=== PATIENT | male | born 1990 | race Caucasian/White ===

== ENCOUNTER 2017-10-19 16:19 | Inpatient (IN) | payer MEDICAID, SELFPAY ==
[~2017-10-19] VITALS: Ht 182.9 cm; Wt 90.9 kg
[~2017-10-19 16:19] MED LIST: AMLO10TA PO; AMLO10TA2 PO; ASPI325T PO; BENA25CA2 PO; DEPA250T32 PO; FIORICET OR; FOLI1TAB4 PO; GEMF600T PO; IBUPOTC PO; KPHOS50TA PO; LEVO750T13 PO; MAGN1TAB25 PO; MAGN400T2 PO; METO1TAB32 PO; NICO14DI3 TD; NICO21DI5 TD; NO HOME MEDS; No Historical Meds; OMEP20CA3 PO; OXAZ15CA4 PO; PERC5TAB12 PO; PERC7.5T8 OR; PERCOCET PO; THIA100TA PO; THIA50CA PO; TYLE1TAB5 PO; VITA100T88 PO; [UNRECOGNIZED DRUG - REMARK]; serax PO
[2017-10-19 18:11] LABS: BASO % 0.2 % (0.0-1.0); EOS # 0.3 10^3/uL (0.0-0.50); EOS % 1.3 % (0.0-3.0); IMMATURE GRANULOCYTE % 0.4 % (0-0); LYMPH # 2.6 10^3/uL (1.5-6.5); LYMPH % 12.7 % (24.0-44.0); MEAN CORPUSCULAR HEMOGLOBIN 33.9 pg (27.0-33.0); MEAN CORPUSCULAR HGB CONC 34.3 g/dl (32.0-36.5); MEAN CORPUSCULAR VOLUME 98.9 fl (80.0-96.0); MONO # 1.1 10^3/uL (0.0-0.8); MONO % 5.4 % (0.0-5.0); NEUTROPHILS # 16.4 10^3/uL (1.8-7.7); PLATELET COUNT, AUTOMATED 259 10^3/uL (150-450); RED CELL DISTRIBUTION WIDTH 12.9 % (11.5-14.5); WHITE BLOOD COUNT 20.4 10^3/uL (4.0-10.0)
[2017-10-19] MEDS ORDERED: ONDANSETRON 4MG/2ML VIAL (J2405) IV ONE (18:30)
[2017-10-19] MEDS ORDERED: HYDROmorphone HCL 1 MG/ML SYRINGE (J1170) IV ONE ×3 (18:30→23:30)
[2017-10-19 18:36] LABS: ALBUMIN 4.5 GM/DL (3.2-5.2); ALBUMIN/GLOBULIN RATIO 1.22 (1.00-1.93); ALKALINE PHOSPHATASE 54 U/L (45-117); ALT/SGPT 34 U/L (12-78); ANION GAP 7 MEQ/L (8-16); AST/SGOT 17 U/L (7-37); BILIRUBIN,DIRECT < 0.1 MG/DL (0.0-0.2); BILIRUBIN,TOTAL 0.5 MG/DL (0.2-1.0); BLOOD UREA NITROGEN 14 MG/DL (7-18); CALCIUM LEVEL 9.8 MG/DL (8.5-10.1); CARBON DIOXIDE LEVEL 27 MEQ/L (21-32); CHLORIDE LEVEL 104 MEQ/L (98-107); CREATININE FOR GFR 0.89 MG/DL (0.70-1.30); GLOMERULAR FILTRATION RATE > 60.0 (>60); GLUCOSE, FASTING 149 MG/DL (70-105); POTASSIUM SERUM 3.5 MEQ/L (3.5-5.1); SODIUM LEVEL 138 MEQ/L (136-145); TOTAL PROTEIN 8.2 GM/DL (6.4-8.2)
[2017-10-19] MEDS ORDERED: ISOVUE-370 76% 100ML VIAL (Q9967) As Ordered ONE (18:42)
--- NOTE | 2017-10-19 18:58 | REP ---
Clinical: Chest pain . Comparison: 08/18/2015. Findings: The mediastinum and cardiac silhouette are stable and within normal limits for portable technique. The lung rainey are clear without acute consolidation, effusion, or pneumothorax. Skeletal structures are intact. Impression: No acute cardiopulmonary process appreciated. Signed by Andrez Galdamez MD 10/19/2017 06:50 P
--- NOTE | 2017-10-19 19:23 | REP ---
Clinical: Abdominal pain. Pancreatitis. Technique: Axial contrast enhanced images from the lung bases to the pubic symphysis using 100 ml Isovue 370 intravenous contrast material with coronal and sagittal re-formations. Comparison: 04/27/2016 Findings: Mild inflammatory stranding surrounds the pancreas without evidence for ischemia, necrosis, or drainable fluid collection/abscess/pseudocyst. The gallbladder is mildly dilated with without evidence for cholelithiasis or acute cholecystitis by CT evaluation. Liver, spleen, bilateral adrenal glands and kidneys are normal. The enteric system is without obstruction or acute inflammatory process. Normal terminal ileum and appendix are identified in the right lower quadrant. Pelvis demonstrates normal bladder and age appropriate prostate/seminal vesicles. No pelvic fluid or ascites. No retroperitoneal adenopathy. No free air. No obvious solitary mass lesion. Abdominal aorta and vasculature is normal. Musculoskeletal structures are intact without focal osseous abnormality. Impression: 1. Mild acute pancreatitis without evidence for pancreatic ischemia/necrosis and no evidence for drainable collection/abscess or pseudocyst. 2. The gallbladder is mildly distended but without CT evidence for acute cholecystitis or cholelithiasis. Signed by Andrez Galdamez MD 10/19/2017 07:15 P
--- NOTE | 2017-10-19 19:54 | ECGEPIP ---
Stationary ECG Study [facility] - ED Test Date: 2017-10-19 Pat Name: ALLEGRA WEST Department: Room: - Gender: M [employer] Supervisor: PETERSON : [id number] Requested By: Jose Mercado Order Number: [id number] Reading MD: Jose Mercado Measurements Intervals [place] Rate: 90 P: 41 [place]: 137 QRS: 30 QRSD: 88 T: 29 QT: 364 QTc: 447 Interpretive Statements SINUS RHYTHM CW 04/28/16 RATE INCREASED Electronically Signed On 10-19-2017 19:54:14 EST by Jose Mercado
[2017-10-19] MEDS ORDERED: NS 1,000 ML IV ONE (21:00)
[2017-10-19 21:16] LABS: MUCUS, URINE RFX SMALL (NEGATIVE); SPECIFIC GRAVITY UR AUTO RFX 1.048 (1.002-1.035); SQUAM EPITHELIAL CELL UR AURFX 0 /HPF (0-6)
[2017-10-19 23:12] LABS: AMYLASE 26 U/L (25-115)
[2017-10-19] MEDS ORDERED: KETOROLAC 30 MG/ML VIAL (J1885) IV ONE (23:30)
[2017-10-19] MEDS: NS 1,000 ML IV SCH (23:35)
[2017-10-19 23:42] LABS: TRIGLYCERIDES LEVEL 789 MG/DL (<150)
[2017-10-19] MEDS ORDERED: ALBUTEROL SULFATE 2.5 MG/0.5 ML INH NEB SOLN INH PRN (23:45)
[2017-10-19] MEDS ORDERED: HYDROmorphone HCL 1 MG/ML SYRINGE (J1170) IV PRN (23:45)
[2017-10-19] MEDS ORDERED: ONDANSETRON 4MG/2ML VIAL (J2405) IV PRN (23:45)
[2017-10-20 00:06] LABS: METHADONE URINE NEGATIVE (NEGATIVE)
[2017-10-20 00:30] VITALS: BP 137/100
--- NOTE | 2017-10-20 00:40 | REPUSA ---
Clinical history: Right upper quadrant pain. Findings: The pancreas is limited in visualization secondary to overlying bowel gas, but appears levon sly unremarkable. The liver demonstrates increased echotexture and echogenicity, with no mass lesions . The gallbladder is unremarkable. The common bile duct measures 6 mm and is within normal limits. Th ere is no ascites. The right kidney measures 10.7 cm in length and is unremarkable. Impression: Mild fatty infiltration of the liver.
[2017-10-20] MEDS: HYDROmorphone HCL 1 MG/ML SYRINGE (J1170) IV PRN ×7 (00:53→23:38)
[2017-10-20 06:00] VITALS: BP 131/85
[2017-10-20 06:31] LABS: BASO % 0.2 % (0.0-1.0); EOS # 0.2 10^3/uL (0.0-0.50); EOS % 1.7 % (0.0-3.0); IMMATURE GRANULOCYTE % 0.4 % (0-0); LYMPH # 3.2 10^3/uL (1.5-6.5); LYMPH % 22.7 % (24.0-44.0); MEAN CORPUSCULAR HEMOGLOBIN 33.7 pg (27.0-33.0); MEAN CORPUSCULAR HGB CONC 33.9 g/dl (32.0-36.5); MEAN CORPUSCULAR VOLUME 99.2 fl (80.0-96.0); MONO % 7.1 % (0.0-5.0); NEUTROPHILS # 9.7 10^3/uL (1.8-7.7); NEUTROPHILS % 67.9 % (36.0-66.0); PLATELET COUNT, AUTOMATED 198 10^3/uL (150-450); RED CELL DISTRIBUTION WIDTH 13.1 % (11.5-14.5); WHITE BLOOD COUNT 14.2 10^3/uL (4.0-10.0)
--- NOTE | 2017-10-20 06:49 | HPE ---
DATE OF ADMISSION: 10/19/2017 Mr. Toney is a patient of BRENDA Contreras. Chief complaint is abdominal pain. The following is a summary of his presentation. This is a 27-year-old who began having abdominal pain two nights ago after dinner. It impacted his sleep. It has been consistently getting worse since then. Focused in the left upper quadrant. It goes around to his back. He has had no bowel movement in 1-2 days. No urinary symptoms. The pain is described as sharp, constant. It feels as though pliers are grabbing him. With the use of Dilaudid, the pain moderates to 6, but otherwise is a 7-8. He took an aspirin at home with no effect. The pain is not positional. He has had one episode of vomiting yesterday. He has an ADVERSE DRUG REACTION TO MORPHINE. He is currently not taking any medications at home. Past medical history is notable for pancreatitis, gastroesophageal reflux disease (GERD). No previous surgical history. Socially, he is a previous drinker. He denies alcohol use recently. He does have history of illicit drug use. Family history is notable that both parents are healthy. Review of systems is notable for no headaches, no visual changes, no runny nose, no sore throat. No neck pain. No cough. No shortness of breath. No palpitations. No bowel movement in 2 days. No urinary symptoms. No focal weakness. Otherwise, unremarkable. On physical exam, temperature is 97, pulse 52, respiratory rate is 18, blood pressure 163/94, 99% on room air. He is awake, appropriately interactive, pleasantly conversant, but does appear uncomfortable. Head is normocephalic. Sinuses are nontender. Pupils equal, round and reactive, anicteric. Mucous membranes are moist. Neck is supple. Breathing is symmetrical, rested. I-to-E ratio is 1:3. There are scattered polyphonic wheezes. Abdomen is soft with hypoactive bowel sounds. Mild left upper quadrant tenderness without rebound or guarding. There is no lower extremity edema. His moving all four extremities. He is able to move around easily in bed. Sodium 138, potassium 3.5, BUN 14, creatinine 0.9, glucose 149, troponin negative, lipase 254. White cell count is 20.4, hemoglobin 14.8 and platelets of 259. Two blood cultures are pending. Urinalysis (UA) is notable for 2+ glucose, trace ketones. Chest x-ray shows no acute process. Abdominal and pelvic CT shows mild acute pancreatitis without evidence of pancreatic ischemia or necrosis. Mildly distended gallbladder. My assessment is as follows: This is a 27-year-old with acute abdominal pain, history of pancreatitis, which is most likely early pancreatitis. Plan will be as follows: 1. Gastrointestinal (GI). Patient will be nothing by mouth, placed on intravenous (IV) fluid, begin pain management and antiemetics as needed. Repeat labs in the morning. Followup his clinical course. His CT scan suggests pancreatitis but lipase is oddly not elevated. White cell count is elevated. There is no evidence of pyelonephritis or hydronephrosis. He does appear to have an ileus. I have expressed to the patient that I believe this may be early pancreatitis but we will need to monitor him clinically in the hospital to determine whether or not there is another diagnosis at play. 2. Patient has history of gastroesophageal reflux disease. 3. Patient has history of alcohol use, but denies alcohol use currently. Patient has previous evidence of hypertriglyceridemia, is not currently on medication for that. We will check his triglycerides again. 4. Deep venous thrombosis (DVT) prophylaxis will be ordered. 5. Patient did have some wheezes on exam. Nebulizers will be ordered as needed.
[2017-10-20 07:01] LABS: ALBUMIN 3.5 GM/DL (3.2-5.2); ALKALINE PHOSPHATASE 47 U/L (45-117); ALT/SGPT 23 U/L (12-78); ANION GAP 6 MEQ/L (8-16); AST/SGOT 13 U/L (7-37); BILIRUBIN,TOTAL 0.7 MG/DL (0.2-1.0); BLOOD UREA NITROGEN 12 MG/DL (7-18); CALCIUM LEVEL 10.4 MG/DL (8.5-10.1); CARBON DIOXIDE LEVEL 28 MEQ/L (21-32); CHLORIDE LEVEL 106 MEQ/L (98-107); CREATININE FOR GFR 0.75 MG/DL (0.70-1.30); GLOMERULAR FILTRATION RATE > 60.0 (>60); GLUCOSE, FASTING 98 MG/DL (70-105); MAGNESIUM LEVEL 1.9 MG/DL (1.8-2.4); SODIUM LEVEL 140 MEQ/L (136-145)
[2017-10-20] MEDS: NS 1,000 ML IV SCH ×4 (07:14→20:37)
[2017-10-20] MEDS: ENOXAPARIN 40 MG/0.4 ML SYRINGE (J1650) SC SCH (09:29)
--- NOTE | 2017-10-20 11:18 | IPNPDOC ---
Text Note Date of Service The patient was seen on 10/20/17. NOTE Subjective: Patient is a 27 year old male with a PMHx of Pancreatitis (suspected to be 2/2 EtOH) and GERD who presented to the ER with epigastric pain. In the ER patient received imaging that was consistent with pancreatitis and was admitted for acute pancreatitis. Patient was seen and examined at the bedside. Currently he notes that his abdominal pain has had some improvement. He denies any nausea or vomiting. He denies constipation or diarrhea. He notes that he doesn't feel that hungry at this time. Objective: Vitals (See below) General: Lying in bed, no acute distress, comfortable, AAOx3 HEENT: NC, AT CVS: RRR, +S1S2 Lungs: Fair air entry b/l, -w/r/r Abdomen: Soft, ND, Epigastric and LUQ tenderness Extremities: +- Edema, - Calf tenderness Assessment and plan: Abdominal pain - likely 2/2 acute pancreatitis - etiology unclear - Possibly risk factors include elevated triglyceride levels, alcohol use - however the patient denies recent alcohol use - Physical does reveal epigastric and LUQ tenderness - Lipase levels not elevated - US abdomen 10/19: gallbladder is unremarkable, CBD of 6 mm, no ascites, fatty liver noted - CT abdomen 10/19: mild acute pancreatitis without evidence for pancreatic ischemia/necrosis, collection/abscess or pseudocyst, GB is mildly distended, without CT evidence for acute cholecystitis / cholelithiasis - c/w aggressive IV fluid hydration; will increase rate of fluids to 250 - c/w NPO diet; if symptoms are resolving will consider advancing diet - c/w symptomatic control with Dilaudid and Zofran GERD - Will start Protonix IV DVT prophylaxis - c/w Lovenox VS,Fishbone, I+O VS, Fishbone, I+O Laboratory Tests 10/19/17 17:58 Red Blood Count 4.36, Mean Corpuscular Volume 98.9 H, Mean Corpuscular Hemoglobin 33.9 H, Mean Corpuscular Hemoglobin Concent 34.3, Red Cell Distribution Width 12.9, Neutrophils (%) (Auto) 80.0 H, Lymphocytes (%) (Auto) 12.7 L, Monocytes (%) (Auto) 5.4 H, Eosinophils (%) (Auto) 1.3, Basophils (%) ( Auto) 0.2, Neutrophils # (Auto) 16.4 H, Lymphocytes # (Auto) 2.6, Monocytes # ( Auto) 1.1 H, Eosinophils # (Auto) 0.3, Basophils # (Auto) 0.0 10/20/17 06:21 Red Blood Count 3.92 L, Mean Corpuscular Volume 99.2 H, Mean Corpuscular Hemoglobin 33.7 H, Mean Corpuscular Hemoglobin Concent 33.9, Red Cell Distribution Width 13.1, Neutrophils (%) (Auto) 67.9 H, Lymphocytes (%) (Auto) 22.7 L, Monocytes (%) (Auto) 7.1 H, Eosinophils (%) (Auto) 1.7, Basophils (%) ( Auto) 0.2, Neutrophils # (Auto) 9.7 H, Lymphocytes # (Auto) 3.2, Monocytes # ( Auto) 1.0 H, Eosinophils # (Auto) 0.2, Basophils # (Auto) 0.0, Calcium Level 10.4 H, Aspartate Amino Transf (AST/SGOT) 13, Alanine Aminotransferase (ALT/SGPT ) 23, Alkaline Phosphatase 47, Total Bilirubin 0.7, Total Protein 7.0, Albumin 3.5 # Vital Signs Date Time Temp Pulse Resp B/P (MAP) Pulse Ox O2 Delivery O2 Flow Rate FiO2 10/20/17 10:30 18 10/20/17 07:14 Room Air 10/20/17 06:00 98.2 70 131/85 (100) 95 I&O- Last 24 Hours up to 6 AM 10/20/17 06:00 Intake Total 1625 ml Output Total 200 ml Balance 1425 ml LORETTA MATOS MD Oct 20, 2017 11:18
[2017-10-20] MEDS: PANTOPRAZOLE 40MG INJ (PROTONIX) (C9113) IV SCH (12:53)
[2017-10-20] MEDS ORDERED: PERCOCET 5MG/325MG TAB PO PRN (15:45)
[2017-10-20] MEDS: PERCOCET 5MG/325MG TAB PO PRN ×2 (16:02→19:55)
[2017-10-20 22:00] VITALS: BP 145/90
[2017-10-21] MEDS: NS 1,000 ML IV SCH ×6 (01:17→22:47)
[2017-10-21] MEDS: PERCOCET 5MG/325MG TAB PO PRN ×3 (01:17→10:37)
[2017-10-21] MEDS: HYDROmorphone HCL 1 MG/ML SYRINGE (J1170) IV PRN ×3 (02:43→09:13)
[2017-10-21 06:00] VITALS: BP 136/85
[2017-10-21 07:08] LABS: BASO % 0.3 % (0.0-1.0); EOS # 0.1 10^3/uL (0.0-0.50); IMMATURE GRANULOCYTE % 0.4 % (0-0); LYMPH # 1.8 10^3/uL (1.5-6.5); LYMPH % 13.3 % (24.0-44.0); MEAN CORPUSCULAR HEMOGLOBIN 32.8 pg (27.0-33.0); MEAN CORPUSCULAR HGB CONC 33.3 g/dl (32.0-36.5); MEAN CORPUSCULAR VOLUME 98.4 fl (80.0-96.0); MONO # 0.9 10^3/uL (0.0-0.8); MONO % 6.3 % (0.0-5.0); NEUTROPHILS # 10.6 10^3/uL (1.8-7.7); NEUTROPHILS % 78.7 % (36.0-66.0); PLATELET COUNT, AUTOMATED 188 10^3/uL (150-450); RED CELL DISTRIBUTION WIDTH 12.6 % (11.5-14.5); WHITE BLOOD COUNT 13.4 10^3/uL (4.0-10.0)
[2017-10-21 07:31] LABS: ALBUMIN 3.3 GM/DL (3.2-5.2); ALBUMIN/GLOBULIN RATIO 0.94 (1.00-1.93); ALKALINE PHOSPHATASE 52 U/L (45-117); ALT/SGPT 19 U/L (12-78); ANION GAP 7 MEQ/L (8-16); AST/SGOT 11 U/L (7-37); BILIRUBIN,TOTAL 0.7 MG/DL (0.2-1.0); BLOOD UREA NITROGEN 7 MG/DL (7-18); CALCIUM LEVEL 8.3 MG/DL (8.5-10.1); CARBON DIOXIDE LEVEL 27 MEQ/L (21-32); CHLORIDE LEVEL 105 MEQ/L (98-107); CREATININE FOR GFR 0.76 MG/DL (0.70-1.30); GLOMERULAR FILTRATION RATE > 60.0 (>60); GLUCOSE, FASTING 99 MG/DL (70-105); MAGNESIUM LEVEL 1.6 MG/DL (1.8-2.4); POTASSIUM SERUM 3.7 MEQ/L (3.5-5.1); SODIUM LEVEL 139 MEQ/L (136-145); TOTAL PROTEIN 6.8 GM/DL (6.4-8.2)
[2017-10-21] MEDS ORDERED: MAG SULF 1GM/100ML (MAG RUN) 1 GM in APPROPRIATE DILUENT 1 EA IV ONE (08:30)
[2017-10-21] MEDS: ENOXAPARIN 40 MG/0.4 ML SYRINGE (J1650) SC SCH (09:13)
--- NOTE | 2017-10-21 10:54 | IPNPDOC ---
Date Seen The patient was seen on 10/21/17. Progress Note Patient is a 27 year old male with a PMHx of Pancreatitis (suspected to be 2/2 EtOH) and GERD who presented to the ER with epigastric pain. In the ER patient received imaging that was consistent with pancreatitis and was admitted for acute pancreatitis. Patient was seen and examined at the bedside. Patient states that he has had significant improvement in abdominal pain. He stated that he is willing to have his pain medication reduced. He denies any nausea or vomiting. He denies constipation or diarrhea. Objective: Vitals (See below) General: Lying in bed, no acute distress, comfortable, AAOx3 HEENT: NC, AT CVS: RRR, +S1S2 Lungs: Fair air entry b/l, -w/r/r Abdomen: Soft, ND, No tenderness to palpation, Bowel sound present Extremities: No Edema, - Calf tenderness Assessment and plan: Abdominal pain - likely 2/2 acute pancreatitis - etiology unclear - Possibly risk factors include elevated triglyceride levels, alcohol use - however the patient denies recent alcohol use - Lipase levels not elevated - US abdomen 10/19: gallbladder is unremarkable, CBD of 6 mm, no ascites, fatty liver noted - CT abdomen 10/19: mild acute pancreatitis without evidence for pancreatic ischemia/necrosis, collection/abscess or pseudocyst, GB is mildly distended, without CT evidence for acute cholecystitis / cholelithiasis - c/w aggressive IV fluid hydration; will increase rate of fluids to 250 - c/w symptomatic control with Dilaudid and Zofran -start on clear liquid diet. Will advance as tolerated - D/c IV pain medication HypoMagnessium - Replacement ordered GERD - Will start Protonix IV DVT prophylaxis - c/w Lovenox VS, I&O, 24H, Fishbone Vital Signs/I&O Vital Signs Date Time Temp Pulse Resp B/P (MAP) Pulse Ox O2 Delivery O2 Flow Rate FiO2 10/21/17 10:37 16 10/21/17 06:04 Room Air 10/21/17 06:00 97.9 87 136/85 (102) 99 I&O- Last 24 Hours up to 6 AM 10/21/17 06:00 Intake Total 2250 ml Output Total 1500 ml Balance 750 ml Laboratory Data 24H LABS Laboratory Tests 2 10/21/17 06:38: Immature Granulocyte % (Auto) 0.4H, White Blood Count 13.4H, Red Blood Count 3.75L, Hemoglobin 12.3L, Hematocrit 36.9L, Mean Corpuscular Volume 98.4H, Mean Corpuscular Hemoglobin 32.8, Mean Corpuscular Hemoglobin Concent 33.3, Red Cell Distribution Width 12.6, Platelet Count 188, Neutrophils (%) (Auto) 78.7H, Lymphocytes (%) (Auto) 13.3L, Monocytes (%) (Auto) 6.3H, Eosinophils (%) (Auto) 1.0, Basophils (%) (Auto) 0.3, Neutrophils # (Auto) 10.6H, Lymphocytes # (Auto) 1.8, Monocytes # (Auto) 0.9H, Eosinophils # (Auto) 0.1, Basophils # (Auto) 0.0, Immature Granulocyte # (Auto) 0.1H, Nucleated Red Blood Cells % (auto) 0.0, Anion Gap 7L, Glomerular Filtration Rate > 60.0, Blood Urea Nitrogen 7, Creatinine 0.76, Sodium Level 139, Potassium Level 3.7, Chloride Level 105, Carbon Dioxide Level 27, Calcium Level 8.3#L, Aspartate Amino Transf (AST/SGOT) 11, Alanine Aminotransferase (ALT/SGPT) 19, Alkaline Phosphatase 52, Total Bilirubin 0.7, Total Protein 6.8, Albumin 3.3, Magnesium Level 1.6L, Albumin/ Globulin Ratio 0.94L, Lipase 78 CBC/BMP Laboratory Tests 10/21/17 06:38 Red Blood Count 3.75 L, Mean Corpuscular Volume 98.4 H, Mean Corpuscular Hemoglobin 32.8, Mean Corpuscular Hemoglobin Concent 33.3, Red Cell Distribution Width 12.6, Neutrophils (%) (Auto) 78.7 H, Lymphocytes (%) (Auto) 13.3 L, Monocytes (%) (Auto) 6.3 H, Eosinophils (%) (Auto) 1.0, Basophils (%) ( Auto) 0.3, Neutrophils # (Auto) 10.6 H, Lymphocytes # (Auto) 1.8, Monocytes # ( Auto) 0.9 H, Eosinophils # (Auto) 0.1, Basophils # (Auto) 0.0, Calcium Level 8.3 #L, Aspartate Amino Transf (AST/SGOT) 11, Alanine Aminotransferase (ALT/SGPT ) 19, Alkaline Phosphatase 52, Total Bilirubin 0.7, Total Protein 6.8, Albumin 3.3 Microbiology Microbiology 10/19/17 Blood Culture - Preliminary, Resulted No growth after 24 hours . All specim... 10/19/17 Blood Culture - Preliminary, Resulted No growth after 24 hours . All specim... GME ATTESTATION GME ATTESTATION My faculty preceptor for this patient encounter was physically present during the encounter and was fully available. All aspects of the patient interview, examination, medical decision making process, and medical care plan development were reviewed and approved by the faculty preceptor. The faculty preceptor is aware and concurs with the plan as stated in the body of this note and will attest to such by his/her cosignature. GYPSY WALKER DO Oct 21, 2017 10:54
[2017-10-21] MEDS: PANTOPRAZOLE 40MG INJ (PROTONIX) (C9113) IV SCH (12:18)
[2017-10-21 14:00] VITALS: BP 154/84
[2017-10-21] MEDS ORDERED: PERCOCET 5MG/325MG TAB PO PRN (15:00)
[2017-10-21] MEDS ORDERED: ACETAMINOPHEN TAB 650MG DOSE (2X325MG) PO PRN (15:00)
[2017-10-21 22:00] VITALS: BP 157/91
[2017-10-22] MEDS: NS 1,000 ML IV SCH ×4 (00:01→12:34)
[2017-10-22 00:37] LABS: CHOLESTEROL LEVEL 171 MG/DL (<200); TRIGLYCERIDES LEVEL 360 MG/DL (<150)
[2017-10-22 06:00] VITALS: BP 128/74
[2017-10-22 07:01] LABS: BASO % 0.3 % (0.0-1.0); EOS # 0.2 10^3/uL (0.0-0.50); EOS % 2.2 % (0.0-3.0); IMMATURE GRANULOCYTE % 0.4 % (0-0); LYMPH # 1.8 10^3/uL (1.5-6.5); LYMPH % 19.2 % (24.0-44.0); MEAN CORPUSCULAR HEMOGLOBIN 33.5 pg (27.0-33.0); MEAN CORPUSCULAR HGB CONC 33.9 g/dl (32.0-36.5); MEAN CORPUSCULAR VOLUME 98.9 fl (80.0-96.0); MONO # 0.6 10^3/uL (0.0-0.8); MONO % 6.3 % (0.0-5.0); NEUTROPHILS # 6.8 10^3/uL (1.8-7.7); NEUTROPHILS % 71.6 % (36.0-66.0); PLATELET COUNT, AUTOMATED 195 10^3/uL (150-450); RED CELL DISTRIBUTION WIDTH 12.6 % (11.5-14.5); WHITE BLOOD COUNT 9.5 10^3/uL (4.0-10.0)
[2017-10-22 07:19] LABS: ALBUMIN 3.2 GM/DL (3.2-5.2); ALBUMIN/GLOBULIN RATIO 0.94 (1.00-1.93); ALKALINE PHOSPHATASE 79 U/L (45-117); ALT/SGPT 18 U/L (12-78); ANION GAP 5 MEQ/L (8-16); AST/SGOT 17 U/L (7-37); BILIRUBIN,TOTAL 0.3 MG/DL (0.2-1.0); BLOOD UREA NITROGEN 5 MG/DL (7-18); CALCIUM LEVEL 7.6 MG/DL (8.5-10.1); CARBON DIOXIDE LEVEL 26 MEQ/L (21-32); CHLORIDE LEVEL 110 MEQ/L (98-107); CREATININE FOR GFR 0.64 MG/DL (0.70-1.30); GLOMERULAR FILTRATION RATE > 60.0 (>60); GLUCOSE, FASTING 81 MG/DL (70-105); MAGNESIUM LEVEL 2.3 MG/DL (1.8-2.4); POTASSIUM SERUM 3.8 MEQ/L (3.5-5.1); SODIUM LEVEL 141 MEQ/L (136-145); TOTAL PROTEIN 6.6 GM/DL (6.4-8.2)
[2017-10-22] MEDS: ENOXAPARIN 40 MG/0.4 ML SYRINGE (J1650) SC SCH (09:11)
[2017-10-22] MEDS ORDERED: Acetaminophen Tab PO (10:46)
[2017-10-22] MEDS ORDERED: LOVA1CAP17 PO (11:11)
[2017-10-22] MEDS: PANTOPRAZOLE 40MG INJ (PROTONIX) (C9113) IV SCH (11:25)
--- NOTE | 2017-10-22 13:21 | DS.PDOC ---
Discharge Summary General Date of Admission Oct 19, 2017 at 23:35 Date of Discharge 10/22/17 Primary Care Physician: SANGEETHA MACIAS Attending Physician: JACLYN SIDHU MD Discharge Summary PROCEDURES PERFORMED DURING STAY: None ADMITTING/DISCHARGE DIAGNOSES: 1. Pancreatitis secondary to elevated triglycerides and alcohol abuse 2. alcohol abuse 3. opiate use: tested positive for opiates COMPLICATIONS/CHIEF COMPLAINT: Pancreatitis. HOSPITAL COURSE: London Toney presented to the ED on 10/19/17 c/o abdominal pain that started two nights prior. He said it was getting worse and described it as constant/sharp and located in his left upper quadrant with radiation to this back. He rated his pain as 7-8/10 with minimal improvement to 6/10 with dilaudid. His lipase levels were within normal limits but a CT of the abdomen and pelvis showed mild pancreatitis without evidence for pancreatic ischemia/ necrosis. There was no evidence for drainable collection/abscess/pseudocyst. CT also showed a mildly distended gallbladder without evidence for cholecystitis or cholelithiasis. His triglycerides were found to be high at 789 and WBC was 20.4. Hospitalist was called for admission. He was made NPO and started on IV fluids, antiemetics, and pain management. His symptoms resolved during his hospital course and on day of discharge he denied abdominal pain and he tolerated normal diet well. DISCHARGE MEDICATIONS: Please see below. ALLERGIES: Please see below. PHYSICAL EXAMINATION ON DISCHARGE: VITAL SIGNS: Please see below. GENERAL: cooperative, sitting upright in bed, in no apparent distress HEENT: NC/AT, mucous membranes moist CARDIOVASCULAR EXAMINATION: RRR, no murmurs rubs or gallops RESPIRATORY EXAMINATION: clear to auscultation ABDOMINAL EXAMINATION: nontender to palpation, nondistended, soft LABORATORY DATA: Please see below. PROGNOSIS: fair ACTIVITY: as tolerated DIET: as tolerated DISCHARGE PLAN: discharge to home DISPOSITION: stable DISCHARGE INSTRUCTIONS: 1. follow up with PCP in 1-2 weeks 2. avoid alcohol 3. avoid opiates 4. take omega-3 fatty acids as prescribed 5. return if pain worsens or symptoms do not resolve ITEMS TO FOLLOWUP ON ON OUTPATIENT: 1. elevated triglycerides. take omega-3 fatty acids as prescribed 2. drugs and alcohol counseling/cessation DISCHARGE CONDITION: Stable. TIME SPENT ON DISCHARGE: Greater than 30 minutes. Vital Signs/I&Os Vital Signs Date Time Temp Pulse Resp B/P (MAP) Pulse Ox O2 Delivery O2 Flow Rate FiO2 10/22/17 06:00 98.0 78 18 128/74 (92) 97 10/21/17 20:00 Room Air I&O- Last 24 Hours up to 6 AM 10/22/17 06:00 Intake Total 1440 ml Balance 1440 ml Laboratory Data Labs 24H Laboratory Tests 2 10/22/17 06:29: Immature Granulocyte % (Auto) 0.4H, White Blood Count 9.5, Red Blood Count 3.52L , Hemoglobin 11.8L, Hematocrit 34.8L, Mean Corpuscular Volume 98.9H, Mean Corpuscular Hemoglobin 33.5H, Mean Corpuscular Hemoglobin Concent 33.9, Red Cell Distribution Width 12.6, Platelet Count 195, Neutrophils (%) (Auto) 71.6H, Lymphocytes (%) (Auto) 19.2L, Monocytes (%) (Auto) 6.3H, Eosinophils (%) (Auto) 2.2, Basophils (%) (Auto) 0.3, Neutrophils # (Auto) 6.8, Lymphocytes # (Auto) 1.8, Monocytes # (Auto) 0.6, Eosinophils # (Auto) 0.2, Basophils # (Auto) 0.0, Immature Granulocyte # (Auto) 0.0, Nucleated Red Blood Cells % (auto) 0.0, Anion Gap 5L, Glomerular Filtration Rate > 60.0, Blood Urea Nitrogen 5L, Creatinine 0.64L, Sodium Level 141, Potassium Level 3.8, Chloride Level 110H, Carbon Dioxide Level 26, Calcium Level 7.6L, Aspartate Amino Transf (AST/SGOT) 17, Alanine Aminotransferase (ALT/SGPT) 18, Alkaline Phosphatase 79, Total Bilirubin 0.3#, Total Protein 6.6, Albumin 3.2, Magnesium Level 2.3, Albumin/ Globulin Ratio 0.94L, Lipase 58L CBC/BMP Laboratory Tests 10/22/17 06:29 Red Blood Count 3.52 L, Mean Corpuscular Volume 98.9 H, Mean Corpuscular Hemoglobin 33.5 H, Mean Corpuscular Hemoglobin Concent 33.9, Red Cell Distribution Width 12.6, Neutrophils (%) (Auto) 71.6 H, Lymphocytes (%) (Auto) 19.2 L, Monocytes (%) (Auto) 6.3 H, Eosinophils (%) (Auto) 2.2, Basophils (%) ( Auto) 0.3, Neutrophils # (Auto) 6.8, Lymphocytes # (Auto) 1.8, Monocytes # (Auto ) 0.6, Eosinophils # (Auto) 0.2, Basophils # (Auto) 0.0, Calcium Level 7.6 L, Aspartate Amino Transf (AST/SGOT) 17, Alanine Aminotransferase (ALT/SGPT) 18, Alkaline Phosphatase 79, Total Bilirubin 0.3 #, Total Protein 6.6, Albumin 3.2 Microbiology Microbiology 10/19/17 Blood Culture - Preliminary, Resulted No Growth after 48 hours. All Specime... 10/19/17 Blood Culture - Preliminary, Resulted No Growth after 48 hours. All Specime... Discharge Medications Scheduled [place] 3 Polyunsat Fatty Acids (Lovaza 1 gm) 1 Cap Cap, 1 CAP PO DAILY Scheduled PRN [Acetaminophen Tab] 325 MG/TAB TAB, 650 MG PO Q6HP PRN for PAIN / FEVER Allergies Coded Allergies: Morphine (Verified Adverse Reaction, Mild, MUSCLES TENSE UP, 08/15/15) TOLERATED PREVIOUS DOSES AND 2 DOSES IN THE ER TODAY 08/15/15 GME ATTESTATION GME ATTESTATION My faculty preceptor for this patient encounter was physically present during the encounter and was fully available. All aspects of the patient interview, examination, medical decision making process, and medical care plan development were reviewed and approved by the faculty preceptor. The faculty preceptor is aware and concurs with the plan as stated in the body of this note and will attest to such by his/her cosignature. GYPSY WALKER DO Oct 22, 2017 10:13
[2017-10-22] MEDS ORDERED: ATOR1TAB21 PO (15:35)
[2017-10-22] MEDS ORDERED: OMEG100011 PO (15:35)
== END 2017-10-22 14:45 | disposition home or self-care (01) | DRG 282 ==
LOC: M ED 16:19 → M ED INP 23:35 → M MS5PR 10-20 00:29
PROVIDERS: ADMIT Internal Medicine; ATTEND Internal Medicine
DX: K85.20 Alcohol induced acute pancreatitis without necrosis or infection (principal); F10.10 Alcohol abuse, uncomplicated; F11.90 Opioid use, unspecified, uncomplicated; Z88.5 Allergy status to narcotic agent; K21.9 Gastro-esophageal reflux disease without esophagitis

== ENCOUNTER 2017-11-06 18:07 | Inpatient (IN) | payer SELFPAY ==
[2017-11-06] MEDS: NS 1,000 ML IV (20:30)
[2017-11-06] MEDS: ONDANSETRON 4MG/2ML VIAL (J2405) IV (20:30)
[2017-11-06] MEDS: HYDROmorphone HCL 1 MG/ML SYRINGE (J1170) IV (20:31)
[2017-11-06 20:36] LABS: BASO # 0.1 10^3/uL (0.0-0.2); BASO % 0.4 % (0.0-1.0); EOS # 0.3 10^3/uL (0.0-0.50); EOS % 1.7 % (0.0-3.0); HEMATOCRIT 48.1 % (42.0-52.0); HEMOGLOBIN 16.1 g/dl (14.0-18.0); IMMATURE GRANULOCYTE # 0.1 10^3/uL (0-0); IMMATURE GRANULOCYTE % 0.3 % (0-0); LYMPH % 18.3 % (24.0-44.0); MEAN CORPUSCULAR HEMOGLOBIN 32.7 pg (27.0-33.0); MEAN CORPUSCULAR HGB CONC 33.5 g/dl (32.0-36.5); MEAN CORPUSCULAR VOLUME 97.8 fl (80.0-96.0); MONO # 1.1 10^3/uL (0.0-0.8); MONO % 6.7 % (0.0-5.0); NEUTROPHILS # 11.9 10^3/uL (1.8-7.7); NEUTROPHILS % 72.6 % (36.0-66.0); PLATELET COUNT, AUTOMATED 301 10^3/uL (150-450); RED BLOOD COUNT 4.92 10^6/uL (4.30-6.10); RED CELL DISTRIBUTION WIDTH 12.6 % (11.5-14.5); WHITE BLOOD COUNT 16.3 10^3/uL (4.0-10.0)
[2017-11-06 20:50] LABS: INR 0.94; PROTHROMBIN TIME 12.6 SECONDS (12.4-14.5)
[2017-11-06 20:56] LABS: APPEARANCE, URINE CLEAR (CLEAR); BACTERIA, URINE AUTO NEGATIVE (NEGATIVE); BILIRUBIN, URINE AUTO NEGATIVE (NEGATIVE); BLOOD, URINE BLOOD NEGATIVE (NEGATIVE); COLOR, URINE AMBER (YELLOW); GLUCOSE, URINE (UA) AUTO 1+ mg/dL (NEGATIVE); KETONE, URINE AUTO TRACE mg/dL (NEGATIVE); LEUKOCYTE ESTERASE, URINE AUTO NEGATIVE (NEGATIVE); MUCUS, URINE SMALL (NEGATIVE); NITRITE, URINE AUTO NEGATIVE (NEGATIVE); PROTEIN, URINE AUTO 1+ mg/dL (NEGATIVE); RBC, URINE AUTO 3 /HPF (0-3); SPECIFIC GRAVITY URINE AUTO 1.051 (1.002-1.035); SQUAMOUS EPITHELIAL CELL UR AU 0 /HPF (0-6); UROBILINOGEN, URINE AUTO 0.2 mg/dL (0.0-2.0); WBC, URINE AUTO 1 /HPF (0-3)
[2017-11-06 21:12] LABS: ALBUMIN 5.1 GM/DL (3.2-5.2); ALBUMIN/GLOBULIN RATIO 1.38 (1.00-1.93); ALKALINE PHOSPHATASE 95 U/L (45-117); ALT/SGPT 41 U/L (12-78); AMYLASE 23 U/L (25-115); ANION GAP 9 MEQ/L (8-16); AST/SGOT 23 U/L (7-37); BILIRUBIN,DIRECT 0.2 MG/DL (0.0-0.2); BILIRUBIN,TOTAL 0.8 MG/DL (0.2-1.0); BLOOD UREA NITROGEN 15 MG/DL (7-18); CALCIUM LEVEL 10.9 MG/DL (8.5-10.1); CARBON DIOXIDE LEVEL 28 MEQ/L (21-32); CHLORIDE LEVEL 103 MEQ/L (98-107); CPK CREATINE PHOSPHOKINASE 45 U/L (39-308); CREATININE FOR GFR 0.96 MG/DL (0.70-1.30); GLOMERULAR FILTRATION RATE > 60.0 (>60); GLUCOSE, FASTING 127 MG/DL (70-105); LIPASE 226 U/L (73-393); MB/CK RELATIVE INDEX 2.22 (< OR =4); POTASSIUM SERUM 4.1 MEQ/L (3.5-5.1); SODIUM LEVEL 140 MEQ/L (136-145); TOTAL PROTEIN 8.8 GM/DL (6.4-8.2); TROPONIN I < 0.02 NG/ML (< 0.10)
[2017-11-06] MEDS ORDERED: ISOVUE-370 76% 100ML VIAL (Q9967) As Ordered (21:54)
[2017-11-06] MEDS ORDERED: MORPHINE 2 MG/ML 1ML SYRINGE IV (22:45)
[2017-11-06] MEDS ORDERED: ONDANSETRON 4MG/2ML VIAL (J2405) IV (22:45)
[2017-11-06 23:03] LABS: C REACTIVE PROTEIN QUANTITATIV 1.41 MG/DL (0.00-0.30)
[2017-11-06 23:13] LABS: ETHYL ALCOHOL (ETHANOL) < 0.003 % (0.000-0.010)
[2017-11-06] MEDS: MULTIVITAMIN -ADULT INJECTION 10 ML, THIAMINE INJection 100 MG, FOLIC ACID 1 MG in NS 1... IV (23:35)
[2017-11-06] MEDS: MORPHINE 2 MG/ML 1ML SYRINGE IV (23:36)
[2017-11-06 23:50] LABS: ERYTHROCYTE SEDIMENTATION RATE 3 mm/hr (0-15)
[2017-11-07] MEDS: NS 1,000 ML IV ×4 (01:15→18:21)
[2017-11-07] MEDS: MORPHINE 2 MG/ML 1ML SYRINGE IV ×5 (03:27→21:40)
[2017-11-07 05:37] LABS: BASO % 0.2 % (0.0-1.0); EOS # 0.3 10^3/uL (0.0-0.50); EOS % 2.2 % (0.0-3.0); HEMATOCRIT 39.6 % (42.0-52.0); IMMATURE GRANULOCYTE % 0.2 % (0-0); LYMPH # 2.7 10^3/uL (1.5-6.5); LYMPH % 22.1 % (24.0-44.0); MEAN CORPUSCULAR HEMOGLOBIN 32.8 pg (27.0-33.0); MEAN CORPUSCULAR HGB CONC 33.6 g/dl (32.0-36.5); MEAN CORPUSCULAR VOLUME 97.8 fl (80.0-96.0); MONO # 0.9 10^3/uL (0.0-0.8); MONO % 7.5 % (0.0-5.0); NEUTROPHILS # 8.3 10^3/uL (1.8-7.7); NEUTROPHILS % 67.8 % (36.0-66.0); RED BLOOD COUNT 4.05 10^6/uL (4.30-6.10); RED CELL DISTRIBUTION WIDTH 12.4 % (11.5-14.5); WHITE BLOOD COUNT 12.2 10^3/uL (4.0-10.0)
[2017-11-07 05:48] LABS: HEMOGLOBIN 13.3 g/dl (14.0-18.0); PLATELET COUNT, AUTOMATED 199 10^3/uL (150-450)
[2017-11-07 06:01] LABS: ANION GAP 6 MEQ/L (8-16); BLOOD UREA NITROGEN 12 MG/DL (7-18); C REACTIVE PROTEIN QUANTITATIV 2.19 MG/DL (0.00-0.30); CALCIUM LEVEL 9.6 MG/DL (8.5-10.1); CARBON DIOXIDE LEVEL 28 MEQ/L (21-32); CHLORIDE LEVEL 105 MEQ/L (98-107); CREATININE FOR GFR 0.73 MG/DL (0.70-1.30); GAMMA GLUTAMYLTRANSPEPTIDASE 298 U/L (15-85); GLOMERULAR FILTRATION RATE > 60.0 (>60); GLUCOSE, FASTING 108 MG/DL (70-105); LIPASE 168 U/L (73-393); POTASSIUM SERUM 3.6 MEQ/L (3.5-5.1); SODIUM LEVEL 139 MEQ/L (136-145)
[2017-11-07] MEDS: PANTOPRAZOLE 40MG INJ (PROTONIX) (C9113) IV (08:25)
[2017-11-07] MEDS: ENOXAPARIN 40 MG/0.4 ML SYRINGE (J1650) SC (08:25)
[2017-11-07] MEDS: ACETAMINOPHEN TAB 650MG DOSE (2X325MG) PO ×2 (15:40→21:39)
[2017-11-07 16:46] LABS: VITAMIN B12 LEVEL 628 PG/ML (247-911)
[2017-11-07 16:47] LABS: FOLATE > 24.0 NG/ML (>5.4)
[2017-11-08] MEDS: NS 1,000 ML IV ×5 (00:08→21:27)
[2017-11-08] MEDS: MORPHINE 2 MG/ML 1ML SYRINGE IV ×5 (02:40→21:28)
[2017-11-08 06:27] LABS: BASO % 0.4 % (0.0-1.0); EOS # 0.3 10^3/uL (0.0-0.50); EOS % 3.2 % (0.0-3.0); HEMOGLOBIN 12.2 g/dl (14.0-18.0); IMMATURE GRANULOCYTE % 0.1 % (0-0); LYMPH % 35.3 % (24.0-44.0); MEAN CORPUSCULAR HEMOGLOBIN 33.2 pg (27.0-33.0); MEAN CORPUSCULAR HGB CONC 33.9 g/dl (32.0-36.5); MEAN CORPUSCULAR VOLUME 98.1 fl (80.0-96.0); MONO # 0.6 10^3/uL (0.0-0.8); MONO % 7.4 % (0.0-5.0); NEUTROPHILS # 4.6 10^3/uL (1.8-7.7); NEUTROPHILS % 53.6 % (36.0-66.0); PLATELET COUNT, AUTOMATED 192 10^3/uL (150-450); RED BLOOD COUNT 3.67 10^6/uL (4.30-6.10); WHITE BLOOD COUNT 8.5 10^3/uL (4.0-10.0)
[2017-11-08 06:52] LABS: C REACTIVE PROTEIN QUANTITATIV 2.27 MG/DL (0.00-0.30)
[2017-11-08 06:52] LABS: LIPASE 147 U/L (73-393)
[2017-11-08] MEDS: PANTOPRAZOLE 40MG INJ (PROTONIX) (C9113) IV (08:16)
[2017-11-08] MEDS: ENOXAPARIN 40 MG/0.4 ML SYRINGE (J1650) SC (08:17)
[2017-11-08] MEDS: LORazepam 1 MG TAB PO (14:22)
[2017-11-09] MEDS: NS 1,000 ML IV ×2 (01:20→04:13)
[2017-11-09] MEDS: LORazepam 1 MG TAB PO (01:21)
[2017-11-09] MEDS: MORPHINE 2 MG/ML 1ML SYRINGE IV ×2 (01:21→04:13)
[2017-11-09 07:40] LABS: BASO % 0.3 % (0.0-1.0); EOS # 0.3 10^3/uL (0.0-0.50); EOS % 3.1 % (0.0-3.0); HEMATOCRIT 38.3 % (42.0-52.0); IMMATURE GRANULOCYTE % 0.3 % (0-0); LYMPH # 2.5 10^3/uL (1.5-6.5); LYMPH % 25.9 % (24.0-44.0); MEAN CORPUSCULAR HEMOGLOBIN 32.7 pg (27.0-33.0); MEAN CORPUSCULAR HGB CONC 33.9 g/dl (32.0-36.5); MEAN CORPUSCULAR VOLUME 96.2 fl (80.0-96.0); MONO # 0.6 10^3/uL (0.0-0.8); MONO % 6.4 % (0.0-5.0); NEUTROPHILS # 6.3 10^3/uL (1.8-7.7); PLATELET COUNT, AUTOMATED 230 10^3/uL (150-450); RED BLOOD COUNT 3.98 10^6/uL (4.30-6.10); RED CELL DISTRIBUTION WIDTH 12.1 % (11.5-14.5); WHITE BLOOD COUNT 9.8 10^3/uL (4.0-10.0)
[2017-11-09 08:04] LABS: ANION GAP 10 MEQ/L (8-16); BLOOD UREA NITROGEN 6 MG/DL (7-18); CALCIUM LEVEL 8.6 MG/DL (8.5-10.1); CARBON DIOXIDE LEVEL 24 MEQ/L (21-32); CHLORIDE LEVEL 105 MEQ/L (98-107); GLOMERULAR FILTRATION RATE > 60.0 (>60); GLUCOSE, FASTING 59 MG/DL (70-105); LIPASE 130 U/L (73-393); POTASSIUM SERUM 3.6 MEQ/L (3.5-5.1); SODIUM LEVEL 139 MEQ/L (136-145)
[2017-11-09] MEDS: ENOXAPARIN 40 MG/0.4 ML SYRINGE (J1650) SC (09:00)
[2017-11-09] MEDS: PANTOPRAZOLE 40MG INJ (PROTONIX) (C9113) IV (09:18)
[2017-11-09] MEDS: ACETAMINOPHEN TAB 650MG DOSE (2X325MG) PO (09:32)
== END 2017-11-09 11:25 | disposition home or self-care (01) | DRG 282 ==
LOC: M MS4PR 11-07 10:30 → M MS5PR 11-07 17:13 → M ED 18:07 → M ED INP 22:34
DX: K85.20 Alcohol induced acute pancreatitis without necrosis or infection (principal); I10 Essential (primary) hypertension; K21.9 Gastro-esophageal reflux disease without esophagitis; F17.210 Nicotine dependence, cigarettes, uncomplicated; F10.20 Alcohol dependence, uncomplicated; Z88.5 Allergy status to narcotic agent; I16.0 Hypertensive urgency

== ENCOUNTER 2017-11-10 21:21 | Emergency (ER) | payer MEDICAID, SELFPAY ==
[2017-11-10] MEDS: FLUORESCEIN OPHTH 1 MG STRIP OD (23:30)
[2017-11-10] MEDS: TETRACAINE 0.5% OPHTH SOLN 4ML OD (23:30)
[2017-11-11] MEDS: diphenhydrAMINE INJ 50MG/ML VIAL (J1200) IV (00:06)
[2017-11-11] MEDS: KETOROLAC 30 MG/ML VIAL (J1885) IV (00:15)
[2017-11-11] MEDS: METOCLOPRAMIDE INJ 10MG/2ML VIAL (J2765) IV (00:15)
== END 2017-11-11 01:14 | disposition home or self-care (01) ==
LOC: M ED 21:21
DX: G43.809 Other migraine, not intractable, without status migrainosus (principal); F41.9 Anxiety disorder, unspecified; F33.9 Major depressive disorder, recurrent, unspecified; Z87.19 Personal history of other diseases of the digestive system
CPT/HCPCS: J1200

== ENCOUNTER 2017-11-24 17:25 | Inpatient (IN) | payer MEDICAID ==
[2017-11-24 19:34] LABS: BASO # 0.1 10^3/uL (0.0-0.2); BASO % 0.4 % (0.0-1.0); EOS # 0.6 10^3/uL (0.0-0.50); EOS % 3.4 % (0.0-3.0); HEMATOCRIT 43.4 % (42.0-52.0); HEMOGLOBIN 14.6 g/dl (14.0-18.0); IMMATURE GRANULOCYTE # 0.1 10^3/uL (0-0); IMMATURE GRANULOCYTE % 0.3 % (0-0); LYMPH % 18.2 % (24.0-44.0); MEAN CORPUSCULAR HEMOGLOBIN 32.3 pg (27.0-33.0); MEAN CORPUSCULAR HGB CONC 33.6 g/dl (32.0-36.5); MONO # 1.1 10^3/uL (0.0-0.8); MONO % 6.5 % (0.0-5.0); NEUTROPHILS # 11.6 10^3/uL (1.8-7.7); NEUTROPHILS % 71.2 % (36.0-66.0); PLATELET COUNT, AUTOMATED 266 10^3/uL (150-450); RED BLOOD COUNT 4.52 10^6/uL (4.30-6.10); RED CELL DISTRIBUTION WIDTH 12.5 % (11.5-14.5); WHITE BLOOD COUNT 16.3 10^3/uL (4.0-10.0)
[2017-11-24] MEDS: NS 1,000 ML IV ×3 (19:43→21:30)
[2017-11-24] MEDS: HYDROmorphone HCL 1 MG/ML SYRINGE (J1170) IV ×3 (19:44→22:35)
[2017-11-24 20:15] LABS: ALBUMIN 4.3 GM/DL (3.2-5.2); ALBUMIN/GLOBULIN RATIO 1.43 (1.00-1.93); ALKALINE PHOSPHATASE 62 U/L (45-117); ALT/SGPT 44 U/L (12-78); AMYLASE 21 U/L (25-115); ANION GAP 9 MEQ/L (8-16); AST/SGOT 31 U/L (7-37); BILIRUBIN,DIRECT < 0.1 MG/DL (0.0-0.2); BILIRUBIN,TOTAL 0.3 MG/DL (0.2-1.0); BLOOD UREA NITROGEN 14 MG/DL (7-18); CALCIUM LEVEL 10.4 MG/DL (8.5-10.1); CARBON DIOXIDE LEVEL 25 MEQ/L (21-32); CHLORIDE LEVEL 105 MEQ/L (98-107); CREATININE FOR GFR 0.67 MG/DL (0.70-1.30); GLOMERULAR FILTRATION RATE > 60.0 (>60); GLUCOSE, FASTING 154 MG/DL (70-100); LIPASE 218 U/L (73-393); SODIUM LEVEL 139 MEQ/L (136-145); TOTAL PROTEIN 7.3 GM/DL (6.4-8.2)
[2017-11-24 20:17] LABS: LACTIC ACID SEPSIS PROTOCOL 0.8 MMOL/L (0.4-2.0)
[2017-11-24] MEDS ORDERED: ISOVUE-370 76% 100ML VIAL (Q9967) As Ordered (20:21)
[2017-11-24] MEDS ORDERED: MORPHINE 2 MG/ML 1ML SYRINGE IV (21:30)
[2017-11-24] MEDS ORDERED: HYDROmorphone HCL 1 MG/ML SYRINGE (J1170) IV (22:00)
[2017-11-24] MEDS: ENOXAPARIN 40 MG/0.4 ML SYRINGE (J1650) SC (22:36)
[2017-11-24] MEDS: IMIPENEM/CILASTATIN 500 MG in D5W MINI-BAG PLUS 100 ML IV (22:43)
[2017-11-25] MEDS: HYDROmorphone HCL 2 MG/ML 1ML VIAL (J1170) IV ×8 (01:03→23:31)
[2017-11-25] MEDS: ONDANSETRON 4MG/2ML VIAL (J2405) IV ×3 (03:56→17:28)
[2017-11-25] MEDS: IMIPENEM/CILASTATIN 500 MG in D5W MINI-BAG PLUS 100 ML IV ×4 (04:32→22:00)
[2017-11-25] MEDS: NS 1,000 ML IV ×2 (04:32→08:20)
[2017-11-25 05:02] LABS: BASO % 0.3 % (0.0-1.0); EOS # 0.5 10^3/uL (0.0-0.50); EOS % 3.8 % (0.0-3.0); HEMATOCRIT 40.6 % (42.0-52.0); HEMOGLOBIN 13.3 g/dl (14.0-18.0); IMMATURE GRANULOCYTE % 0.2 % (0-0); LYMPH # 2.9 10^3/uL (1.5-6.5); LYMPH % 22.4 % (24.0-44.0); MEAN CORPUSCULAR HEMOGLOBIN 32.2 pg (27.0-33.0); MEAN CORPUSCULAR HGB CONC 32.8 g/dl (32.0-36.5); MEAN CORPUSCULAR VOLUME 98.3 fl (80.0-96.0); MONO % 7.5 % (0.0-5.0); NEUTROPHILS # 8.6 10^3/uL (1.8-7.7); NEUTROPHILS % 65.8 % (36.0-66.0); PLATELET COUNT, AUTOMATED 217 10^3/uL (150-450); RED BLOOD COUNT 4.13 10^6/uL (4.30-6.10); RED CELL DISTRIBUTION WIDTH 12.6 % (11.5-14.5); WHITE BLOOD COUNT 13.1 10^3/uL (4.0-10.0)
[2017-11-25 05:44] LABS: ALBUMIN 3.5 GM/DL (3.2-5.2); ALBUMIN/GLOBULIN RATIO 1.06 (1.00-1.93); ALKALINE PHOSPHATASE 62 U/L (45-117); ALT/SGPT 35 U/L (12-78); ANION GAP 5 MEQ/L (8-16); AST/SGOT 17 U/L (7-37); BILIRUBIN,TOTAL 0.4 MG/DL (0.2-1.0); BLOOD UREA NITROGEN 8 MG/DL (7-18); CARBON DIOXIDE LEVEL 29 MEQ/L (21-32); CHLORIDE LEVEL 106 MEQ/L (98-107); CREATININE FOR GFR 0.62 MG/DL (0.70-1.30); GLOMERULAR FILTRATION RATE > 60.0 (>60); GLUCOSE, FASTING 131 MG/DL (70-100); POTASSIUM SERUM 3.8 MEQ/L (3.5-5.1); SODIUM LEVEL 140 MEQ/L (136-145); TOTAL PROTEIN 6.8 GM/DL (6.4-8.2)
[2017-11-25] MEDS: PANTOPRAZOLE 40MG INJ (PROTONIX) (C9113) IV ×2 (08:20→20:31)
[2017-11-25] MEDS: LR 1,000 ML IV ×4 (08:54→23:30)
[2017-11-25 14:27] LABS: AMYLASE 18 U/L (25-115)
[2017-11-25 14:27] LABS: LIPASE 118 U/L (73-393)
[2017-11-25] MEDS: ACETAMINOPHEN TAB 650MG DOSE (2X325MG) PO ×2 (16:12→16:42)
[2017-11-25] MEDS: ENOXAPARIN 40 MG/0.4 ML SYRINGE (J1650) SC (22:01)
[2017-11-26] MEDS: HYDROmorphone HCL 2 MG/ML 1ML VIAL (J1170) IV ×2 (02:32→05:26)
[2017-11-26] MEDS: LR 1,000 ML IV (02:50)
[2017-11-26 05:21] LABS: BASO % 0.3 % (0.0-1.0); EOS # 0.4 10^3/uL (0.0-0.50); HEMATOCRIT 37.4 % (42.0-52.0); HEMOGLOBIN 12.2 g/dl (14.0-18.0); IMMATURE GRANULOCYTE % 0.2 % (0-0); LYMPH # 2.7 10^3/uL (1.5-6.5); LYMPH % 29.6 % (24.0-44.0); MEAN CORPUSCULAR HGB CONC 32.6 g/dl (32.0-36.5); MEAN CORPUSCULAR VOLUME 98.2 fl (80.0-96.0); MONO # 0.7 10^3/uL (0.0-0.8); NEUTROPHILS # 5.3 10^3/uL (1.8-7.7); NEUTROPHILS % 57.9 % (36.0-66.0); PLATELET COUNT, AUTOMATED 190 10^3/uL (150-450); RED BLOOD COUNT 3.81 10^6/uL (4.30-6.10); RED CELL DISTRIBUTION WIDTH 12.3 % (11.5-14.5); WHITE BLOOD COUNT 9.1 10^3/uL (4.0-10.0)
[2017-11-26] MEDS: IMIPENEM/CILASTATIN 500 MG in D5W MINI-BAG PLUS 100 ML IV ×4 (05:27→22:26)
[2017-11-26 05:42] LABS: ALBUMIN 3.4 GM/DL (3.2-5.2); ALBUMIN/GLOBULIN RATIO 1.17 (1.00-1.93); ALKALINE PHOSPHATASE 52 U/L (45-117); ALT/SGPT 26 U/L (12-78); ANION GAP 4 MEQ/L (8-16); AST/SGOT 12 U/L (7-37); BILIRUBIN,TOTAL 0.3 MG/DL (0.2-1.0); BLOOD UREA NITROGEN 5 MG/DL (7-18); CALCIUM LEVEL 9.6 MG/DL (8.5-10.1); CARBON DIOXIDE LEVEL 33 MEQ/L (21-32); CHLORIDE LEVEL 104 MEQ/L (98-107); CREATININE FOR GFR 0.61 MG/DL (0.70-1.30); GLOMERULAR FILTRATION RATE > 60.0 (>60); GLUCOSE, FASTING 100 MG/DL (70-100); POTASSIUM SERUM 3.6 MEQ/L (3.5-5.1); SODIUM LEVEL 141 MEQ/L (136-145); TOTAL PROTEIN 6.3 GM/DL (6.4-8.2)
[2017-11-26] MEDS ORDERED: OXAZEPAM 10 MG CAP PO (08:00)
[2017-11-26] MEDS: PANTOPRAZOLE 40MG INJ (PROTONIX) (C9113) IV ×2 (08:27→20:55)
[2017-11-26] MEDS: MULTIVITAMINS/MINERALS THERAP 1 TAB PO (08:27)
[2017-11-26] MEDS: OXAZEPAM 10 MG CAP PO ×4 (08:28→23:34)
[2017-11-26] MEDS: THIAMINE 100 MG TAB PO (08:28)
[2017-11-26] MEDS: FOLIC ACID 1 MG TAB PO (08:28)
[2017-11-26] MEDS: SENOKOT S TAB PO ×2 (08:34→20:47)
[2017-11-26] MEDS: KCL 20MEQ IN 0.45NS 1000ML 1,000 ML IV ×3 (08:57→20:55)
[2017-11-26] MEDS: MORPHINE 4 MG/ML 1ML SYRINGE IV ×4 (09:02→20:56)
[2017-11-26] MEDS: ENOXAPARIN 40 MG/0.4 ML SYRINGE (J1650) SC (22:25)
[2017-11-27] MEDS: MORPHINE 4 MG/ML 1ML SYRINGE IV ×6 (00:25→18:08)
[2017-11-27] MEDS: KCL 20MEQ IN 0.45NS 1000ML 1,000 ML IV ×3 (01:58→23:42)
[2017-11-27] MEDS: IMIPENEM/CILASTATIN 500 MG in D5W MINI-BAG PLUS 100 ML IV ×4 (05:24→23:41)
[2017-11-27] MEDS: OXAZEPAM 10 MG CAP PO ×4 (05:24→23:42)
[2017-11-27 05:59] LABS: BASO # 0.1 10^3/uL (0.0-0.2); BASO % 0.6 % (0.0-1.0); EOS # 0.5 10^3/uL (0.0-0.50); EOS % 6.1 % (0.0-3.0); HEMATOCRIT 36.1 % (42.0-52.0); HEMOGLOBIN 12.1 g/dl (14.0-18.0); IMMATURE GRANULOCYTE % 0.1 % (0-0); LYMPH # 3.7 10^3/uL (1.5-6.5); LYMPH % 46.4 % (24.0-44.0); MEAN CORPUSCULAR HEMOGLOBIN 32.6 pg (27.0-33.0); MEAN CORPUSCULAR HGB CONC 33.5 g/dl (32.0-36.5); MEAN CORPUSCULAR VOLUME 97.3 fl (80.0-96.0); MONO # 0.6 10^3/uL (0.0-0.8); NEUTROPHILS # 3.2 10^3/uL (1.8-7.7); NEUTROPHILS % 39.8 % (36.0-66.0); PLATELET COUNT, AUTOMATED 186 10^3/uL (150-450); RED BLOOD COUNT 3.71 10^6/uL (4.30-6.10); RED CELL DISTRIBUTION WIDTH 12.2 % (11.5-14.5); WHITE BLOOD COUNT 7.9 10^3/uL (4.0-10.0)
[2017-11-27 06:21] LABS: ALBUMIN 3.4 GM/DL (3.2-5.2); ALBUMIN/GLOBULIN RATIO 1.26 (1.00-1.93); ALKALINE PHOSPHATASE 54 U/L (45-117); ALT/SGPT 22 U/L (12-78); ANION GAP 5 MEQ/L (8-16); AST/SGOT 15 U/L (7-37); BILIRUBIN,TOTAL 0.4 MG/DL (0.2-1.0); BLOOD UREA NITROGEN 5 MG/DL (7-18); CALCIUM LEVEL 8.6 MG/DL (8.5-10.1); CARBON DIOXIDE LEVEL 30 MEQ/L (21-32); CHLORIDE LEVEL 104 MEQ/L (98-107); CREATININE FOR GFR 0.65 MG/DL (0.70-1.30); GLOMERULAR FILTRATION RATE > 60.0 (>60); GLUCOSE, FASTING 77 MG/DL (70-100); POTASSIUM SERUM 3.8 MEQ/L (3.5-5.1); SODIUM LEVEL 139 MEQ/L (136-145); TOTAL PROTEIN 6.1 GM/DL (6.4-8.2)
[2017-11-27] MEDS: PANTOPRAZOLE 40MG INJ (PROTONIX) (C9113) IV ×2 (08:17→21:14)
[2017-11-27] MEDS: SENOKOT S TAB PO ×2 (08:18→21:14)
[2017-11-27] MEDS: FOLIC ACID 1 MG TAB PO (08:18)
[2017-11-27] MEDS: THIAMINE 100 MG TAB PO (08:18)
[2017-11-27] MEDS: MULTIVITAMINS/MINERALS THERAP 1 TAB PO (08:18)
[2017-11-27] MEDS: PERCOCET 5MG/325MG TAB PO (21:13)
[2017-11-27] MEDS: ENOXAPARIN 40 MG/0.4 ML SYRINGE (J1650) SC (21:14)
[2017-11-28] MEDS: PERCOCET 5MG/325MG TAB PO ×2 (03:27→11:03)
[2017-11-28] MEDS: IMIPENEM/CILASTATIN 500 MG in D5W MINI-BAG PLUS 100 ML IV (05:29)
[2017-11-28] MEDS: OXAZEPAM 10 MG CAP PO (05:29)
[2017-11-28 06:19] LABS: BASO # 0.1 10^3/uL (0.0-0.2); BASO % 0.8 % (0.0-1.0); EOS # 0.6 10^3/uL (0.0-0.50); EOS % 7.1 % (0.0-3.0); HEMATOCRIT 38.5 % (42.0-52.0); IMMATURE GRANULOCYTE % 0.3 % (0-0); LYMPH # 3.3 10^3/uL (1.5-6.5); LYMPH % 42.2 % (24.0-44.0); MEAN CORPUSCULAR HEMOGLOBIN 32.1 pg (27.0-33.0); MEAN CORPUSCULAR HGB CONC 33.8 g/dl (32.0-36.5); MEAN CORPUSCULAR VOLUME 95.1 fl (80.0-96.0); MONO # 0.6 10^3/uL (0.0-0.8); NEUTROPHILS # 3.4 10^3/uL (1.8-7.7); NEUTROPHILS % 42.6 % (36.0-66.0); PLATELET COUNT, AUTOMATED 221 10^3/uL (150-450); RED BLOOD COUNT 4.05 10^6/uL (4.30-6.10); RED CELL DISTRIBUTION WIDTH 12.1 % (11.5-14.5); WHITE BLOOD COUNT 7.9 10^3/uL (4.0-10.0)
[2017-11-28 06:39] LABS: ALBUMIN 3.5 GM/DL (3.2-5.2); ALBUMIN/GLOBULIN RATIO 1.03 (1.00-1.93); ALKALINE PHOSPHATASE 55 U/L (45-117); ALT/SGPT 20 U/L (12-78); ANION GAP 7 MEQ/L (8-16); AST/SGOT 12 U/L (7-37); BILIRUBIN,TOTAL 0.3 MG/DL (0.2-1.0); BLOOD UREA NITROGEN 6 MG/DL (7-18); CALCIUM LEVEL 8.8 MG/DL (8.5-10.1); CARBON DIOXIDE LEVEL 26 MEQ/L (21-32); CHLORIDE LEVEL 106 MEQ/L (98-107); CREATININE FOR GFR 0.77 MG/DL (0.70-1.30); GLOMERULAR FILTRATION RATE > 60.0 (>60); GLUCOSE, FASTING 102 MG/DL (70-100); POTASSIUM SERUM 3.7 MEQ/L (3.5-5.1); SODIUM LEVEL 139 MEQ/L (136-145); TOTAL PROTEIN 6.9 GM/DL (6.4-8.2)
[2017-11-28] MEDS ORDERED: oxyCODONE 5MG TAB PO (07:45)
[2017-11-28] MEDS: THIAMINE 100 MG TAB PO (08:04)
[2017-11-28] MEDS: SENOKOT S TAB PO (08:04)
[2017-11-28] MEDS: MULTIVITAMINS/MINERALS THERAP 1 TAB PO (08:04)
[2017-11-28] MEDS: FOLIC ACID 1 MG TAB PO (08:05)
[2017-11-28] MEDS: PANTOPRAZOLE 40MG INJ (PROTONIX) (C9113) IV (08:05)
== END 2017-11-28 13:00 | disposition home or self-care (01) | DRG 282 ==
LOC: M MSPAV 11-26 14:55 → M ED 17:25 → M ED INP 21:22 → M ICU 23:13
DX: K85.21 Alcohol induced acute pancreatitis with uninfected necrosis (principal); I10 Essential (primary) hypertension; K21.9 Gastro-esophageal reflux disease without esophagitis; F17.210 Nicotine dependence, cigarettes, uncomplicated; F10.10 Alcohol abuse, uncomplicated; Z88.5 Allergy status to narcotic agent; K86.1 Other chronic pancreatitis

== ENCOUNTER 2017-12-18 21:03 | Observation (INO) | payer OTHER, MEDICAID ==
[2017-12-18] MEDS: NS 1,000 ML IV (21:54)
[2017-12-18] MEDS: ONDANSETRON 4MG/2ML VIAL (J2405) IV (21:54)
[2017-12-18] MEDS: MORPHINE 4 MG/ML 1ML VIAL (J2270) IV (21:54)
[2017-12-18 22:09] LABS: BASO # 0.1 10^3/uL (0.0-0.2); BASO % 0.4 % (0.0-1.0); EOS # 0.6 10^3/uL (0.0-0.50); EOS % 4.2 % (0.0-3.0); HEMATOCRIT 40.2 % (42.0-52.0); HEMOGLOBIN 13.5 g/dl (14.0-18.0); IMMATURE GRANULOCYTE % 0.4 % (0-3.0); LYMPH # 2.1 10^3/uL (1.5-6.5); LYMPH % 14.4 % (24.0-44.0); MEAN CORPUSCULAR HEMOGLOBIN 31.9 pg (27.0-33.0); MEAN CORPUSCULAR HGB CONC 33.6 g/dl (32.0-36.5); MONO # 1.1 10^3/uL (0.0-0.8); MONO % 7.5 % (0.0-5.0); NEUTROPHILS # 10.6 10^3/uL (1.8-7.7); NEUTROPHILS % 73.1 % (36.0-66.0); PLATELET COUNT, AUTOMATED 258 10^3/uL (150-450); RED BLOOD COUNT 4.23 10^6/uL (4.30-6.10); WHITE BLOOD COUNT 14.5 10^3/uL (4.0-10.0)
[2017-12-18 22:31] LABS: ALBUMIN 3.9 GM/DL (3.2-5.2); ALBUMIN/GLOBULIN RATIO 0.91 (1.00-1.93); ALKALINE PHOSPHATASE 136 U/L (45-117); ALT/SGPT 55 U/L (12-78); ANION GAP 6 MEQ/L (8-16); AST/SGOT 21 U/L (7-37); BILIRUBIN,DIRECT < 0.1 MG/DL (0.0-0.2); BILIRUBIN,TOTAL 0.3 MG/DL (0.2-1.0); BLOOD UREA NITROGEN 15 MG/DL (7-18); CALCIUM LEVEL 9.3 MG/DL (8.5-10.1); CARBON DIOXIDE LEVEL 27 MEQ/L (21-32); CHLORIDE LEVEL 104 MEQ/L (98-107); CREATININE FOR GFR 0.75 MG/DL (0.70-1.30); GLOMERULAR FILTRATION RATE > 60.0 (>60); GLUCOSE, FASTING 267 MG/DL (70-100); LIPASE 220 U/L (73-393); POTASSIUM SERUM 3.6 MEQ/L (3.5-5.1); SODIUM LEVEL 137 MEQ/L (136-145); TOTAL PROTEIN 8.2 GM/DL (6.4-8.2)
[2017-12-18] MEDS ORDERED: ISOVUE-370 76% 100ML VIAL (Q9967) As Ordered (22:39)
[2017-12-19] MEDS: MORPHINE 4 MG/ML 1ML VIAL (J2270) IV ×3 (00:14→08:05)
[2017-12-19] MEDS ORDERED: ONDANSETRON 4MG/2ML VIAL (J2405) IV (01:15)
[2017-12-19] MEDS: NS 1,000 ML IV ×2 (02:12→06:16)
[2017-12-19] MEDS: PERCOCET 5MG/325MG TAB PO ×3 (05:04→20:34)
[2017-12-19 06:30] LABS: HEMATOCRIT 37.7 % (42.0-52.0); HEMOGLOBIN 12.4 g/dl (14.0-18.0); MEAN CORPUSCULAR HEMOGLOBIN 31.2 pg (27.0-33.0); MEAN CORPUSCULAR HGB CONC 32.9 g/dl (32.0-36.5); MEAN CORPUSCULAR VOLUME 94.7 fl (80.0-96.0); PLATELET COUNT, AUTOMATED 231 10^3/uL (150-450); RED BLOOD COUNT 3.98 10^6/uL (4.30-6.10); WHITE BLOOD COUNT 12.4 10^3/uL (4.0-10.0)
[2017-12-19 06:42] LABS: ALBUMIN 3.6 GM/DL (3.2-5.2); ALBUMIN/GLOBULIN RATIO 1.24 (1.00-1.93); ALKALINE PHOSPHATASE 110 U/L (45-117); ALT/SGPT 42 U/L (12-78); ANION GAP 7 MEQ/L (8-16); AST/SGOT 11 U/L (7-37); BILIRUBIN,TOTAL 0.3 MG/DL (0.2-1.0); BLOOD UREA NITROGEN 11 MG/DL (7-18); CALCIUM LEVEL 8.4 MG/DL (8.5-10.1); CARBON DIOXIDE LEVEL 27 MEQ/L (21-32); CHLORIDE LEVEL 108 MEQ/L (98-107); CHOLESTEROL LEVEL 188 MG/DL (<200); CHOLESTEROL RISK RATIO 6.714 (<5); CREATININE FOR GFR 0.55 MG/DL (0.70-1.30); GLOMERULAR FILTRATION RATE > 60.0 (>60); GLUCOSE, FASTING 84 MG/DL (70-100); HDL CHOLESTEROL 28 MG/DL (>40); LDL CHOLESTEROL 81.8 MG/DL (<100); NON-HDL-C 160 MG/DL; POTASSIUM SERUM 3.5 MEQ/L (3.5-5.1); SODIUM LEVEL 142 MEQ/L (136-145); TOTAL PROTEIN 6.5 GM/DL (6.4-8.2); TRIGLYCERIDES LEVEL 391 MG/DL (<150)
[2017-12-19 06:43] LABS: ETHYL ALCOHOL (ETHANOL) < 0.003 % (0.000-0.010)
[2017-12-20] MEDS: PERCOCET 5MG/325MG TAB PO ×3 (02:14→13:54)
[2017-12-20 06:28] LABS: HEMATOCRIT 37.3 % (42.0-52.0); HEMOGLOBIN 12.5 g/dl (14.0-18.0); MEAN CORPUSCULAR HEMOGLOBIN 31.3 pg (27.0-33.0); MEAN CORPUSCULAR HGB CONC 33.5 g/dl (32.0-36.5); MEAN CORPUSCULAR VOLUME 93.5 fl (80.0-96.0); PLATELET COUNT, AUTOMATED 221 10^3/uL (150-450); RED BLOOD COUNT 3.99 10^6/uL (4.30-6.10); RED CELL DISTRIBUTION WIDTH 11.6 % (11.5-14.5); WHITE BLOOD COUNT 8.8 10^3/uL (4.0-10.0)
[2017-12-20 06:34] LABS: ANION GAP 7 MEQ/L (8-16); BLOOD UREA NITROGEN 6 MG/DL (7-18); CALCIUM LEVEL 9.5 MG/DL (8.5-10.1); CARBON DIOXIDE LEVEL 28 MEQ/L (21-32); CHLORIDE LEVEL 105 MEQ/L (98-107); CREATININE FOR GFR 0.56 MG/DL (0.70-1.30); GLOMERULAR FILTRATION RATE > 60.0 (>60); GLUCOSE, FASTING 109 MG/DL (70-100); MAGNESIUM LEVEL 2.2 MG/DL (1.8-2.4); POTASSIUM SERUM 3.2 MEQ/L (3.5-5.1); SODIUM LEVEL 140 MEQ/L (136-145)
[2017-12-20] MEDS: POTASSIUM CHLORIDE 10 MEQ SR TABLET PO (08:15)
[2017-12-20 11:29] LABS: ESTIMATED AVERAGE GLUCOSE 140 MG/DL (60-110); HEMOGLOBIN A1c 6.5 %
[2017-12-23 00:06] LABS: ANTINUCLEAR ANTIBODIES DIRECT Negative (Negative); IgG SUBCLASS 4(ONLY) 36 mg/dL (2-96)
== END 2017-12-20 14:35 | disposition home or self-care (01) ==
LOC: M ED 23:54 → M ED INP 21:04 → M ED 23:54 → M MSPAV 12-19 02:04
DX: K85.90 Acute pancreatitis without necrosis or infection, unspecified (principal); K86.1 Other chronic pancreatitis; E78.1 Pure hyperglyceridemia; F17.210 Nicotine dependence, cigarettes, uncomplicated; E11.9 Type 2 diabetes mellitus without complications; K21.9 Gastro-esophageal reflux disease without esophagitis; Z86.59 Personal history of other mental and behavioral disorders; I10 Essential (primary) hypertension; Z80.0 Family history of malignant neoplasm of digestive organs; Z79.899 Other long term (current) drug therapy
CPT/HCPCS: J2270

== ENCOUNTER 2018-01-04 19:21 | Inpatient (IN) | payer OTHER, MEDICAID ==
[2018-01-04] MEDS: NS 1,000 ML IV ×2 (20:00→20:37)
[2018-01-04] MEDS: MORPHINE 2 MG/ML 1ML SYRINGE (J2270) IV ×4 (20:40→22:57)
[2018-01-04 20:41] LABS: BASO # 0.1 10^3/uL (0.0-0.2); BASO % 0.3 % (0.0-1.0); EOS # 0.3 10^3/uL (0.0-0.50); EOS % 1.6 % (0.0-3.0); HEMATOCRIT 44.4 % (42.0-52.0); HEMOGLOBIN 14.8 g/dl (14.0-18.0); IMMATURE GRANULOCYTE % 0.4 % (0-3.0); LYMPH # 1.9 10^3/uL (1.5-6.5); LYMPH % 11.1 % (24.0-44.0); MEAN CORPUSCULAR HEMOGLOBIN 31.4 pg (27.0-33.0); MEAN CORPUSCULAR HGB CONC 33.3 g/dl (32.0-36.5); MEAN CORPUSCULAR VOLUME 94.3 fl (80.0-96.0); MONO # 0.7 10^3/uL (0.0-0.8); MONO % 4.3 % (0.0-5.0); NEUTROPHILS # 13.9 10^3/uL (1.8-7.7); NEUTROPHILS % 82.3 % (36.0-66.0); PLATELET COUNT, AUTOMATED 256 10^3/uL (150-450); RED BLOOD COUNT 4.71 10^6/uL (4.30-6.10); RED CELL DISTRIBUTION WIDTH 12.2 % (11.5-14.5); WHITE BLOOD COUNT 16.8 10^3/uL (4.0-10.0)
[2018-01-04] MEDS: PANTOPRAZOLE 40MG INJ (PROTONIX) (C9113) IV (20:41)
[2018-01-04 21:00] LABS: LACTIC ACID SEPSIS PROTOCOL 1.2 MMOL/L (0.4-2.0)
[2018-01-04 21:02] LABS: ALBUMIN 4.6 GM/DL (3.2-5.2); ALBUMIN/GLOBULIN RATIO 1.44 (1.00-1.93); ALKALINE PHOSPHATASE 89 U/L (45-117); ALT/SGPT 42 U/L (12-78); AMYLASE 27 U/L (25-115); ANION GAP 7 MEQ/L (8-16); AST/SGOT 22 U/L (7-37); BILIRUBIN,DIRECT < 0.1 MG/DL (0.0-0.2); BILIRUBIN,TOTAL 0.4 MG/DL (0.2-1.0); BLOOD UREA NITROGEN 11 MG/DL (7-18); CALCIUM LEVEL 9.9 MG/DL (8.5-10.1); CARBON DIOXIDE LEVEL 28 MEQ/L (21-32); CHLORIDE LEVEL 105 MEQ/L (98-107); CPK CREATINE PHOSPHOKINASE 44 U/L (39-308); CREATININE FOR GFR 0.78 MG/DL (0.70-1.30); GLOMERULAR FILTRATION RATE > 60.0 (>60); GLUCOSE, FASTING 193 MG/DL (70-100); LIPASE 152 U/L (73-393); POTASSIUM SERUM 4.2 MEQ/L (3.5-5.1); SODIUM LEVEL 140 MEQ/L (136-145); TOTAL PROTEIN 7.8 GM/DL (6.4-8.2); TROPONIN I < 0.02 NG/ML (< 0.10)
[2018-01-04 21:03] LABS: MB/CK RELATIVE INDEX 2.27 (< OR =4)
[2018-01-04] MEDS ORDERED: ISOVUE-370 76% 100ML VIAL (Q9967) As Ordered (21:04)
[2018-01-04] MEDS: MEROPENEM INJ 1 GM in APPROPRIATE DILUENT 1 EA IV ×2 (23:01→23:45)
[2018-01-04] MEDS ORDERED: ONDANSETRON 4MG/2ML VIAL (J2405) IV (23:45)
[2018-01-04] MEDS: KCL 20MEQ IN 0.45NS 1000ML 1,000 ML IV (23:45)
[2018-01-05 00:17] LABS: ETHYL ALCOHOL (ETHANOL) < 0.003 % (0.000-0.010)
[2018-01-05] MEDS: KCL 20MEQ IN 0.45NS 1000ML 1,000 ML IV (00:30)
[2018-01-05] MEDS: MORPHINE 4 MG/ML 1ML VIAL (J2270) IV ×8 (01:49→21:43)
[2018-01-05] MEDS: NS 1,000 ML IV ×4 (02:03→22:16)
[2018-01-05] MEDS: MEROPENEM INJ 1 GM in APPROPRIATE DILUENT 1 EA IV ×3 (06:09→22:16)
[2018-01-05 06:16] LABS: HEMATOCRIT 41.4 % (42.0-52.0); HEMOGLOBIN 13.6 g/dl (14.0-18.0); MEAN CORPUSCULAR HEMOGLOBIN 30.9 pg (27.0-33.0); MEAN CORPUSCULAR HGB CONC 32.9 g/dl (32.0-36.5); MEAN CORPUSCULAR VOLUME 94.1 fl (80.0-96.0); PLATELET COUNT, AUTOMATED 233 10^3/uL (150-450); RED CELL DISTRIBUTION WIDTH 12.5 % (11.5-14.5); WHITE BLOOD COUNT 10.5 10^3/uL (4.0-10.0)
[2018-01-05 06:37] LABS: ALBUMIN/GLOBULIN RATIO 1.43 (1.00-1.93); ALKALINE PHOSPHATASE 76 U/L (45-117); ALT/SGPT 34 U/L (12-78); ANION GAP 6 MEQ/L (8-16); AST/SGOT 17 U/L (7-37); BILIRUBIN,TOTAL 0.3 MG/DL (0.2-1.0); BLOOD UREA NITROGEN 7 MG/DL (7-18); C REACTIVE PROTEIN QUANTITATIV < 0.30 MG/DL (0.00-0.30); CALCIUM LEVEL 9.7 MG/DL (8.5-10.1); CARBON DIOXIDE LEVEL 28 MEQ/L (21-32); CHLORIDE LEVEL 104 MEQ/L (98-107); CREATININE FOR GFR 0.62 MG/DL (0.70-1.30); GLOMERULAR FILTRATION RATE > 60.0 (>60); GLUCOSE, FASTING 121 MG/DL (70-100); MAGNESIUM LEVEL 1.8 MG/DL (1.8-2.4); POTASSIUM SERUM 3.6 MEQ/L (3.5-5.1); SODIUM LEVEL 138 MEQ/L (136-145); TOTAL PROTEIN 6.8 GM/DL (6.4-8.2)
[2018-01-05] MEDS: SENOKOT S TAB PO ×2 (08:30→21:44)
[2018-01-05] MEDS: HEPARIN SOD (PORCINE) 5000 UNITS/ML VIAL SC ×2 (08:30→21:43)
[2018-01-05] MEDS: PANTOPRAZOLE 40MG TAB (PROTONIX) PO (08:30)
[2018-01-05] MEDS: INFLUENZA QUADRIVALENT PF VACCINE 0.5ML SYRINGE (90686) IM (08:43)
[2018-01-06] MEDS: MORPHINE 4 MG/ML 1ML VIAL (J2270) IV ×10 (00:15→23:24)
[2018-01-06] MEDS: ACETAMINOPHEN TAB 650MG DOSE (2X325MG) PO (00:15)
[2018-01-06] MEDS: NS 1,000 ML IV ×4 (05:44→22:20)
[2018-01-06 05:56] LABS: HEMATOCRIT 40.1 % (42.0-52.0); HEMOGLOBIN 13.2 g/dl (14.0-18.0); MEAN CORPUSCULAR HEMOGLOBIN 30.8 pg (27.0-33.0); MEAN CORPUSCULAR HGB CONC 32.9 g/dl (32.0-36.5); MEAN CORPUSCULAR VOLUME 93.7 fl (80.0-96.0); PLATELET COUNT, AUTOMATED 191 10^3/uL (150-450); RED BLOOD COUNT 4.28 10^6/uL (4.30-6.10); RED CELL DISTRIBUTION WIDTH 12.1 % (11.5-14.5)
[2018-01-06] MEDS: MEROPENEM INJ 1 GM in APPROPRIATE DILUENT 1 EA IV ×3 (06:12→22:18)
[2018-01-06 06:26] LABS: ALBUMIN 3.7 GM/DL (3.2-5.2); ALBUMIN/GLOBULIN RATIO 1.37 (1.00-1.93); ALKALINE PHOSPHATASE 73 U/L (45-117); ALT/SGPT 29 U/L (12-78); ANION GAP 9 MEQ/L (8-16); AST/SGOT 17 U/L (7-37); BILIRUBIN,TOTAL 0.3 MG/DL (0.2-1.0); BLOOD UREA NITROGEN 5 MG/DL (7-18); C REACTIVE PROTEIN QUANTITATIV 0.71 MG/DL (0.00-0.30); CALCIUM LEVEL 8.9 MG/DL (8.5-10.1); CARBON DIOXIDE LEVEL 26 MEQ/L (21-32); CHLORIDE LEVEL 107 MEQ/L (98-107); CREATININE FOR GFR 0.55 MG/DL (0.70-1.30); GLOMERULAR FILTRATION RATE > 60.0 (>60); GLUCOSE, FASTING 93 MG/DL (70-100); MAGNESIUM LEVEL 1.8 MG/DL (1.8-2.4); POTASSIUM SERUM 3.5 MEQ/L (3.5-5.1); SODIUM LEVEL 142 MEQ/L (136-145); TOTAL PROTEIN 6.4 GM/DL (6.4-8.2)
[2018-01-06] MEDS: SENOKOT S TAB PO ×2 (08:22→21:02)
[2018-01-06] MEDS: PANTOPRAZOLE 40MG TAB (PROTONIX) PO (08:22)
[2018-01-06] MEDS: HEPARIN SOD (PORCINE) 5000 UNITS/ML VIAL SC ×2 (08:22→21:01)
[2018-01-07] MEDS: MORPHINE 4 MG/ML 1ML VIAL (J2270) IV ×4 (01:28→08:57)
[2018-01-07 06:39] LABS: HEMOGLOBIN 12.9 g/dl (14.0-18.0); MEAN CORPUSCULAR HEMOGLOBIN 30.7 pg (27.0-33.0); MEAN CORPUSCULAR HGB CONC 33.1 g/dl (32.0-36.5); MEAN CORPUSCULAR VOLUME 92.9 fl (80.0-96.0); PLATELET COUNT, AUTOMATED 203 10^3/uL (150-450); WHITE BLOOD COUNT 7.2 10^3/uL (4.0-10.0)
[2018-01-07] MEDS: MEROPENEM INJ 1 GM in APPROPRIATE DILUENT 1 EA IV ×3 (06:54→22:20)
[2018-01-07 07:04] LABS: ALBUMIN 3.6 GM/DL (3.2-5.2); ALBUMIN/GLOBULIN RATIO 1.16 (1.00-1.93); ALKALINE PHOSPHATASE 73 U/L (45-117); ALT/SGPT 27 U/L (12-78); ANION GAP 6 MEQ/L (8-16); AST/SGOT 19 U/L (7-37); BILIRUBIN,TOTAL 0.3 MG/DL (0.2-1.0); BLOOD UREA NITROGEN 4 MG/DL (7-18); C REACTIVE PROTEIN QUANTITATIV 1.03 MG/DL (0.00-0.30); CALCIUM LEVEL 9.2 MG/DL (8.5-10.1); CARBON DIOXIDE LEVEL 28 MEQ/L (21-32); CHLORIDE LEVEL 106 MEQ/L (98-107); CREATININE FOR GFR 0.59 MG/DL (0.70-1.30); GLOMERULAR FILTRATION RATE > 60.0 (>60); GLUCOSE, FASTING 80 MG/DL (70-100); MAGNESIUM LEVEL 1.9 MG/DL (1.8-2.4); POTASSIUM SERUM 3.4 MEQ/L (3.5-5.1); SODIUM LEVEL 140 MEQ/L (136-145); TOTAL PROTEIN 6.7 GM/DL (6.4-8.2)
[2018-01-07] MEDS: SENOKOT S TAB PO ×2 (08:56→21:00)
[2018-01-07] MEDS: HEPARIN SOD (PORCINE) 5000 UNITS/ML VIAL SC ×2 (08:57→21:00)
[2018-01-07] MEDS: PANTOPRAZOLE 40MG TAB (PROTONIX) PO (08:57)
[2018-01-07] MEDS: NS 1,000 ML IV ×3 (11:27→20:40)
[2018-01-07] MEDS: PERCOCET 5MG/325MG TAB PO ×3 (11:27→22:22)
[2018-01-07] MEDS: POTASSIUM CHLORIDE 10 MEQ SR TABLET PO (17:29)
[2018-01-08] MEDS: NS 1,000 ML IV (02:53)
[2018-01-08] MEDS: PERCOCET 5MG/325MG TAB PO ×4 (02:54→20:44)
[2018-01-08] MEDS: MEROPENEM INJ 1 GM in APPROPRIATE DILUENT 1 EA IV ×3 (06:01→22:48)
[2018-01-08 06:11] LABS: HEMATOCRIT 37.7 % (42.0-52.0); HEMOGLOBIN 12.8 g/dl (14.0-18.0); MEAN CORPUSCULAR VOLUME 91.3 fl (80.0-96.0); PLATELET COUNT, AUTOMATED 195 10^3/uL (150-450); RED BLOOD COUNT 4.13 10^6/uL (4.30-6.10); RED CELL DISTRIBUTION WIDTH 12.2 % (11.5-14.5); WHITE BLOOD COUNT 7.7 10^3/uL (4.0-10.0)
[2018-01-08 06:40] LABS: ALBUMIN 3.5 GM/DL (3.2-5.2); ALBUMIN/GLOBULIN RATIO 1.09 (1.00-1.93); ALKALINE PHOSPHATASE 74 U/L (45-117); ALT/SGPT 27 U/L (12-78); ANION GAP 8 MEQ/L (8-16); AST/SGOT 22 U/L (7-37); BILIRUBIN,TOTAL 0.2 MG/DL (0.2-1.0); BLOOD UREA NITROGEN 4 MG/DL (7-18); C REACTIVE PROTEIN QUANTITATIV 0.64 MG/DL (0.00-0.30); CARBON DIOXIDE LEVEL 25 MEQ/L (21-32); CHLORIDE LEVEL 108 MEQ/L (98-107); CREATININE FOR GFR 0.63 MG/DL (0.70-1.30); GLOMERULAR FILTRATION RATE > 60.0 (>60); GLUCOSE, FASTING 96 MG/DL (70-100); MAGNESIUM LEVEL 1.9 MG/DL (1.8-2.4); POTASSIUM SERUM 3.4 MEQ/L (3.5-5.1); SODIUM LEVEL 141 MEQ/L (136-145); TOTAL PROTEIN 6.7 GM/DL (6.4-8.2)
[2018-01-08] MEDS: HEPARIN SOD (PORCINE) 5000 UNITS/ML VIAL SC ×2 (08:57→20:44)
[2018-01-08] MEDS: PANTOPRAZOLE 40MG TAB (PROTONIX) PO (08:57)
[2018-01-08] MEDS: SENOKOT S TAB PO ×2 (08:58→20:44)
[2018-01-08] MEDS: POTASSIUM CHLORIDE 10 MEQ SR TABLET PO (14:44)
[2018-01-08] MEDS: LISINOPRIL 10 MG TAB PO (14:45)
[2018-01-09] MEDS: PERCOCET 5MG/325MG TAB PO ×2 (02:05→08:13)
[2018-01-09] MEDS: MEROPENEM INJ 1 GM in APPROPRIATE DILUENT 1 EA IV (06:00)
[2018-01-09 06:01] LABS: HEMATOCRIT 40.7 % (42.0-52.0); HEMOGLOBIN 13.7 g/dl (14.0-18.0); MEAN CORPUSCULAR HEMOGLOBIN 30.9 pg (27.0-33.0); MEAN CORPUSCULAR HGB CONC 33.7 g/dl (32.0-36.5); MEAN CORPUSCULAR VOLUME 91.9 fl (80.0-96.0); PLATELET COUNT, AUTOMATED 211 10^3/uL (150-450); RED BLOOD COUNT 4.43 10^6/uL (4.30-6.10); RED CELL DISTRIBUTION WIDTH 12.3 % (11.5-14.5); WHITE BLOOD COUNT 10.8 10^3/uL (4.0-10.0)
[2018-01-09 06:27] LABS: ALBUMIN 3.8 GM/DL (3.2-5.2); ALBUMIN/GLOBULIN RATIO 1.09 (1.00-1.93); ALKALINE PHOSPHATASE 81 U/L (45-117); ALT/SGPT 32 U/L (12-78); ANION GAP 7 MEQ/L (8-16); AST/SGOT 22 U/L (7-37); BILIRUBIN,TOTAL 0.2 MG/DL (0.2-1.0); BLOOD UREA NITROGEN 7 MG/DL (7-18); CALCIUM LEVEL 9.3 MG/DL (8.5-10.1); CARBON DIOXIDE LEVEL 28 MEQ/L (21-32); CHLORIDE LEVEL 105 MEQ/L (98-107); CREATININE FOR GFR 0.75 MG/DL (0.70-1.30); GLOMERULAR FILTRATION RATE > 60.0 (>60); GLUCOSE, FASTING 117 MG/DL (70-100); MAGNESIUM LEVEL 2.1 MG/DL (1.8-2.4); SODIUM LEVEL 140 MEQ/L (136-145); TOTAL PROTEIN 7.3 GM/DL (6.4-8.2)
[2018-01-09] MEDS: PANTOPRAZOLE 40MG TAB (PROTONIX) PO (08:05)
[2018-01-09] MEDS: SENOKOT S TAB PO (08:05)
[2018-01-09] MEDS: HEPARIN SOD (PORCINE) 5000 UNITS/ML VIAL SC (08:06)
[2018-01-09] MEDS: LISINOPRIL 10 MG TAB PO (08:06)
== END 2018-01-09 12:59 | disposition home or self-care (01) | DRG 282 ==
LOC: M MSPAV 01-05 00:44 → M ED 19:21 → M ED INP 23:34
DX: K85.20 Alcohol induced acute pancreatitis without necrosis or infection (principal); I10 Essential (primary) hypertension; K21.9 Gastro-esophageal reflux disease without esophagitis; F17.210 Nicotine dependence, cigarettes, uncomplicated

== ENCOUNTER 2018-06-26 10:05 | Day surgery (SDC) | payer OTHER ==
[2018-06-26] MEDS ORDERED: NS 1,000 ML IV (10:15)
[2018-06-26] MEDS ORDERED: LIDOCAINE 2% INJ 100 MG/5 ML SDV (FOR ANES.) As Ordered (10:44)
[2018-06-26] MEDS ORDERED: PROPOFOL 200 MG/20 ML VIAL As Ordered ×2 (10:44)
[2018-06-26] MEDS ORDERED: fentaNYL 100 MCG/2 ML INJECTION (J3010) As Ordered (10:47)
== END 2018-06-26 11:46 | disposition home or self-care (01) ==
LOC: M OPP 10:05
DX: R10.13 Epigastric pain (principal); R12 Heartburn; K21.0 Gastro-esophageal reflux disease with esophagitis; K29.70 Gastritis, unspecified, without bleeding; I10 Essential (primary) hypertension; E78.5 Hyperlipidemia, unspecified; K85.90 Acute pancreatitis without necrosis or infection, unspecified; Z87.828 Personal history of other (healed) physical injury and trauma; G43.909 Migraine, unspecified, not intractable, without status migrainosus; R06.83 Snoring; F17.210 Nicotine dependence, cigarettes, uncomplicated; Z79.899 Other long term (current) drug therapy; Z80.8 Family history of malignant neoplasm of other organs or systems; Z80.1 Family history of malignant neoplasm of trachea, bronchus and lung; Z80.0 Family history of malignant neoplasm of digestive organs; Z80.49 Family history of malignant neoplasm of other genital organs
CPT/HCPCS: 43239

== ENCOUNTER 2018-11-22 18:36 | Emergency (ER) | payer OTHER, SELFPAY ==
[~2018-11-22] VITALS: Ht 182.9 cm; Wt 90.9 kg
[2018-11-22 18:36] VITALS: BP 140/82
[~2018-11-22 18:36] MED LIST changes: +ACET-683 PO; -AMLO10TA2 PO; +AMLO10TA5 PO; +ATOR1TAB21 PO; +Acetaminophen Tab PO; +CLEO300C2 PO; +FOLI1TAB11 PO; -FOLI1TAB4 PO; -GEMF600T PO; +GEMF600T5 PO; +HYDR-3713 PO; +KETO10TAB PO; +LISI10TA4 PO; +LOVA1CAP17 PO; -NICO21DI5 TD; +NICO21DI6 TD; +OMEG100011 PO; +OXYCO5TA PO; +PANT20TA2 PO; +PANT40TA3 PO; +PRAV10TA4 PO; +TYLE500T78 PO; +VITMTA PO; +ZOFR4TAB16 PO
[2018-11-22] MEDS ORDERED: KETO10TAB PO (19:25)
[2018-11-22] MEDS ORDERED: CLEO300C2 PO (19:25)
[2018-11-22] MEDS ORDERED: CLINDAMYCIN 150 MG CAP PO ONE (19:30)
[2018-11-22] MEDS ORDERED: LIDOCAINE VISCOUS 2% SOLN 15ML UDC MT ONE (19:30)
[2018-11-22] MEDS ORDERED: KETOROLAC TROMETHAMINE 10 MG TAB PO ONE (19:30)
== END 2018-11-22 19:37 | disposition home or self-care (01) ==
LOC: M ED 18:36
DX: K04.7 Periapical abscess without sinus (principal); L03.211 Cellulitis of face; F17.200 Nicotine dependence, unspecified, uncomplicated

== ENCOUNTER 2019-02-23 21:36 | Inpatient (IN) | payer MEDICAID, OTHER, SELFPAY ==
[~2019-02-23] VITALS: Ht 182.9 cm; Wt 70.8 kg
[~2019-02-23 21:36] MED LIST changes: +ASPI-1 PO; -ASPI325T PO; -MAGN1TAB25 PO; +MAGN1TAB26 PO
[2019-02-24] MEDS ORDERED: KETOROLAC 30 MG/ML VIAL (J1885) IV ONE
[2019-02-24] MEDS ORDERED: ONDANSETRON 4MG/2ML VIAL (J2405) IV ONE
[2019-02-24] MEDS ORDERED: ISOVUE-370 76% 100ML VIAL (Q9967) As Ordered ONE (00:10)
[2019-02-24 00:18] LABS: HEMATOCRIT 47.3 % (42.0-52.0); HEMOGLOBIN 16.2 g/dl (13.5-17.5); MEAN CORPUSCULAR HEMOGLOBIN 31.4 pg (27.0-33.0); MEAN CORPUSCULAR HGB CONC 34.2 g/dl (32.0-36.5); MEAN CORPUSCULAR VOLUME 91.7 fl (80.0-96.0); PLATELET COUNT, AUTOMATED 340 10^3/uL (150-450); RED BLOOD COUNT 5.16 10^6/uL (4.30-6.10); WHITE BLOOD COUNT 18.8 10^3/uL (4.0-10.0)
[2019-02-24 00:42] LABS: ATYPICAL LYMPH 3 % (0-5); LYMPHOCYTES 33 % (16-52); MONOCYTES 7 % (0-8); NEUTROPHILS 57 % (35-75); PLATELET ESTIMATE NORMAL (NORMAL)
[2019-02-24 00:43] LABS: SMUDGE CELLS 1+
--- NOTE | 2019-02-24 01:20 | REP ---
Clinical: Lower chest and abdominal pain . Comparison: 11/06/2017 . Technique: PA and lateral. Findings: The mediastinum and cardiac silhouette are normal. The lung rainey are clear and without acute consolidation, effusion, or pneumothorax. The skeletal structures are intact and normal. Impression: 1. No acute cardiopulmonary process. Electronically Signed by Andrez Galdamez MD 02/24/2019 01:12 A
[2019-02-24 01:22] LABS: ALBUMIN 4.2 GM/DL (3.2-5.2); ALT/SGPT 19 U/L (12-78); BILIRUBIN,DIRECT < 0.1 MG/DL (0.0-0.2); BILIRUBIN,TOTAL 0.5 MG/DL (0.2-1.0); BLOOD UREA NITROGEN 17 MG/DL (7-18); CALCIUM LEVEL 14.1 MG/DL (8.5-10.1); CARBON DIOXIDE LEVEL 21 MEQ/L (21-32); CHLORIDE LEVEL 87 MEQ/L (98-107); CK-MB VALUE MASS < 1.0 NG/ML (<3.6); CPK CREATINE PHOSPHOKINASE 36 U/L (39-308); CREATININE FOR GFR 0.89 MG/DL (0.70-1.30); GLOMERULAR FILTRATION RATE > 60.0 (>60); GLUCOSE, FASTING 427 MG/DL (70-100); LIPASE 87 U/L (73-393); MB/CK RELATIVE INDEX 2.78 (< OR =4); POTASSIUM SERUM 4.7 MEQ/L (3.5-5.1); SODIUM LEVEL 126 MEQ/L (136-145); TROPONIN I < 0.02 NG/ML (< 0.10)
[2019-02-24] MEDS ORDERED: MORPHINE 4 MG/ML 1ML VIAL/SYRINGE (J2270) IV ONE ×3 (01:45→06:30)
[2019-02-24 02:02] LABS: HEMOGLOBIN A1c 14.5 %
--- NOTE | 2019-02-24 02:27 | REPVR ---
EXAM: CT Abdomen and Pelvis With Contrast EXAM DATE/TIME: 02/23/2019 11:46 PM CLINICAL HISTORY: 28 years old, male; Abdominal pain; Localized; Upper; Additional info: Upper abd pain TECHNIQUE: Imaging protocol: Axial computed tomography images of the abdomen and pelvis with intravenous contrast. Coronal and sagittal reformatted images were created and reviewed. Radiation optimization: All CT scans at this facility use at least one of these dose optimization techniques: automated exposure control; mA and/or kV adjustment per patient size (includes targeted exams where dose is matched to clinical indication); or iterative reconstruction. Contrast material: ISO; Contrast volume: 100 ml; Contrast route: AC; COMPARISON: CT ABD/PEL W/IV CONTRAST ONLY 01/04/2018 9:10 PM FINDINGS: Lungs: Mild dependent atelectasis at the right base. ABDOMEN: Liver: Hepatomegaly and steatosis. Gallbladder and bile ducts: Normal. No calcified stones. No ductal dilation. Pancreas: Previously seen acute pancreatitis with pancreatic necrosis appears to have resolved although minimal stranding of the peripancreatic fat is noted. This may represent residual changes or possibly acute pancreatitis recurrence. Correlate with lipase levels. Spleen: Normal. No splenomegaly. Adrenals: Normal. No mass. Kidneys and ureters: Normal. No hydronephrosis. Stomach and bowel: Normal. No obstruction. No mucosal thickening. Appendix: No evidence of appendicitis. PELVIS: Bladder: Distended urinary bladder. Reproductive: Unremarkable as visualized. ABDOMEN and PELVIS: Intraperitoneal space: Normal. No free air. No significant fluid collection. Bones/joints: No acute fracture. No dislocation. Soft tissues: Unremarkable. 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 Lymph nodes: Multiple subcentimeter nonspecific lymph nodes along the celiac axis and martine hepatis. Mild nonspecific retroperitoneal adenopathy. IMPRESSION: Previously seen acute pancreatitis with pancreatic necrosis appears to have resolved although minimal stranding of the peripancreatic fat is noted. This may represent residual changes or possibly acute pancreatitis recurrence. Correlate with lipase levels. Electronically signed by: Jorge Oh On 02/24/2019 02:26:26 AM
[2019-02-24] MEDS ORDERED: NS 1,000 ML IV ONE ×4 (02:30→04:00)
[2019-02-24] MEDS ORDERED: FAMO20TA4 PO (02:55)
[2019-02-24] MEDS ORDERED: EXCETAB33 PO (02:55)
[2019-02-24 03:22] LABS: OSMOLALITY SERUM 310 MOSM/KG (275-295)
[2019-02-24] MEDS ORDERED: ONDANSETRON 4MG/2ML VIAL (J2405) IV PRN (03:30)
[2019-02-24] MEDS ORDERED: PANTOPRAZOLE 40MG INJ (PROTONIX) (C9113) IV ONE (03:30)
[2019-02-24 03:35] LABS: ACETONE/KETONE > 46.00 MG/DL (<2.81); AMYLASE 14 U/L (25-115); BLOOD UREA NITROGEN 16 MG/DL (7-18); CALCIUM LEVEL 13.3 MG/DL (8.5-10.1); CARBON DIOXIDE LEVEL 23 MEQ/L (21-32); CHLORIDE LEVEL 91 MEQ/L (98-107); CREATININE FOR GFR 0.91 MG/DL (0.70-1.30); GLOMERULAR FILTRATION RATE > 60.0 (>60); GLUCOSE, FASTING 315 MG/DL (70-100); MAGNESIUM LEVEL 1.8 MG/DL (1.8-2.4); PHOSPHORUS LEVEL 3.2 MG/DL (2.5-4.9); POTASSIUM SERUM 4.4 MEQ/L (3.5-5.1); SODIUM LEVEL 131 MEQ/L (136-145)
[2019-02-24 03:35] LABS: VENOUS BASE EXCESS -2.5 (-2.0-2.0); VENOUS HCO3 23.2 MEQ/L (23.0-27.0); VENOUS O2 SATURATION 83.1 % (60.0-80.0); VENOUS PARTIAL PRESSURE CO2 43.2 mmHg (38.0-50.0); VENOUS PARTIAL PRESSURE O2 48.7 mmHg (30.0-50.0); VENOUS PH 7.347 UNITS (7.330-7.430); VENOUS STANDARD HCO3 22.1 MEQ/L; VENOUS TOTAL CO2 24.5 MEQ/L (24.0-28.0)
[2019-02-24] MEDS ORDERED: LEVEMIR (INSULIN DETEMIR) 1 UNITS/0.01ML SC ONE (03:45)
[2019-02-24] MEDS ORDERED: HumuLIN R (REGULAR) INSULIN (NovoLIN R) **100U/ML** PER UNIT IV SCH (04:00)
[2019-02-24] MEDS ORDERED: NS 1,000 ML IV SCH (04:00)
[2019-02-24] MEDS: INSULIN HUMAN REGULAR 100 UNITS in NS 99 ML IV SCH ×2 (04:15→04:50)
--- NOTE | 2019-02-24 05:06 | HPEPDOC ---
General Date of Admission February 24, 2019 at 03:46 Chief Complaint The patient is a 28-year-old male admitted with a reason for visit of Abdominal Pain. Source: Patient History of Present Illness 28 y/o M with h/o recurrent pancreatitis came to ER for c/o worsening epigastric area abdominal pain, radiating to back, nausea, vomiting, decreased appetite, weakness, light headedness, 60 pound weight loss over the course of 1 month, no specific aggravating or relieving factor. In ER pt was found with vials of BP 129/80, HR 94, RR 18, TEmp 96.9, RR 18, SpO2-100% on RA; CT abdomen did not show any acute pathology, pt was given iv morphine 4 mg, iv toradol, zofran, NS bolus 3 liters in ER; pt was found with high blood glucose with anion gap. Hospitalist service was consulted to admit the pt for further management. Pt was seen and examined at bedside in ER. Pt c/o epigastric area abdominal pain and nausea. Home Medications Scheduled Famotidine (Famotidine) 20 Mg Tablet, 20 MG PO BID, (Reported) Scheduled PRN Aspirin/Acetaminophen/Caffeine (Excedrin Migraine Caplet) 1 Each Tablet, 2 TAB PO BID PRN for MIGRAINE, (Reported) Allergies Coded Allergies: No Known Allergies (Unverified , 11/07/17) Past Medical History Medical History GERD, h/o migraine recurrent pancreatitis related to alcohol abuse, more than 10 episodes, pt stated that he did not take alcohol in last 6 months Nicotine dependence Surgical History EGD Family History reviewed, non contributory Mother colon cancer Social History * Smoker: current smoker Alcohol: Denies h/o cocaine snorting, h/o marijuana smoking, lives with parents A-FIB/CHADSVASC A-FIB History Current/History of A-Fib/PAF?: No Current Oral Anticoagulant The: No Review of Systems Other systems 10 points review of system was performed and it was negative except as per HPI Physical Examination General Exam: Positive: Alert, Cooperative, No Acute Distress Eye Exam: Positive: PERRLA, Conjunctiva & lids normal ENT Exam: Positive: Atraumatic, Mucous membr. moist/pink Neck Exam: Positive: Supple Chest Exam: Positive: Clear to auscultation, Normal air movement Heart Exam: Positive: Rate Normal, Normal S1, Normal S2 Abdomen Exam: Positive: Normal bowel sounds, Soft Extremity Exam: Positive: Normal pulses Skin Exam: Positive: Nl turgor and temperature Neuro Exam: Positive: Normal Speech, Strength at 5/5 X4 ext, Cranial Nerves 3- 12 NL Psych Exam: Positive: Mental status NL, Mood NL, Oriented x 3 Vital Signs Vital Signs Date Time Temp Pulse Resp B/P (MAP) Pulse Ox O2 Delivery O2 Flow Rate FiO2 02/24/19 04:36 134/79 (97) 02/24/19 04:15 84 18 100 Room Air 02/23/19 21:37 96.9 Laboratory Data Labs 24H Laboratory Tests 2 02/24/19 00:08: Nucleated Red Blood Cells % (auto) 0.0, Neutrophils 57, Lymphocytes (Manual) 33, Monocytes (Manual) 7, Atypical Lymphocytes 3, Smudge Cells 1+, Platelet Estimate NORMAL, Red Blood Cell Morphology NORMAL, Urine Color STRAW, Urine Appearance CLEAR, Urine pH 5.0, Urine Specific [place] 1.029, Urine Protein NEGATIVE, Urine Glucose (UA) 3+H, Urine Ketones 2+H, Urine Blood NEGATIVE, Urine Nitrite NEGATIVE, Urine Bilirubin NEGATIVE, Urine Urobilinogen 0.2, Urine Leukocyte Esterase NEGATIVE, Urine WBC (Auto) 1, Urine RBC (Auto) 2, Urine Hyaline Casts (Auto) 0, Urine Bacteria (Auto) NEGATIVE, Urine Squamous Epithelial Cells 0, Urine Mucus (Auto) SMALL, Urine Sperm (Auto) , Anion Gap 18H, Glomerular Filtration Rate > 60.0, Estimated Mean Plasma Glucose 369H, Hemoglobin A1c 14.5, Calcium Level 14.1*H, Aspartate Amino Transf (AST/SGOT) 11, Alanine Aminotransferase (ALT/SGPT) 19, Alkaline Phosphatase 114, Total Bilirubin 0.5, Direct Bilirubin < 0.1, Total Creatine Kinase 36L, Creatine Kinase MB < 1.0, Creatine Kinase MB Relative Index 2.78, Troponin I < 0.02, Total Protein 8.0, Albumin 4.2, Albumin/Globulin Ratio 1.11, Lipase 87 02/24/19 01:47: Lactic Acid Level < 0.4L 02/24/19 02:45: Anion Gap 17H, Glomerular Filtration Rate > 60.0, Calcium Level 13.3H, Osmolality 310H, Blood Urea Nitrogen 16, Creatinine 0.91, Sodium Level 131L, Potassium Level 4.4, Chloride Level 91L, Carbon Dioxide Level 23, Phosphorus Level 3.2, Magnesium Level 1.8, Amylase Level 14L, B-Hydroxybutyrate > 46.00H 02/24/19 03:21: Blood Gas Bicarbonate Standard 22.1, Venous Blood pH 7.347, Venous Blood Partial Pressure CO2 43.2, Venous Blood Partial Pressure O2 48.7, Venous Blood Total Carbon Dioxide 24.5, Venous Blood HCO3 23.2, Venous Blood Oxygen Saturation 83.1H, Venous Blood Base Excess -2.5L 02/24/19 04:38: Bedside Glucose (Misc Panel) 241H CBC/BMP Laboratory Tests 02/24/19 00:08 Red Blood Count 5.16, Mean Corpuscular Volume 91.7, Mean Corpuscular Hemoglobin 31.4, Mean Corpuscular Hemoglobin Concent 34.2, Red Cell Distribution Width 12.3 02/24/19 02:45 Calcium Level 13.3 H Assessment/Plan 28 y/o M with h/o recurrent pancreatitis related to alcohol abuse c/o abdominal pain, generalized weakness, nausea, vomiting, decreased appetite, weight loss, found to have elevated HbA1c, high blood glucose, anion gap. Labs and imaging studies reviewed. HbA1c- 14.5 Impression- suspected DKA There is no elevation of lipase CT abdomen reviewed. Problems (1) DKA (diabetic ketoacidoses) Status: Acute Problem Text: will start patient on insulin gtt, NS 250 ml/hr will f/u repeat BMP, NPO will switch to sc insulin when anion gap closes. will consider endocrinology consult (2) Uncontrolled diabetes mellitus Status: Acute Problem Text: newly diagnosed DM will start pt on insulin will consider endocrinology consult (3) Weight loss Status: Acute Problem Text: might be related to newly diagnosed DM on CBC - smudge cell seen will consider hematology referral (4) Hypercalcemia Status: Acute Problem Text: unclear etiology will continue ivf will f/u repeat labs Plan / VTE VTE Prophylaxis Ordered?: Yes CLEM WALLACE MD February 24, 2019 05:06
[2019-02-24] MEDS: INSULIN IV RATE CHANGE DOCUMENTATION ML/HR XX SCH ×2 (05:10→06:08)
[2019-02-24 05:17] VITALS: BP 133/75
[2019-02-24] MEDS: HEPARIN SOD (PORCINE) 5000 UNITS/ML VIAL SC SCH ×3 (05:41→22:09)
[2019-02-24 05:45] LABS: HEMATOCRIT 40.5 % (42.0-52.0); MEAN CORPUSCULAR HEMOGLOBIN 30.9 pg (27.0-33.0); MEAN CORPUSCULAR HGB CONC 32.8 g/dl (32.0-36.5); MEAN CORPUSCULAR VOLUME 94.2 fl (80.0-96.0); WHITE BLOOD COUNT 15.8 10^3/uL (4.0-10.0)
[2019-02-24 05:47] LABS: HEMOGLOBIN 13.3 g/dl (13.5-17.5)
[2019-02-24 05:48] LABS: PLATELET COUNT, AUTOMATED 197 10^3/uL (150-450)
[2019-02-24] MEDS ORDERED: HumaLOG INSULIN (NovoLOG) PER UNIT SC SCH ×3 (06:00→21:00)
[2019-02-24 06:01] LABS: BLOOD UREA NITROGEN 15 MG/DL (7-18); CALCIUM LEVEL 10.8 MG/DL (8.5-10.1); CARBON DIOXIDE LEVEL 23 MEQ/L (21-32); CHLORIDE LEVEL 101 MEQ/L (98-107); CREATININE FOR GFR 0.77 MG/DL (0.70-1.30); GLOMERULAR FILTRATION RATE > 60.0 (>60); GLUCOSE, FASTING 219 MG/DL (70-100); MAGNESIUM LEVEL 1.6 MG/DL (1.8-2.4); SODIUM LEVEL 137 MEQ/L (136-145)
[2019-02-24] MEDS ORDERED: LEVEMIR (INSULIN DETEMIR) 1 UNITS/0.01ML SC STA (06:20)
[2019-02-24] MEDS ORDERED: MAG SULF 1GM/100ML (MAG RUN) 1 GM in APPROPRIATE DILUENT 1 EA IV ONE ×2 (06:30→09:00)
[2019-02-24] MEDS ORDERED: GLUCOSE 4 GM CHEW TABLET PO PRN (06:30)
[2019-02-24] MEDS ORDERED: GLUCAGON FOR INJ 1 MG VIAL (J1610) SC PRN (06:30)
[2019-02-24] MEDS ORDERED: GI COCKTAIL 50ML BTL(HYOSCYAMINE/MAALOX/LIDOCAINE VISCOUS)(1:3:1) PO PRN (06:30)
[2019-02-24] MEDS ORDERED: DEXTROSE 50% 50 ML SYRINGE IV PRN (06:30)
[2019-02-24] MEDS: NS 1,000 ML IV SCH ×2 (06:37→18:11)
[2019-02-24 08:00] VITALS: BP 120/63
[2019-02-24] MEDS: PANTOPRAZOLE 40MG INJ (PROTONIX) (C9113) IV SCH (08:56)
--- NOTE | 2019-02-24 09:35 | REP ---
CT Head without contrast HISTORY: Possible malignancy COMPARISON: None There is no intraparenchymal hemorrhage, acute infarct, mass or midline shift. The ventricular system is normal in appearance. There is no extra cerebral collection. There is no fracture. The visualized sinuses are clear. IMPRESSION: There is no intracranial lesion. Electronically Signed by Beto Perrin MD 02/24/2019 09:26 A
[2019-02-24 10:08] LABS: LIPASE 71 U/L (73-393)
[2019-02-24] MEDS: MORPHINE 4 MG/ML 1ML VIAL/SYRINGE (J2270) IV PRN ×3 (10:10→22:07)
[2019-02-24 11:59] VITALS: BP 104/59
[2019-02-24] MEDS: EXCEDRIN MIGRAINE TABLET PO PRN (12:56)
[2019-02-24] MEDS: HumaLOG INSULIN (NovoLOG) PER UNIT SC SCH ×3 (12:57→22:09)
--- NOTE | 2019-02-24 13:51 | IPNPDOC ---
Text Note Date of Service The patient was seen on 02/24/19. NOTE Subjective: Patient is a 28-year-old male with a PMHx of Pancreatitis (~ 1 year ago 2/2 EtOH), Migraines presented to the emergency room with complaints of worsening abdominal pain. Patient also had very nonspecific symptoms including lightheadedness, some shortness of breath, left flank pain. Upon arrival to emergency room, patient was found to have an elevated glucose and suspected to have DKA. Patient has also received imaging in the emergency room which revealed mild peripancreatic fat stranding. Hospitalist service was called and patient was admitted to the ICU where he received insulin drip. Patient has been transitioned to subcutaneous insulin. Patient was seen and examined at the bedside. Patient reports that he is not expressing any epigastric pain, but he does report left flank pain. He denies a difficulty breathing. Denies chest pain, shortness breath or palpitations. Denies nausea, vomiting. Denies any discomfort with urination and reports a normal bowel movements. Of significance, patient has reported a 60 pound weight loss own approximately 2 months. Objective: Vitals (See below) General: Lying in bed, no acute distress, comfortable, AAOx3 HEENT: NC, AT CVS: RRR, +S1S2 Lungs: Fair air entry b/l, -w/r/r Abdomen: Soft, ND, NT Back: Patient does have tenderness on palpation of paraspinal muscle groups Extremities: - Edema, - Calf tenderness Assessment and plan: Elevated glucose - likely 2/2 DKA / New onset DM2 - Patient presented to the emergency room with complaint of abdominal pain - Emergency room, patient was found to have an elevated glucose and an elevated anion gap with metabolic acidosis - A1c noted to be 14.5 - s/p insulin drip; has been transitioned to subcutaneous insulin with Levemir 5 BID - We will continue to follow patient's glucose levels will likely require up titration of Levemir dosing - Patient's diet has been restarted; consistent carbohydrate Significant weight loss / Findings of Smudge cells - possibly 2/2 malignancy - Patient has reported weight loss, approximately 60 pounds in 2 months - CBC had revealed smudge cells, 1+ - Peripheral smear 02/24: Mild normocytic anemia. Mild leukocytosis; no abnormal immature leukocytes identified. Essentially normal platelet morphology. - CT head 02/24: There is no intracranial lesion. - CT chest 02/24: Official report pending - CT abdomen / pelvis (noted below) L flank pain - possibly 2/2 musculoskeletal etiology - Physical does reveal paraspinal muscle groups tenderness - Urinalysis appears clean - Lipase levels within normal limits - CT abdomen / pelvis 02/24: Previously seen acute pancreatitis with pancreatic necrosis appears to have resolved although minimal stranding of the peripancreatic fat is noted. This may represent residual changes or possibly acute pancreatitis recurrence. Correlate with lipase levels. - Will continue with pain control Hypercalcemia - Will check Vitamin D, PTH, PTH-rP - c/w IV fluid hydration s/p Pseudohyponatremia GI prophylaxis - c/w Protonix DVT prophylaxis - c/w Heparin VS,Fishbone, I+O VS, Fishbone, I+O Laboratory Tests 02/24/19 00:08 Red Blood Count 5.16, Mean Corpuscular Volume 91.7, Mean Corpuscular Hemoglobin 31.4, Mean Corpuscular Hemoglobin Concent 34.2, Red Cell Distribution Width 12.3 02/24/19 02:45 Calcium Level 13.3 H 02/24/19 05:33 Red Blood Count 4.30, Mean Corpuscular Volume 94.2, Mean Corpuscular Hemoglobin 30.9, Mean Corpuscular Hemoglobin Concent 32.8, Red Cell Distribution Width 12.4, Calcium Level 10.8 #H Vital Signs Date Time Temp Pulse Resp B/P (MAP) Pulse Ox O2 Delivery O2 Flow Rate FiO2 02/24/19 10:20 18 02/24/19 08:00 97.6 81 120/63 (82) 100 02/24/19 04:15 Room Air I&O- Last 24 Hours up to 6 AM 02/24/19 06:00 Intake Total 7000 ml Output Total 0 ml Balance 7000 ml LORETTA MATOS MD February 24, 2019 13:51
--- NOTE | 2019-02-24 14:55 | ECGEPIP ---
Stationary ECG Study [facility] - ED Test Date: 2019-02-24 Pat Name: ALLEGRA WEST Department: Room: [place] [address] Gender: M Senior Clinical Data Coordinator: OSORIO : 1990 Requested By: JESSIE HOLM PA-C Order Number: [id number] Reading MD: Trell De La Paz Measurements Intervals [place] Rate: 98 P: 33 WA: 130 QRS: 56 QRSD: 87 T: 35 QT: 343 QTc: 439 Interpretive Statements SINUS RHYTHM Nonspecific ST-T wave abnormalities Electronically Signed On 02-24-2019 14:54:44 EDT by Trell De La Paz
--- NOTE | 2019-02-24 15:24 | REP ---
CT CHEST WITHOUT IV CONTRAST: CT chest performed without IV contrast. Sagittal and coronal reconstruction images are performed. No infiltrate or suspicious nodular opacity is seen in either lung. There is mild discoid atelectasis in the left lung base. I do not see evidence of mediastinal or axillary adenopathy. There is no evidence of aneurysm of the thoracic aorta. The heart is normal in size. There is no pleural or pericardial effusion. The visualized upper abdominal structures appear grossly unremarkable. IMPRESSION: Mild discoid atelectasis left lung base. No other significant finding. Electronically Signed by Tim Marlow MD 02/26/2019 11:57 A
[2019-02-24 15:30] LABS: TOTAL PROTEIN 5.9 GM/DL (6.4-8.2)
[2019-02-24] MEDS: AMPICILLIN SOD/SULBACTAM SOD 3 GM in D5W MINI-BAG PLUS 100 ML IV SCH ×2 (15:30→22:08)
[2019-02-24 15:33] VITALS: BP 119/64
[2019-02-24 15:37] LABS: PTH INTACT 11.7 PG/ML (18.5-88.0); TOTAL 25(OH) VITAMIN D 10.5 NG/ML (30.0-100.0)
[2019-02-24 20:10] VITALS: BP 107/66
[2019-02-24] MEDS ORDERED: LEVEMIR (INSULIN DETEMIR) 1 UNITS/0.01ML SC SCH (21:00)
[2019-02-24] MEDS: CHLORHEXIDINE GLUCONATE 0.12 % 15ML UDC (PERIDEX ORAL RINSE) SSP SCH (22:08)
[2019-02-24] MEDS: LEVEMIR (INSULIN DETEMIR) 1 UNITS/0.01ML SC SCH (22:09)
[2019-02-25] MEDS: AMPICILLIN SOD/SULBACTAM SOD 3 GM in D5W MINI-BAG PLUS 100 ML IV SCH ×4 (02:22→20:59)
[2019-02-25] MEDS: NS 1,000 ML IV SCH ×3 (02:22→20:59)
[2019-02-25] MEDS: MORPHINE 4 MG/ML 1ML VIAL/SYRINGE (J2270) IV PRN ×3 (02:31→12:07)
[2019-02-25 04:00] VITALS: BP 95/55
[2019-02-25] MEDS: HEPARIN SOD (PORCINE) 5000 UNITS/ML VIAL SC SCH ×3 (05:20→20:58)
[2019-02-25 06:44] LABS: BASO % 0.2 % (0.0-1.0); EOS # 0.4 10^3/uL (0.0-0.50); EOS % 3.3 % (0.0-3.0); HEMATOCRIT 36.3 % (42.0-52.0); HEMOGLOBIN 12.1 g/dl (13.5-17.5); LYMPH # 4.4 10^3/uL (1.5-4.5); LYMPH % 39.4 % (24.0-44.0); MEAN CORPUSCULAR HEMOGLOBIN 31.1 pg (27.0-33.0); MEAN CORPUSCULAR HGB CONC 33.3 g/dl (32.0-36.5); MEAN CORPUSCULAR VOLUME 93.3 fl (80.0-96.0); MONO # 0.7 10^3/uL (0.0-0.8); NEUTROPHILS # 5.7 10^3/uL (1.8-7.7); NEUTROPHILS % 50.7 % (36.0-66.0); PLATELET COUNT, AUTOMATED 196 10^3/uL (150-450); RED BLOOD COUNT 3.89 10^6/uL (4.30-6.10); WHITE BLOOD COUNT 11.2 10^3/uL (4.0-10.0)
[2019-02-25 07:09] LABS: ALBUMIN 2.6 GM/DL (3.2-5.2); ALT/SGPT 16 U/L (12-78); BILIRUBIN,TOTAL 0.2 MG/DL (0.2-1.0); BLOOD UREA NITROGEN 8 MG/DL (7-18); CALCIUM LEVEL 6.9 MG/DL (8.5-10.1); CARBON DIOXIDE LEVEL 25 MEQ/L (21-32); CHLORIDE LEVEL 104 MEQ/L (98-107); CREATININE FOR GFR 0.45 MG/DL (0.70-1.30); GLOMERULAR FILTRATION RATE > 60.0 (>60); GLUCOSE, FASTING 139 MG/DL (70-100); MAGNESIUM LEVEL 1.6 MG/DL (1.8-2.4); POTASSIUM SERUM 3.3 MEQ/L (3.5-5.1); SODIUM LEVEL 136 MEQ/L (136-145); TOTAL PROTEIN 5.1 GM/DL (6.4-8.2)
[2019-02-25] MEDS ORDERED: MAG SULF 1GM/100ML (MAG RUN) 1 GM in APPROPRIATE DILUENT 1 EA IV ONE (08:00)
[2019-02-25 08:10] LABS: FREE T4 0.78 NG/DL (0.76-1.46)
[2019-02-25] MEDS: CHLORHEXIDINE GLUCONATE 0.12 % 15ML UDC (PERIDEX ORAL RINSE) SSP SCH ×4 (08:41→20:57)
[2019-02-25] MEDS: PANTOPRAZOLE 40MG INJ (PROTONIX) (C9113) IV SCH (08:41)
[2019-02-25] MEDS: EXCEDRIN MIGRAINE TABLET PO PRN (08:41)
[2019-02-25] MEDS: LEVEMIR (INSULIN DETEMIR) 1 UNITS/0.01ML SC SCH ×2 (08:42→20:57)
[2019-02-25] MEDS: HumaLOG INSULIN (NovoLOG) PER UNIT SC SCH ×4 (08:42→20:37)
[2019-02-25] MEDS ORDERED: POTASSIUM CHLORIDE 10 MEQ SR TABLET PO ONE (09:00)
--- NOTE | 2019-02-25 12:15 | IPNPDOC ---
Text Note Date of Service The patient was seen on 02/25/19. NOTE Subjective: Patient is a 28-year-old male with a PMHx of Pancreatitis (~ 1 year ago 2/2 EtOH), Migraines presented to the emergency room with complaints of worsening abdominal pain. Patient also had very nonspecific symptoms including lightheadedness, some shortness of breath, left flank pain. Upon arrival to emergency room, patient was found to have an elevated glucose and suspected to have DKA. Patient has also received imaging in the emergency room which revealed mild peripancreatic fat stranding. Hospitalist service was called and patient was admitted to the ICU where he received insulin drip. Patient has been transitioned to subcutaneous insulin. Patient was seen and examined at the bedside. Patient reports that his back pain is doing better, still requiring pain medications. Has not expense any nausea, vomiting, abdominal pain, constipation, diarrhea, or urinary discomfort. Patient denies chest pain, shortness of breath, palpations. Reports that his mouth still continues to have some drainage. Objective: Vitals (See below) General: Lying in bed, no acute distress, comfortable, AAOx3 HEENT: NC, AT CVS: RRR, +S1S2 Lungs: Fair air entry b/l, no auscultated wheezing, rhonchi or rales Abdomen: Soft without distention or tenderness Extremities: No appreciable LE edema, - Calf tenderness Assessment and plan: Elevated glucose - likely 2/2 DKA / New onset DM2 - Patient presented to the emergency room with complaint of abdominal pain - Emergency room, patient was found to have an elevated glucose and an elevated anion gap with metabolic acidosis - A1c noted to be 14.5 - s/p insulin drip - Patient's diet has been restarted; consistent carbohydrate - c/w Levemir 10 BID and ISS Leukocytosis - possibly 2/2 reactive etiology, possibly 2/2 oral infection - Patient has very poor dentition and several teeth are in different stages of decay - Hemodynamically stable and afebrile - Improving leukocytosis; No lactic acidosis - c/w Unasyn (Day #2) - Discussed with oral surgeon; will likely have outpatient follow up Significant weight loss / Findings of Smudge cells - possibly 2/2 malignancy - Patient has reported weight loss, approximately 60 pounds in 2 months - CBC had revealed smudge cells, 1+ - Peripheral smear 02/24: Mild normocytic anemia. Mild leukocytosis; no abnormal immature leukocytes identified. Essentially normal platelet morphology. - CT head 02/24: There is no intracranial lesion. - CT chest 02/24: Official report pending - CT abdomen / pelvis (noted below) L flank pain - possibly 2/2 musculoskeletal etiology - Physical does reveal paraspinal muscle groups tenderness - Urinalysis appears clean - Lipase levels within normal limits - CT abdomen / pelvis 02/24: Previously seen acute pancreatitis with pancreatic necrosis appears to have resolved although minimal stranding of the peripancreatic fat is noted. This may represent residual changes or possibly acute pancreatitis recurrence. Correlate with lipase levels. - Will continue with pain control Hypercalcemia - Vitamin D / PTH level suppressed - TSH noted - Will check Vitamin D (1,25-OH), PTHrP pending, SPEP/UPEP/Light chains pending - c/w IV fluid hydration s/p Pseudohyponatremia GI prophylaxis - c/w Protonix DVT prophylaxis - c/w Heparin Disposition: - Will try and taper down pain medications - Awaiting lab work to result Latonya MALONE, I+O VSLatonya I+O Laboratory Tests 02/25/19 06:20 Red Blood Count 3.89 L, Mean Corpuscular Volume 93.3, Mean Corpuscular Hemoglobin 31.1, Mean Corpuscular Hemoglobin Concent 33.3, Red Cell Distribution Width 12.3, Neutrophils (%) (Auto) 50.7, Lymphocytes (%) (Auto) 39.4, Monocytes (%) (Auto) 6.0 H, Eosinophils (%) (Auto) 3.3 H, Basophils (%) (Auto) 0.2, Neutrophils # (Auto) 5.7, Lymphocytes # (Auto) 4.4, Monocytes # (Auto) 0.7, Eosinophils # (Auto) 0.4, Basophils # (Auto) 0.0, Calcium Level 6.9 #L, Aspartate Amino Transf (AST/SGOT) 18, Alanine Aminotransferase (ALT/SGPT) 16, Alkaline Phosphatase 60, Total Bilirubin 0.2 #, Total Protein 5.1 #L, Albumin 2.6 #L Vital Signs Date Time Temp Pulse Resp B/P (MAP) Pulse Ox O2 Delivery O2 Flow Rate FiO2 02/25/19 12:07 16 02/25/19 04:00 98.0 72 95/55 (68 97 02/24/19 04:15 Room Air I&O- Last 24 Hours up to 6 AM 02/25/19 06:00 Intake Total 3270 ml Output Total 1700 ml Balance 1570 ml LORETTA MATOS MD February 25, 2019 12:15
[2019-02-25] MEDS ORDERED: MORPHINE 4 MG/ML 1ML VIAL/SYRINGE (J2270) IV PRN (12:30)
[2019-02-25 13:44] LABS: ALBUMIN 3.85 GM/DL (3.29-5.55); ALBUMIN % 65.2 % (55.8-66.1); ALPHA-1-GLOBULIN % 3.6 % (2.9-4.9); ALPHA-1-GLOBULINS 0.21 GM/DL (0.17-0.41); ALPHA-2-GLOBULINS 0.82 GM/DL (0.42-0.99); ALPHA-2-GLOBULINS % 13.9 % (7.1-11.8); BETA-1-GLOBULINS 0.29 GM/DL (0.28-0.60); BETA-1-GLOBULINS % 4.9 % (4.7-7.2); BETA-2-GLOBULINS 0.28 GM/DL (0.19-0.55); BETA-2-GLOBULINS % 4.8 % (3.2-6.5); GAMMA GLOBULIN % 7.6 % (11.1-18.8); GAMMA GLOBULINS 0.45 GM/DL (0.65-1.58)
[2019-02-25 14:00] VITALS: BP 127/72
[2019-02-25 22:00] VITALS: BP 113/68
[2019-02-26] MEDS: AMPICILLIN SOD/SULBACTAM SOD 3 GM in D5W MINI-BAG PLUS 100 ML IV SCH ×4 (03:42→21:32)
[2019-02-26 06:00] VITALS: BP 112/72
[2019-02-26] MEDS: HEPARIN SOD (PORCINE) 5000 UNITS/ML VIAL SC SCH ×3 (06:05→21:31)
[2019-02-26 07:07] LABS: BASO % 0.3 % (0.0-1.0); EOS # 0.3 10^3/uL (0.0-0.50); EOS % 3.5 % (0.0-3.0); HEMATOCRIT 33.1 % (42.0-52.0); HEMOGLOBIN 11.4 g/dl (13.5-17.5); LYMPH # 3.3 10^3/uL (1.5-4.5); LYMPH % 41.8 % (24.0-44.0); MEAN CORPUSCULAR HEMOGLOBIN 32.7 pg (27.0-33.0); MEAN CORPUSCULAR HGB CONC 34.4 g/dl (32.0-36.5); MEAN CORPUSCULAR VOLUME 94.8 fl (80.0-96.0); MONO # 0.5 10^3/uL (0.0-0.8); MONO % 5.8 % (0.0-5.0); NEUTROPHILS # 3.8 10^3/uL (1.8-7.7); NEUTROPHILS % 48.3 % (36.0-66.0); PLATELET COUNT, AUTOMATED 164 10^3/uL (150-450); RED BLOOD COUNT 3.49 10^6/uL (4.30-6.10); WHITE BLOOD COUNT 7.9 10^3/uL (4.0-10.0)
[2019-02-26 07:25] LABS: BLOOD UREA NITROGEN 8 MG/DL (7-18); CARBON DIOXIDE LEVEL 22 MEQ/L (21-32); CHLORIDE LEVEL 107 MEQ/L (98-107); CREATININE FOR GFR 0.42 MG/DL (0.70-1.30); GLOMERULAR FILTRATION RATE > 60.0 (>60); GLUCOSE, FASTING 185 MG/DL (70-100); MAGNESIUM LEVEL 2.1 MG/DL (1.8-2.4); POTASSIUM SERUM 3.5 MEQ/L (3.5-5.1); SODIUM LEVEL 136 MEQ/L (136-145)
[2019-02-26] MEDS ORDERED: PERCOCET 5MG/325MG TAB PO PRN (08:45)
[2019-02-26] MEDS: CHLORHEXIDINE GLUCONATE 0.12 % 15ML UDC (PERIDEX ORAL RINSE) SSP SCH ×4 (08:47→21:31)
[2019-02-26] MEDS: LEVEMIR (INSULIN DETEMIR) 1 UNITS/0.01ML SC SCH ×3 (08:47→22:53)
[2019-02-26] MEDS: HumaLOG INSULIN (NovoLOG) PER UNIT SC SCH ×4 (08:47→20:06)
[2019-02-26] MEDS: PANTOPRAZOLE 40MG TAB (PROTONIX) PO SCH (08:47)
[2019-02-26] MEDS: PERCOCET 5MG/325MG TAB PO PRN ×3 (08:53→22:43)
[2019-02-26] MEDS ORDERED: LEVE1INJ5 SC (13:01)
[2019-02-26] MEDS ORDERED: PEN1MIS22 SC (13:03)
[2019-02-26] MEDS ORDERED: GLUC1TES2 XX (13:03)
[2019-02-26] MEDS ORDERED: BLOOKIT21 XX (13:03)
[2019-02-26] MEDS ORDERED: ALCOPAD25 TOP (13:03)
--- NOTE | 2019-02-26 13:05 | IPNPDOC ---
Text Note Date of Service The patient was seen on 02/26/19. NOTE Subjective: Patient was seen and examined at the bedside. Patient reports that his back pain is doing better, still requiring pain medications. Has not expense any nausea, vomiting, abdominal pain, constipation, diarrhea, or urinary discomfort. Patient denies chest pain, shortness of breath, palpations. Reports that his mouth still continues to have some drainage. Taking regular diet. Objective: Vitals (See below) General: Lying in bed, no acute distress, comfortable, AAOx3 HEENT: NC, AT CVS: RRR, +S1S2, no rub , murmur or gallop. Lungs: Fair air entry b/l, no auscultated wheezing, rhonchi or rales Abdomen: Soft without distention or tenderness Extremities: No appreciable LE edema, - Calf tenderness Assessment and plan: Patient is a 28-year-old male with a PMHx of Pancreatitis (~ 1 year ago 2/2 EtOH), Migraines presented to the emergency room with complaints of worsening abdominal pain. Patient also had very nonspecific symptoms including lightheadedness, some shortness of breath, left flank pain. Upon arrival to emergency room, patient was found to have an elevated glucose and suspected to have DKA. Patient has also received imaging in the emergency room which revealed mild peripancreatic fat stranding. Hospitalist service was called and patient was admitted to the ICU where he received insulin drip. Patient has been transitioned to subcutaneous insulin. DKA / New onset DM2 Patient presented to the emergency room with complaint of abdominal pain Emergency room, patient was found to have an elevated glucose and an elevated anion gap with metabolic acidosis A1c noted to be 14.5 s/p insulin drip Patient's diet has been restarted; consistent carbohydrate c/w Levemir 10 BID and ISS Leukocytosis - possibly 2/2 reactive etiology, possibly 2/2 oral infection resolved Patient has very poor dentition and several teeth are in different stages of decay c/w Unasyn Discussed with oral surgeon; will likely have outpatient follow up Significant weight loss / Findings of Smudge cells being evaluated for malignancy. Negative till now. Patient has reported weight loss, approximately 60 pounds in 2 months, this could be due to Diabetes. CBC had revealed smudge cells, 1+ Peripheral smear 02/24: Mild normocytic anemia. Mild leukocytosis; no abnormal immature leukocytes identified. Essentially normal platelet morphology. CT head 02/24: There is no intracranial lesion. CT chest 02/24: Official report pending CT abdomen / pelvis 02/24: Previously seen acute pancreatitis with pancreatic necrosis appears to have resolved although minimal stranding of the peripancreatic fat is noted. This may represent residual changes or possibly acute pancreatitis recurrence. L flank pain - possibly 2/2 musculoskeletal etiology Will continue with pain control Hypercalcemia Resolved with IVF , now hypocalcemia probably elevated due to dehydration from the osmotic diuresis due to DKA will give calcium gloconate and start calcitriol and vit D Vitamin D / PTH level suppressed TSH noted Vitamin D (1,25-OH), PTHrP pending, SPEP/UPEP/Light chains pending s/p Pseudohyponatremia GI prophylaxis - c/w Protonix DVT prophylaxis - c/w Heparin Disposition: - Will try and taper down pain medications - Awaiting lab work to result A-FIB/CHADSVASC A-FIB History Current/History of A-Fib/PAF?: No VS,Fishbone, I+O VS, Fishbone, I+O Laboratory Tests 02/26/19 06:45 Red Blood Count 3.49 L, Mean Corpuscular Volume 94.8, Mean Corpuscular Hemoglobin 32.7, Mean Corpuscular Hemoglobin Concent 34.4, Red Cell Distribution Width 12.3, Neutrophils (%) (Auto) 48.3, Lymphocytes (%) (Auto) 41.8, Monocytes (%) (Auto) 5.8 H, Eosinophils (%) (Auto) 3.5 H, Basophils (%) (Auto) 0.3, Neutrophils # (Auto) 3.8, Lymphocytes # (Auto) 3.3, Monocytes # (Auto) 0.5, Eosinophils # (Auto) 0.3, Basophils # (Auto) 0.0, Calcium Level 6.0 L Vital Signs Date Time Temp Pulse Resp B/P (MAP) Pulse Ox O2 Delivery O2 Flow Rate FiO2 02/26/19 09:23 18 02/26/19 06:00 97.6 72 112/72 (85) 98 02/24/19 04:15 Room Air I&O- Last 24 Hours up to 6 AM 02/26/19 06:00 Intake Total 4390 ml Output Total 2950 ml Balance 1440 ml LEROY CHAN MD February 26, 2019 13:05
[2019-02-26] MEDS: VITAMIN D 1,000 INTERNATIONAL UNITS TABLET PO SCH (13:08)
[2019-02-26] MEDS: CALCITRIOL 0.25 MCG CAP (S0169) PO SCH (13:08)
[2019-02-26 14:00] VITALS: BP 122/77
[2019-02-26] MEDS ORDERED: CALCIUM GLUCONATE 1,000 MG in D5W MINI-BAG PLUS 100 ML IV ONE (14:00)
[2019-02-26 22:00] VITALS: BP 122/58
[2019-02-27] MEDS: AMPICILLIN SOD/SULBACTAM SOD 3 GM in D5W MINI-BAG PLUS 100 ML IV SCH ×2 (02:40→08:29)
[2019-02-27] MEDS: HEPARIN SOD (PORCINE) 5000 UNITS/ML VIAL SC SCH ×2 (05:21→12:17)
[2019-02-27] MEDS: PERCOCET 5MG/325MG TAB PO PRN (05:21)
[2019-02-27 05:37] VITALS: BP 109/70
[2019-02-27 07:14] LABS: BASO % 0.4 % (0.0-1.0); EOS # 0.3 10^3/uL (0.0-0.50); EOS % 3.1 % (0.0-3.0); HEMOGLOBIN 12.2 g/dl (13.5-17.5); LYMPH # 3.7 10^3/uL (1.5-4.5); LYMPH % 45.6 % (24.0-44.0); MEAN CORPUSCULAR HEMOGLOBIN 32.6 pg (27.0-33.0); MEAN CORPUSCULAR HGB CONC 34.9 g/dl (32.0-36.5); MEAN CORPUSCULAR VOLUME 93.6 fl (80.0-96.0); MONO # 0.5 10^3/uL (0.0-0.8); MONO % 5.6 % (0.0-5.0); NEUTROPHILS # 3.6 10^3/uL (1.8-7.7); NEUTROPHILS % 45.2 % (36.0-66.0); PLATELET COUNT, AUTOMATED 181 10^3/uL (150-450); RED BLOOD COUNT 3.74 10^6/uL (4.30-6.10); WHITE BLOOD COUNT 8.1 10^3/uL (4.0-10.0)
[2019-02-27] MEDS ORDERED: PERCOCET 5MG/325MG TAB PO PRN ×2 (07:15)
[2019-02-27 07:42] LABS: BLOOD UREA NITROGEN 7 MG/DL (7-18); CALCIUM LEVEL 6.7 MG/DL (8.5-10.1); CARBON DIOXIDE LEVEL 22 MEQ/L (21-32); CHLORIDE LEVEL 106 MEQ/L (98-107); CREATININE FOR GFR 0.42 MG/DL (0.70-1.30); GLOMERULAR FILTRATION RATE > 60.0 (>60); GLUCOSE, FASTING 221 MG/DL (70-100); MAGNESIUM LEVEL 2.1 MG/DL (1.8-2.4); POTASSIUM SERUM 3.9 MEQ/L (3.5-5.1); SODIUM LEVEL 135 MEQ/L (136-145)
[2019-02-27] MEDS: LEVEMIR (INSULIN DETEMIR) 1 UNITS/0.01ML SC SCH (08:29)
[2019-02-27] MEDS: HumaLOG INSULIN (NovoLOG) PER UNIT SC SCH ×2 (08:29→12:18)
[2019-02-27] MEDS: VITAMIN D 1,000 INTERNATIONAL UNITS TABLET PO SCH (08:29)
[2019-02-27] MEDS: CHLORHEXIDINE GLUCONATE 0.12 % 15ML UDC (PERIDEX ORAL RINSE) SSP SCH ×2 (08:29→12:17)
[2019-02-27] MEDS: PANTOPRAZOLE 40MG TAB (PROTONIX) PO SCH (08:30)
[2019-02-27] MEDS: CALCITRIOL 0.25 MCG CAP (S0169) PO SCH (08:30)
[2019-02-27] MEDS: SUCRALFATE 1 GM TAB PO SCH ×2 (08:30→12:18)
[2019-02-27] MEDS ORDERED: SUCR1TA PO (09:24)
[2019-02-27] MEDS ORDERED: CALC1TAB42 PO (09:24)
[2019-02-27] MEDS ORDERED: PANT40TA3 PO (09:24)
[2019-02-27] MEDS ORDERED: GLIM2TAB PO (09:24)
[2019-02-27] MEDS ORDERED: PERCOCET PO (09:24)
[2019-02-27] MEDS ORDERED: AUGM875T28 PO (09:24)
[2019-02-27] MEDS ORDERED: CALCIUM GLUCONATE 1,000 MG in D5W MINI-BAG PLUS 100 ML IV ONE (11:00)
[2019-02-27] MEDS ORDERED: LANC30MI XX (12:00)
--- NOTE | 2019-02-27 12:15 | DS.PDOC ---
Discharge Summary General Date of Admission February 24, 2019 at 03:46 Date of Discharge 02/27/19 Discharge Summary PROCEDURES PERFORMED DURING STAY: [None]. DISCHARGE DIAGNOSES: New onset Diabetes with DKA. Hypercalcemia Hypocalcemia Dehydration COMPLICATIONS/CHIEF COMPLAINT: Abdominal Pain. HISTORY OF PRESENT ILLNESS: See History and physical HOSPITAL COURSE: Patient is a 28-year-old male with a PMHx of Pancreatitis (~ 1 year ago 2/2 EtOH), Migraines presented to the emergency room with complaints of worsening abdominal pain. Patient also had very nonspecific symptoms including lightheadedness, some shortness of breath, left flank pain. Upon arrival to emergency room, patient was found to have an elevated glucose and suspected to have DKA. Patient has also received imaging in the emergency room which revealed mild peripancreatic fat stranding. Hospitalist service was called and patient was admitted to the ICU where he received insulin drip. Patient was admitted for new onset diabetes with DKA and Hypercalcemia. DKA / New onset Diabetes. Patient presented to the emergency room with complaint of abdominal pain Emergency room, patient was found to have an elevated glucose and an elevated anion gap with metabolic acidosis A1c noted to be 14.5 s/p insulin drip Patient's diet has been restarted; consistent carbohydrate c/w Levemir 10 BID and ISS, will also add glimepiride Leukocytosis -2/2 reactive etiology, possibly 2/2 oral infection resolved Patient has very poor dentition and several teeth are in different stages of decay treated with Unasyn in hospital will discharge with Augmentin. Discussed with oral surgeon; will likely have outpatient follow up Significant weight loss / Findings of Smudge cells being evaluated for malignancy. Negative till now. Patient has reported weight loss, approximately 60 pounds in 2 months, this could be due to Diabetes. CBC had revealed smudge cells, 1+ Peripheral smear 02/24: Mild normocytic anemia. Mild leukocytosis; no abnormal immature leukocytes identified. Essentially normal platelet morphology. CT head 02/24: There is no intracranial lesion. CT chest 02/24: Official report pending CT abdomen / pelvis 02/24: Previously seen acute pancreatitis with pancreatic necrosis appears to have resolved although minimal stranding of the peripancreatic fat is noted. This may represent residual changes or possibly acute pancreatitis recurrence. L flank pain - possibly 2/2 musculoskeletal etiology Will continue with pain control Hypercalcemia Resolved with IVF , now hypocalcemia probably elevated due to dehydration from the osmotic diuresis due to DKA start calcium and vit D Vitamin D / PTH level suppressed TSH noted Vitamin D (1,25-OH), PTHrP pending, SPEP negative. serum immunotyping and light chains in progress. s/p Pseudohyponatremia GI prophylaxis c/w Protonix and sucralfate. DISCHARGE MEDICATIONS: Please see below. ALLERGIES: Please see below. PHYSICAL EXAMINATION ON DISCHARGE: VITAL SIGNS: Please see below. General: Lying in bed, no acute distress, comfortable, AAOx3 HEENT: NC, AT, moist mucous membranes, periodontitis. CVS: RRR, +S1S2, no rub , murmur or gallop. Lungs: Fair air entry b/l, no auscultated wheezing, rhonchi or rales Abdomen: Soft without distention or tenderness Extremities: No appreciable LE edema, - Calf tenderness LABORATORY DATA: Please see below. ACTIVITY: [As tolerated]. DIET: Carb consistent, low fat DISCHARGE PLAN: Home DISPOSITION: Home DISCHARGE INSTRUCTIONS: Follow up PMD in 1 week Follow up work up for hypercalcemia. ITEMS TO FOLLOWUP ON ON OUTPATIENT: Follow up Basic metabolic panel and ionized calcium levels DISCHARGE CONDITION: [Stable]. TIME SPENT ON DISCHARGE: Greater than 30 minutes. Vital Signs/I&Os Vital Signs Date Time Temp Pulse Resp B/P (MAP) Pulse Ox O2 Delivery O2 Flow Rate FiO2 02/27/19 05:51 18 02/27/19 05:37 99.3 64 109/70 (83) 100 02/24/19 04:15 Room Air I&O- Last 24 Hours up to 6 AM 02/27/19 06:00 Intake Total 2670 ml Output Total 1700 ml Balance 970 ml Laboratory Data Labs 24H Laboratory Tests 2 02/26/19 16:55: Bedside Glucose (Misc Panel) 261H 02/26/19 19:44: Bedside Glucose (Misc Panel) 112H 02/26/19 22:47: Bedside Glucose (Misc Panel) 297H 02/27/19 06:48: Immature Granulocyte % (Auto) 0.1, White Blood Count 8.1, Red Blood Count 3.74L, Hemoglobin 12.2L, Hematocrit 35.0L, Mean Corpuscular Volume 93.6, Mean Corpuscular Hemoglobin 32.6, Mean Corpuscular Hemoglobin Concent 34.9, Red Cell Distribution Width 12.2, Platelet Count 181, Neutrophils (%) (Auto) 45.2, Lymphocytes (%) (Auto) 45.6H, Monocytes (%) (Auto) 5.6H, Eosinophils (%) (Auto) 3.1H, Basophils (%) (Auto) 0.4, Neutrophils # (Auto) 3.6, Lymphocytes # (Auto) 3.7, Monocytes # (Auto) 0.5, Eosinophils # (Auto) 0.3, Basophils # (Auto) 0.0, Nucleated Red Blood Cells % (auto) 0.0, Anion Gap 7L, Glomerular Filtration Rate > 60.0, Blood Urea Nitrogen 7, Creatinine 0.42L, Sodium Level 135L, Potassium Level 3.9, Chloride Level 106, Carbon Dioxide Level 22, Calcium Level 6.7L, Whole Blood Ionized Calcium 4.4L, Magnesium Level 2.1 02/27/19 11:44: Bedside Glucose (Misc Panel) 242H CBC/BMP Laboratory Tests 02/27/19 06:48 Red Blood Count 3.74 L, Mean Corpuscular Volume 93.6, Mean Corpuscular Hemo globin 32.6, Mean Corpuscular Hemoglobin Concent 34.9, Red Cell Distribution Width 12.2, Neutrophils (%) (Auto) 45.2, Lymphocytes (%) (Auto) 45.6 H, Monocytes (%) (Auto) 5.6 H, Eosinophils (%) (Auto) 3.1 H, Basophils (%) (Auto) 0.4, Neutrophils # (Auto) 3.6, Lymphocytes # (Auto) 3.7, Monocytes # (Auto) 0.5, Eosinophils # (Auto) 0.3, Basophils # (Auto) 0.0, Calcium Level 6.7 L FSBS Laboratory Tests Test 02/26/19 16:55 02/26/19 19:44 02/26/19 22:47 02/27/19 11:44 Range/Units Bedside Glucose (Misc Panel) 261 112 297 242 70-105 MG/DL Discharge Medications Scheduled Amoxicillin/Potassium Clav (Augmentin 875-125 Tablet) 1 Each Tablet, 875 MG PO BID Blood Sugar Diagnostic (Advanced Glucose Test Strips) 1 Each Strip, 1 STRIP XX ASDIRECTED Calcium Carbonate/Vitamin D3 (Calcium 500-Vit D3 600 Tablet) 1 Each Tablet, 1 TAB PO BID Glimepiride (Glimepiride) 2 Mg Tablet, 2 MG PO DAILY Insulin Detemir (Levemir Flextouch) 100 Unit/1 Ml Insuln.pen, 10 UNIT SC BID Pantoprazole Sodium (Pantoprazole Sodium) 40 Mg Tablet.dr, 40 MG PO DAILY Sucralfate (Sucralfate) 1 Gm Tablet, 1 GM PO AC Scheduled PRN Aspirin/Acetaminophen/Caffeine (Excedrin Migraine Caplet) 1 Each Tablet, 2 TAB PO BID PRN for MIGRAINE, (Reported) Oxycodone/Acetaminophen (Oxycodone-Acetaminophen 5-325) 1 Each Tablet, 1-2 TAB PO Q12HP PRN for SEVERE PAIN (PS 8-10) Allergies Coded Allergies: No Known Allergies (Unverified , 11/07/17) LEROY CHAN MD February 27, 2019 12:15
[2019-03-02 00:06] LABS: FREE KAPPA LIGHT CHAINS SERUM 11.1 mg/L (3.3-19.4); FREE LAMBDA LIGHT CHAINS SERUM 8.6 mg/L (5.7-26.3); KAPPA/LAMBDA RATIO SERUM 1.29 (0.26-1.65); VITAMIN D 1,25 DIHYDROXY 5.6 pg/mL (19.9-79.3)
== END 2019-02-27 14:47 | disposition home or self-care (01) | DRG 420 ==
LOC: M ED 21:36 → M ED INP 02-24 03:46 → M ICU 02-24 05:03 → M MS4PR 02-24 20:16
PROVIDERS: ADMIT Internal Medicine; ATTEND Internal Medicine Nephrology
DX: E11.10 Type 2 diabetes mellitus with ketoacidosis without coma (principal); E83.52 Hypercalcemia; E11.65 Type 2 diabetes mellitus with hyperglycemia; E87.1 Hypo-osmolality and hyponatremia; E83.51 Hypocalcemia; G43.709 Chronic migraine without aura, not intractable, without status migrainosus; E86.0 Dehydration; K21.9 Gastro-esophageal reflux disease without esophagitis; R63.4 Abnormal weight loss; Z79.899 Other long term (current) drug therapy

== ENCOUNTER → 2019-03-24 | Outpatient (REF) | payer MEDICAID ==
[~2019-03-24] MED LIST changes: +ALCOPAD25 TOP; +AUGM875T28 PO; +BLOOKIT21 XX; +CALC1TAB42 PO; +EXCETAB33 PO; +FAMO20TA4 PO; +GLIM2TAB PO; +GLUC1TES2 XX; +LANC30MI XX; +LEVE1INJ5 SC; +PEN1MIS22 SC; +SUCR1TA PO
[2019-03-24 16:07] LABS: BASO # 0.1 10^3/uL (0.0-0.2); BASO % 0.8 % (0.0-1.0); EOS # 0.5 10^3/uL (0.0-0.50); EOS % 5.8 % (0.0-3.0); HEMATOCRIT 44.2 % (42.0-52.0); HEMOGLOBIN 14.1 g/dl (13.5-17.5); LYMPH # 2.7 10^3/uL (1.5-4.5); MEAN CORPUSCULAR HGB CONC 31.9 g/dl (32.0-36.5); MEAN CORPUSCULAR VOLUME 97.1 fl (80.0-96.0); MONO # 0.5 10^3/uL (0.0-0.8); MONO % 5.9 % (0.0-5.0); NEUTROPHILS # 5.3 10^3/uL (1.8-7.7); PLATELET COUNT, AUTOMATED 272 10^3/uL (150-450); RED BLOOD COUNT 4.55 10^6/uL (4.30-6.10); WHITE BLOOD COUNT 9.2 10^3/uL (4.0-10.0)
[2019-03-24 16:21] LABS: ALBUMIN 3.4 GM/DL (3.2-5.2); ALT/SGPT 19 U/L (12-78); BILIRUBIN,TOTAL 0.3 MG/DL (0.2-1.0); BLOOD UREA NITROGEN 11 MG/DL (7-18); CALCIUM LEVEL 8.8 MG/DL (8.5-10.1); CARBON DIOXIDE LEVEL 28 MEQ/L (21-32); CHLORIDE LEVEL 108 MEQ/L (98-107); CHOLESTEROL LEVEL 244 MG/DL (<200); CHOLESTEROL RISK RATIO 7.393 (<5); CREATININE FOR GFR 0.74 MG/DL (0.70-1.30); GLOMERULAR FILTRATION RATE > 60.0 (>60); GLUCOSE, FASTING 131 MG/DL (70-100); HDL CHOLESTEROL 33 MG/DL (>40); LDL CHOLESTEROL 134 MG/DL (<100); NON-HDL-C 211 MG/DL; POTASSIUM SERUM 4.5 MEQ/L (3.5-5.1); SODIUM LEVEL 143 MEQ/L (136-145); TOTAL PROTEIN 6.4 GM/DL (6.4-8.2); TRIGLYCERIDES LEVEL 385 MG/DL (<150)
[2019-04-01 08:56] LABS: D001-IgE D pteronyssinus <0.10 kU/L (Class 0); E001-IgE Cat Epith/Dander < 0.10 kU/L (Class 0); E005-IgE Dog Dander < 0.10 kU/L (Class 0); G002-IgE Bermuda Grass < 0.10 kU/L (Class 0); G008-IgE Kentucky Bluegrass < 0.10 kU/L (Class 0); M001-IgE Penicillium chrysogen < 0.10 kU/L (Class 0); M002 IgE Cladosporium herbaru < 0.10 kU/L (Class 0); M003 IgE Aspergillus fumigatu < 0.10 kU/L (Class 0); M006-IgE Alternaria alternata < 0.10 kU/L (Class 0); T001-IgE Maple/Box Elder < 0.10 kU/L (Class 0); T003-IgE Common Silver Birch < 0.10 kU/L (Class 0); T006-IgE Cedar, Mountain < 0.10 kU/L (Class 0); T007-IgE Oak, White < 0.10 kU/L (Class 0); T008-IgE Elm, American < 0.10 kU/L (Class 0); T015-IgE Ash, White < 0.10 kU/L (Class 0); T041-IgE Hickory, White < 0.10 kU/L (Class 0); T070-IgE White Mulberry < 0.10 kU/L (Class 0); W001-IgE Ragweed, Short < 0.10 kU/L (Class 0); W009-IgE Plantain, English < 0.10 kU/L (Class 0); W014-IgE Pigweed, Rough < 0.10 kU/L (Class 0); W018-IgE Sheep Sorrel < 0.10 kU/L (Class 0)
== END ==
LOC: M SFHCPLAZ 14:02
PROVIDERS: ATTEND Physician Assistant Medical
DX: E11.65 Type 2 diabetes mellitus with hyperglycemia (principal); Z13.220 Encounter for screening for lipoid disorders; L02.91 Cutaneous abscess, unspecified; R51 Headache

== ENCOUNTER → 2019-04-14 | Outpatient (REF) | payer OTHER | LOC: M SFHCPLAZ 15:03 | PROVIDERS: ATTEND Physician Assistant Medical | DX: E11.65 Type 2 diabetes mellitus with hyperglycemia (principal) ==

== ENCOUNTER → 2019-05-12 | Outpatient (REF) | payer OTHER ==
[~2019-05-12] MED LIST changes: -OMEP20CA3 PO; +OMEP20CA4 PO
[2019-05-12 16:54] LABS: HEMOGLOBIN A1c 7.6 %
== END ==
LOC: M SFHCPLAZ 14:55
PROVIDERS: ATTEND Physician Assistant Medical
DX: E11.65 Type 2 diabetes mellitus with hyperglycemia (principal)

== ENCOUNTER 2019-07-28 15:02 | Inpatient (IN) | payer OTHER ==
[~2019-07-28] VITALS: Ht 182.9 cm; Wt 85.2 kg
[~2019-07-28 15:02] MED LIST changes: -GLIM2TAB PO; +GLIM2TAB4 PO; +OMEP1CAP73 PO; -OMEP20CA4 PO
[2019-07-28] MEDS ORDERED: SIMV40TA20 PO ×2 (15:23→19:17)
[2019-07-28] MEDS ORDERED: METF500T13 PO (15:23)
[2019-07-28] MEDS ORDERED: BASA100I SC (15:23)
[2019-07-28] MEDS ORDERED: TIZA4CAP PO (15:23)
[2019-07-28 15:56] LABS: BASO # 0.1 10^3/uL (0.0-0.2); BASO % 0.4 % (0.0-1.0); EOS # 0.2 10^3/uL (0.0-0.5); HEMOGLOBIN 14.4 g/dl (13.5-17.5); LYMPH # 2.9 10^3/uL (1.5-5.0); LYMPH % 19.9 % (24.0-44.0); MEAN CORPUSCULAR HEMOGLOBIN 32.1 pg (27.0-33.0); MEAN CORPUSCULAR HGB CONC 34.3 g/dl (32.0-36.5); MEAN CORPUSCULAR VOLUME 93.5 fl (80.0-96.0); MONO # 1.3 10^3/uL (0.0-0.8); MONO % 8.8 % (0.0-5.0); NEUTROPHILS # 10.1 10^3/uL (1.5-8.5); NEUTROPHILS % 69.6 % (36.0-66.0); PLATELET COUNT, AUTOMATED 224 10^3/uL (150-450); RED BLOOD COUNT 4.49 10^6/uL (4.30-6.10); WHITE BLOOD COUNT 14.6 10^3/uL (4.0-10.0)
[2019-07-28 16:25] LABS: ALT/SGPT 43 U/L (12-78); BILIRUBIN,DIRECT 0.3 MG/DL (0.0-0.2); LIPASE 125 U/L (73-393); TOTAL PROTEIN 6.8 GM/DL (6.4-8.2)
[2019-07-28] MEDS ORDERED: PANTOPRAZOLE 40MG INJ (PROTONIX) (C9113) IV ONE (16:45)
[2019-07-28] MEDS ORDERED: SUCRALFATE SUSP 1GM/10ML UD PO ONE (16:45)
[2019-07-28] MEDS ORDERED: NS 1,000 ML IV ONE (16:45)
[2019-07-28 17:26] LABS: BLOOD UREA NITROGEN 16 MG/DL (7-18); CALCIUM LEVEL 9.7 MG/DL (8.5-10.1); CARBON DIOXIDE LEVEL 26 MEQ/L (21-32); CHLORIDE LEVEL 107 MEQ/L (98-107); CREATININE FOR GFR 1.04 MG/DL (0.70-1.30); GLOMERULAR FILTRATION RATE > 60.0 (>60); GLUCOSE, FASTING 120 MG/DL (70-100); POTASSIUM SERUM 3.4 MEQ/L (3.5-5.1); SODIUM LEVEL 141 MEQ/L (136-145)
[2019-07-28] MEDS ORDERED: KETOROLAC 30 MG/ML VIAL (J1885) IV ONE (17:45)
[2019-07-28] MEDS ORDERED: ISOVUE-370 76% 100ML VIAL (Q9967) As Ordered ONE (17:51)
[2019-07-28] MEDS: HumaLOG INSULIN (NovoLOG) PER UNIT SC SCH (18:00)
--- NOTE | 2019-07-28 18:37 | REPVR ---
PROCEDURE INFORMATION: Exam: CT Abdomen and pelvis with contrast Exam date and time: 07/28/2019 5:53 PM Clinical history: 28 years old, male; Abdominal pain; Generalized; Additional info: Estee connell TECHNIQUE: Imaging protocol: Computed tomography of the abdomen and pelvis with intravenous contrast. Radiation optimization: All CT scans at this facility use at least one of these dose optimization techniques: automated exposure control; mA and/or kV adjustment per patient size (includes targeted exams where dose is matched to clinical indication); or iterative reconstruction. Contrast material: ISOVUE 370; Contrast volume: 100 ml; Contrast route: IV; COMPARISON: CT ABD/PEL W/IV CONTRAST ONLY 02/24/2019 1:20 AM FINDINGS: Liver: There is a diffuse decrease in hepatic parenchymal density, consistent with fatty infiltration. Gallbladder and bile ducts: Normal. No calcified stones. No ductal dilation. Pancreas: Atrophic changes in the pancreas with peripancreatic inflammation demonstrated at the pancreatic neck, head, and uncinate process, findings consistent with mild pancreatitis. No pseudocyst or phlegmon demonstrated at this time. Spleen: Normal. No splenomegaly. Adrenals: Normal. No mass. Kidneys and ureters: Normal. No hydronephrosis. Stomach and bowel: There is a diffusely boggy appearance of the ascending, transverse and left colon with mural stratification and an ahasutral countour. There are minimal pericolonic inflammatory changes. Findings consistent with acute or subacute colitis. No abscess demonstrated. Appendix: No evidence of appendicitis. Intraperitoneal space: Unremarkable. No free air. No significant fluid collection. Vasculature: Unremarkable. No abdominal aortic aneurysm. Lymph nodes: Unremarkable. No enlarged lymph nodes. Bladder: Unremarkable as visualized. Reproductive: The prostate gland demonstrates mild hyperplasia. Bones/joints: Unremarkable. No acute fracture. Soft tissues: See Pancreas Finding. IMPRESSION: 1. There is a diffuse decrease in hepatic parenchymal density, consistent with fatty infiltration. 2. Atrophic changes in the pancreas with peripancreatic inflammation demonstrated at the pancreatic neck, head, and uncinate process, findings consistent with mild pancreatitis. No pseudocyst or phlegmon demonstrated at this time. 3. Mild prostatic hyperplasia. 4. There is a diffusely boggy appearance of the ascending, transverse and left colon with mural stratification and an ahasutral countour. There are minimal pericolonic inflammatory changes. Findings consistent with acute or subacute colitis. No abscess demonstrated. Electronically signed by: Norris Jackson On 07/28/2019 18:37:16 PM
[2019-07-28] MEDS ORDERED: METOCLOPRAMIDE INJ 10MG/2ML VIAL (J2765) IV ONE (18:45)
[2019-07-28] MEDS ORDERED: MORPHINE 4 MG/ML 1ML VIAL/SYRINGE (J2270) IV PRN (18:45)
[2019-07-28] MEDS ORDERED: PERCOCET 5MG/325MG TAB PO PRN (19:00)
[2019-07-28] MEDS ORDERED: GLUCOSE 4 GM CHEW TABLET PO PRN (19:00)
[2019-07-28] MEDS ORDERED: GLUCAGON FOR INJ 1 MG VIAL (J1610) SC PRN (19:00)
[2019-07-28] MEDS ORDERED: LORazepam 2 MG TAB PO PRN (19:00)
[2019-07-28] MEDS ORDERED: DEXTROSE 50% 50 ML SYRINGE IV PRN (19:00)
[2019-07-28] MEDS ORDERED: KCL 40MEQ in NS 1000ML 1,000 ML IV SCH (19:00)
[2019-07-28] MEDS ORDERED: TIZA4TAB4 PO (19:17)
[2019-07-28] MEDS ORDERED: PANT40TA3 PO (19:17)
[2019-07-28] MEDS ORDERED: GLIM2TAB4 PO (19:17)
[2019-07-28] MEDS ORDERED: METF-791 PO (19:17)
--- NOTE | 2019-07-28 19:21 | HPEPDOC ---
[facility] Medical History & Physical Date of Admission Jul 28, 2019 Date of Service: Jul 28, 2019 Primary Care Physician: Patricia Kurtz Attending Physician: Jairon Short MD History and Physical TIME OF SERVICE: 7:45 PM CHIEF COMPLAINT: Pancreatitis HISTORY OF PRESENT ILLNESS: This is a 28-year-old male who presents with the chief complaint that he has pancreatitis; he has had over 12 episodes in the past due to drinking alcohol. He has had gradually worsening mid/right 8 out of 10 in severity, abdominal pain that radiates to his back. The pain began about one week ago, which is when he had his last drink; he did not give specifics as to how much he drank, but men tioned taking several shots and drinking several up other alcoholic beverages. He denies having nausea, denies having vomiting, denies having fevers, denies having chills, and denies having constipation. He has had two episodes of diarrhea, one yesterday and another one earlier on today; he denies eating new foods or eating out at a restaurant recently. REVIEW OF SYSTEMS: 12 point review of systems negative except as listed in HPI PAST MEDICAL/ SURGICAL HISTORY: Multiple episodes of pancreatitis secondary to alcohol. History of Macrocytic anemia Type 2 diabetes. GERD SOCIAL HISTORY: Smokes Drinks alcohol. Denies using recreational drugs FAMILY HISTORY: Cancer ALLERGIES: Please see below. HOME MEDICATIONS: Please see below. PHYSICAL EXAMINATION: VITAL SIGNS: Please see below. GENERAL APPEARANCE: Well-nourished, well-developed, appears uncomfortable HEENT: Normocephalic, atraumatic, mucous membranes moist and pink, there is no scleral icterus CARDIOVASCULAR: Regular rate and rhythm. No murmurs, rubs or gallops. Radial pulses are intact. There is no lower extremity edema LUNGS: Clear to auscultation bilaterally on room air ABDOMEN: Bowel sounds are hypoactive. Abdomen is soft and tender with palpation MUSCULOSKELETAL: Range of motion is intact in all 4 extremities INTEGUMENT: He does not have jaundice, slightly diaphoretic NEUROLOGICAL: Cranial nerves are 12 are grossly intact. Speech is not dysarthric PSYCHIATRIC: Alert and oriented to person, place and time, able to understand and follow commands LABORATORY DATA: See below. IMAGING: CT of the abdomen and pelvis "IMPRESSION: 1. There is a diffuse decrease in hepatic parenchymal density, consistent with fatty infiltration. 2. Atrophic changes in the pancreas with peripancreatic inflammation demonstrated at the pancreatic neck, head, and uncinate process, findings consistent with mild pancreatitis. No pseudocyst or phlegmon demonstrated at this time. 3. Mild prostatic hyperplasia. 4. There is a diffusely boggy appearance of the ascending, transverse and left colon with mural stratification and an ahasutral countour. There are minimal pericolonic inflammatory changes. Findings consistent with acute or subacute colitis. No abscess demonstrated. MICROBIOLOGY: Please see below. ASSESSMENT: Mr. Toney is a 28-year-old male with a past medical history of pancreatitis, GERD, and type 2 diabetes who will be admitted for management of acute pancreatitis. PLAN: 1. Acute pancreatitis secondary to alcohol abuse The diagnosis was made on the basis of the results of abdominal pain, and CT findings consistent with the diagnosis in the setting of consuming a lot of alcohol. Lipase and LFTs were within normal limits Plan: NPO/ IVF / Percocet & morphine PRN for pain 2. Alcohol abuse Plan: seizure precautions / fall precautions / Ativan per CIWA protocol /Thiamine , Folic acid, MVI / IVF / Zofran PRN for n/v /social work consult for referral to AA or other local support group 3. Possible colitis He had 2 episodes of diarrhea The infection is likely viral in nature WBC count elevated Plan: Monitor vitals will hold off antibiotics for now 4 .Type 2 diabetes. A1c 7.6 in April Plan: f/u accuchecks / hypoglycemia protocol / sliding scale insulin / hold oral anti-glycemics 5. GERD Plan: PPI 6. Tobacco abuse Plan: Nicotine patch/smoking cessation counseling [place] Prediction Score to determine need for AC in hospitalized pts = 3 = DVT px w SCDs. Disposition pending clinical course Vital Signs Vital Signs Date Time Temp Pulse Resp B/P (MAP) Pulse Ox O2 Delivery O2 Flow Rate FiO2 07/28/19 19:00 100 07/28/19 18:55 18 07/28/19 18:30 73 140/90 (107) 07/28/19 17:45 Room Air 07/28/19 15:03 96.9 Laboratory Data Labs 24H Laboratory Tests 2 07/28/19 15:50: Immature Granulocyte % (Auto) 0.3, White Blood Count 14.6H, Red Blood Count 4.49, Hemoglobin 14.4, Hematocrit 42.0, Mean Corpuscular Volume 93.5, Mean Corpuscular Hemoglobin 32.1, Mean Corpuscular Hemoglobin Concent 34.3, Red Cell Distribution Width 14.0, Platelet Count 224, Neutrophils (%) (Auto) 69.6H, Lymphocytes (%) (Auto) 19.9L, Monocytes (%) (Auto) 8.8H, Eosinophils (%) (Auto) 1.0, Basophils (%) (Auto) 0.4, Neutrophils # (Auto) 10.1H, Lymphocytes # (Auto) 2.9, Monocytes # (Auto) 1.3H, Eosinophils # (Auto) 0.2, Basophils # (Auto) 0.1, Nucleated Red Blood Cells % (auto) 0.0, Anion Gap 8, Glomerular Filtration Rate > 60.0, Calcium Level 9.7, Aspartate Amino Transf (AST/SGOT) 29, Alanine Aminotransferase (ALT/SGPT) 43, Alkaline Phosphatase 66, Total Bilirubin 1.0, Direct Bilirubin 0.3H, Total Protein 6.8, Albumin 4.0, Albumin/Globulin Ratio 1.43, Lipase 125 CBC/BMP Laboratory Tests 07/28/19 15:50 Red Blood Count 4.49, Mean Corpuscular Volume 93.5, Mean Corpuscular Hemoglobin 32.1, Mean Corpuscular Hemoglobin Concent 34.3, Red Cell Distribution Width 14.0, Neutrophils (%) (Auto) 69.6 H, Lymphocytes (%) (Auto) 19.9 L, Monocytes (%) (Auto) 8.8 H, Eosinophils (%) (Auto) 1.0, Basophils (%) (Auto) 0.4, Neutrophils # (Auto) 10.1 H, Lymphocytes # (Auto) 2.9, Monocytes # (Auto) 1.3 H, Eosinophils # (Auto) 0.2, Basophils # (Auto) 0.1 Home Medications Scheduled Glimepiride (Glimepiride) 2 Mg Tablet, 2 MG PO DAILY Insulin Glargine,Hum.rec.anlog (Basaglar Kwikpen U-100) 100 Unit/1 Ml In suln.pen, 10 UNIT SC BID Metformin HCl (Metformin HCl ER) 500 Mg Tab.er.24h, 500 MG PO BID Pantoprazole Sodium (Pantoprazole Sodium) 40 Mg Tablet.dr, 40 MG PO DAILY Simvastatin (Simvastatin) 40 Mg Tablet, 40 MG PO QPM Scheduled PRN Aspirin/Acetaminophen/Caffeine (Excedrin Migraine Caplet) 1 Each Tablet, 2 TAB PO BID PRN for MIGRAINE Tizanidine HCl (Tizanidine HCl) 4 Mg Tablet, 4 MG PO TID PRN for MUSCLE SPASMS Allergies Coded Allergies: No Known Allergies (Unverified , 11/07/17) A-FIB/CHADSVASC A-FIB History Current/History of A-Fib/PAF?: No Current PO Anticoag Therapy: No MARGOT BARBOZA MD Jul 28, 2019 19:21
[2019-07-28 20:00] VITALS: BP 127/78
[2019-07-28 20:05] VITALS: BP 136/89
[2019-07-28] MEDS: PERCOCET 5MG/325MG TAB PO PRN (20:31)
[2019-07-28] MEDS ORDERED: ONDANSETRON 4 MG TAB (S0181) PO PRN (21:15)
[2019-07-28] MEDS ORDERED: tiZANidine 4 MG TAB PO PRN (21:15)
[2019-07-28] MEDS ORDERED: EXCEDRIN MIGRAINE TABLET PO PRN (21:15)
[2019-07-29] MEDS: MORPHINE 4 MG/ML 1ML VIAL/SYRINGE (J2270) IV PRN ×4 (00:46→20:41)
[2019-07-29] MEDS: KCL 10MEQ IN D5/0.45NS 1000ML 1,000 ML IV SCH ×4 (00:47→18:20)
[2019-07-29] MEDS: SIMVASTATIN 40 MG TAB PO SCH ×2 (00:47→20:41)
[2019-07-29] MEDS: PERCOCET 5MG/325MG TAB PO PRN ×3 (05:46→18:21)
[2019-07-29 05:53] VITALS: BP 120/79
[2019-07-29] MEDS: HumaLOG INSULIN (NovoLOG) PER UNIT SC SCH ×4 (06:00→17:18)
[2019-07-29 06:10] VITALS: BP 120/79
[2019-07-29 06:27] LABS: IONIZED CALCIUM 4.9 MG/DL (4.5-5.3)
[2019-07-29 06:38] LABS: HEMATOCRIT 36.3 % (42.0-52.0); MEAN CORPUSCULAR HEMOGLOBIN 32.4 pg (27.0-33.0); MEAN CORPUSCULAR HGB CONC 33.6 g/dl (32.0-36.5); MEAN CORPUSCULAR VOLUME 96.3 fl (80.0-96.0); PLATELET COUNT, AUTOMATED 157 10^3/uL (150-450); RED BLOOD COUNT 3.77 10^6/uL (4.30-6.10); WHITE BLOOD COUNT 7.6 10^3/uL (4.0-10.0)
[2019-07-29 06:39] LABS: HEMOGLOBIN 12.2 g/dl (13.5-17.5)
[2019-07-29 07:00] LABS: ALBUMIN 3.4 GM/DL (3.2-5.2); ALT/SGPT 30 U/L (12-78); BILIRUBIN,TOTAL 0.8 MG/DL (0.2-1.0); BLOOD UREA NITROGEN 15 MG/DL (7-18); CALCIUM LEVEL 8.5 MG/DL (8.5-10.1); CARBON DIOXIDE LEVEL 28 MEQ/L (21-32); CHLORIDE LEVEL 109 MEQ/L (98-107); CHOLESTEROL LEVEL 89 MG/DL (<200); CHOLESTEROL RISK RATIO 2.119 (<5); CREATININE FOR GFR 0.87 MG/DL (0.70-1.30); GLOMERULAR FILTRATION RATE > 60.0 (>60); GLUCOSE, FASTING 101 MG/DL (70-100); HDL CHOLESTEROL 42 MG/DL (>40); LDL CHOLESTEROL -2 MG/DL (<100); NON-HDL-C 47 MG/DL; POTASSIUM SERUM 3.5 MEQ/L (3.5-5.1); SODIUM LEVEL 143 MEQ/L (136-145); TRIGLYCERIDES LEVEL 246 MG/DL (<150)
[2019-07-29] MEDS: MULTIVITAMINS/MINERALS THERAP 1 TAB PO SCH (08:47)
[2019-07-29] MEDS: PANTOPRAZOLE 40MG TAB (PROTONIX) PO SCH (08:47)
[2019-07-29] MEDS: THIAMINE HCL 200 MG/2 ML VIAL (J3411) IV SCH (08:48)
[2019-07-29] MEDS: NICOTINE 14 MG/24 HR TRANSDERMAL TD SCH (08:48)
[2019-07-29] MEDS: FOLIC ACID 1 MG in NS 50 ML IV SCH (08:48)
--- NOTE | 2019-07-29 10:36 | IPNPDOC ---
Subjective Date Seen The patient was seen on 07/29/19. Subjective Chief Complaint/HPI abdominal pain, diarrhea Events since last encounter admitted for resumed pancreatitis. Patient admits to binge drinking over a week ago. Abdominal symptoms started 2 days ago with 2 episodes of diarrhea. Denies eatng take out food or under cooked food. Pancreatic enzymes negative. CT consistent with colitis Constitutional: Denies: Chills, Fever, Night Sweats Pulmonary: Denies: Dyspnea, Cough Gastrointestinal: Reports: Nausea, Abdominal Pain, Diarrhea; Denies: Constipation Genitourinary: Denies: Dysuria, Frequency, Incontinence, Retention Psych: Reports: Mood Normal; Denies: Depression, Memory Issues Objective Physical Examination General Exam: Positive: Alert, No Acute Distress Neck Exam: Positive: Supple; Negative: JVD, thyromegaly Chest Exam: Positive: Clear to auscultation, Normal air movement Heart Exam: Positive: Rate Normal, Regular Rhythm, Normal S1, Normal S2; Negative: Murmurs, Rubs Abdomen Exam: Positive: Normal bowel sounds, Soft, Tenderness (RUQ); Negative: Hepatospenomegaly Psych Exam: Positive: Mental status NL, Mood NL, Oriented x 3 Assessment /Plan Problems (1) Colitis Status: Acute Problem Text: Will eval GI panel. Start clears and advance as tolerated (2) Pancreatitis Onset Date: 07/23/2014 Status: Acute Problem Text: normal enzymes and pain started 7 days after binge drinking. Most likely colitis. Plan/VTE VTE Prophylaxis Ordered?: No VTE Exclusion Mechanical Proph: Low Risk for VTE VS, I&O, 24H, Fishbone Vital Signs/I&O Vital Signs Date Time Temp Pulse Resp B/P (MAP) Pulse Ox O2 Delivery O2 Flow Rate FiO2 07/29/19 09:15 16 07/29/19 06:10 58 120/79 07/29/19 05:53 96.9 100 07/28/19 19:30 Room Air I&O- Last 24 Hours up to 6 AM 07/29/19 06:00 Intake Total 0 ml Output Total 800 ml Balance -800 ml Laboratory Data 24H LABS Laboratory Tests 2 07/28/19 15:50: Immature Granulocyte % (Auto) 0.3, White Blood Count 14.6H, Red Blood Count 4.49, Hemoglobin 14.4, Hematocrit 42.0, Mean Corpuscular Volume 93.5, Mean Corpuscular Hemoglobin 32.1, Mean Corpuscular Hemoglobin Concent 34.3, Red Cell Distribution Width 14.0, Platelet Count 224, Neutrophils (%) (Auto) 69.6H, Lymph ocytes (%) (Auto) 19.9L, Monocytes (%) (Auto) 8.8H, Eosinophils (%) (Auto) 1.0, Basophils (%) (Auto) 0.4, Neutrophils # (Auto) 10.1H, Lymphocytes # (Auto) 2.9, Monocytes # (Auto) 1.3H, Eosinophils # (Auto) 0.2, Basophils # (Auto) 0.1, Nucleated Red Blood Cells % (auto) 0.0, Anion Gap 8, Glomerular Filtration Rate > 60.0, Calcium Level 9.7, Aspartate Amino Transf (AST/SGOT) 29, Alanine Aminotransferase (ALT/SGPT) 43, Alkaline Phosphatase 66, Total Bilirubin 1.0, Direct Bilirubin 0.3H, Total Protein 6.8, Albumin 4.0, Albumin/Globulin Ratio 1.43, Lipase 125 07/28/19 20:14: Bedside Glucose (Misc Panel) 80 07/29/19 01:04: Bedside Glucose (Misc Panel) 102 07/29/19 06:15: Nucleated Red Blood Cells % (auto) 0.0, Anion Gap 6L, Glomerular Filtration Rate > 60.0, Calcium Level 8.5, Aspartate Amino Transf (AST/SGOT) 16, Alanine Aminotransferase (ALT/SGPT) 30, Alkaline Phosphatase 67, Total Bilirubin 0.8, Total Protein 6.0L, Albumin 3.4, Albumin/Globulin Ratio 1.31, Blood Urea Nitrogen 15, Creatinine 0.87, Sodium Level 143, Potassium Level 3.5, Chloride Level 109H, Carbon Dioxide Level 28, Triglycerides Level 246H, LDL Cholesterol -2, Whole Blood Ionized Calcium 4.9, Total Cholesterol 89, Non-HDL Cholesterol (LDL + VLDL) 47, Total HDL Cholesterol 42, Cholesterol/HDL Ratio 2.119 CBC/BMP Laboratory Tests 07/28/19 15:50 Red Blood Count 4.49, Mean Corpuscular Volume 93.5, Mean Corpuscular Hemoglobin 32.1, Mean Corpuscular Hemoglobin Concent 34.3, Red Cell Distribution Width 14.0, Neutrophils (%) (Auto) 69.6 H, Lymphocytes (%) (Auto) 19.9 L, Monocytes (%) (Auto) 8.8 H, Eosinophils (%) (Auto) 1.0, Basophils (%) (Auto) 0.4, Neutrophils # (Auto) 10.1 H, Lymphocytes # (Auto) 2.9, Monocytes # (Auto) 1.3 H, Eosinophils # (Auto) 0.2, Basophils # (Auto) 0.1 07/29/19 06:15 Red Blood Count 3.77 L, Mean Corpuscular Volume 96.3 H, Mean Corpuscular Hemoglobin 32.4, Mean Corpuscular Hemoglobin Concent 33.6, Red Cell Distribution Width 13.9, Calcium Level 8.5, Aspartate Amino Transf (AST/SGOT) 16, Alanine Aminotransferase (ALT/SGPT) 30, Alkaline Phosphatase 67, Total Bilirubin 0.8, Triglycerides Level 246 H, LDL Cholesterol -2, Total Protein 6.0 L, Albumin 3.4 Marizol Osullivan Jul 29, 2019 10:36
[2019-07-29 14:00] VITALS: BP 143/82
[2019-07-29 20:52] VITALS: BP 134/87
[2019-07-29 21:00] VITALS: BP 134/87
[2019-07-30] MEDS: PERCOCET 5MG/325MG TAB PO PRN ×3 (00:22→13:03)
[2019-07-30] MEDS: KCL 10MEQ IN D5/0.45NS 1000ML 1,000 ML IV SCH ×2 (00:59→08:34)
[2019-07-30] MEDS: MORPHINE 4 MG/ML 1ML VIAL/SYRINGE (J2270) IV PRN ×2 (03:24→09:58)
[2019-07-30 06:19] LABS: HEMATOCRIT 38.8 % (42.0-52.0); MEAN CORPUSCULAR HEMOGLOBIN 31.9 pg (27.0-33.0); MEAN CORPUSCULAR HGB CONC 33.5 g/dl (32.0-36.5); MEAN CORPUSCULAR VOLUME 95.1 fl (80.0-96.0); PLATELET COUNT, AUTOMATED 163 10^3/uL (150-450); RED BLOOD COUNT 4.08 10^6/uL (4.30-6.10); WHITE BLOOD COUNT 7.6 10^3/uL (4.0-10.0)
[2019-07-30 06:52] LABS: ALBUMIN 3.7 GM/DL (3.2-5.2); ALT/SGPT 27 U/L (12-78); BILIRUBIN,TOTAL 0.8 MG/DL (0.2-1.0); BLOOD UREA NITROGEN 5 MG/DL (7-18); CARBON DIOXIDE LEVEL 30 MEQ/L (21-32); CHLORIDE LEVEL 104 MEQ/L (98-107); CREATININE FOR GFR 0.88 MG/DL (0.70-1.30); GLOMERULAR FILTRATION RATE > 60.0 (>60); GLUCOSE, FASTING 101 MG/DL (70-100); SODIUM LEVEL 138 MEQ/L (136-145); TOTAL PROTEIN 6.7 GM/DL (6.4-8.2)
[2019-07-30 06:58] VITALS: BP 149/90
[2019-07-30] MEDS: FOLIC ACID 1 MG in NS 50 ML IV SCH (08:34)
[2019-07-30] MEDS: THIAMINE HCL 200 MG/2 ML VIAL (J3411) IV SCH (08:35)
[2019-07-30] MEDS: NICOTINE 14 MG/24 HR TRANSDERMAL TD SCH (08:36)
[2019-07-30] MEDS: MULTIVITAMINS/MINERALS THERAP 1 TAB PO SCH (08:36)
[2019-07-30] MEDS: PANTOPRAZOLE 40MG TAB (PROTONIX) PO SCH (08:36)
[2019-07-30] MEDS ORDERED: ACET1TAB55 PO (12:27)
--- NOTE | 2019-07-31 09:23 | DSES ---
DATE OF ADMISSION: 07/28/2019 DATE OF DISCHARGE: 07/30/2019 PRIMARY CARE PROVIDER: JOSELITO Kitchen ATTENDING TODAY: Dr. Short HISTORY: This is a 28-year-old male patient who presented to [facility] emergency room with abdominal pain radiating to his back that began one week prior to his presentation. He notes that it began after he last had an episode of binge drinking. He does have a history of drinking alcohol with pancreatitis. He denied nausea, vomiting, fevers, chills. He did have two episodes of severe abdominal pain. He was admitted to the hospital for presumed pancreatitis secondary to a history of alcohol abuse. During his hospitalization, he remained medically stable. Lipase remained normal. His white blood cell count on admission was 14.6 and this subsequently normalized overnight. He was kept nothing by mouth and placed on IV fluids. His diet has been advanced to clears, which he is tolerating. His pain has subsided significantly. Will transition him to a full liquid diet and then advance diet as tolerated at home. I reviewed recommendations in regards to this extensively with the patient and I also counseled him on smoking cessation and alcohol cessation, as the likelihood of recurrence is high if he returns home to drink. He should followup with his primary care provider on August 13, 2019 as he is previously scheduled. He will call the office with any questions or concerns in the interim. DISCHARGE DIAGNOSIS: Colitis with abdominal pain. DISCHARGE MEDICATIONS: Include: - acetaminophen 325 mg two tablets every 6 hours as needed for pain - Excedrin two tables twice daily as needed for migraines - glimepiride 2 mg by mouth daily - Basaglar 10 units subcu twice a day - metformin 500 mg by mouth twice a day - Protonix 40 mg by mouth daily - simvastatin 40 mg by mouth at bedtime - tizanidine 4 mg by mouth three times a day for muscle spasms DISCHARGE PLAN: Followup with JOSELITO Kitchen on August 13, 2019.
== END 2019-07-30 15:40 | disposition home or self-care (01) | DRG 249 ==
LOC: M ED 15:02 → M ED INP 18:53 → M MS5PR 19:52
PROVIDERS: ADMIT General Practice; ATTEND Family Medicine
DX: K52.9 Noninfective gastroenteritis and colitis, unspecified (principal); E11.9 Type 2 diabetes mellitus without complications; D53.9 Nutritional anemia, unspecified; F17.200 Nicotine dependence, unspecified, uncomplicated; F10.10 Alcohol abuse, uncomplicated; K21.9 Gastro-esophageal reflux disease without esophagitis; Z79.4 Long term (current) use of insulin; Z79.899 Other long term (current) drug therapy

== ENCOUNTER → 2019-08-13 | Outpatient (REF) | payer OTHER ==
[~2019-08-13] MED LIST changes: +ACET1TAB55 PO; +BASA100I SC; +GLIM2TAB2 PO; -GLIM2TAB4 PO; +METF-791 PO; +METF500T13 PO; -OMEP1CAP73 PO; +OMEP20CA4 PO; +SIMV40TA2 PO; +TIZA4CAP PO; +TIZA4TAB4 PO
[2019-08-13 18:16] LABS: ALBUMIN 4.1 GM/DL (3.2-5.2); ALT/SGPT 36 U/L (12-78); AMYLASE 19 U/L (25-115); BILIRUBIN,TOTAL 0.7 MG/DL (0.2-1.0); BLOOD UREA NITROGEN 14 MG/DL (7-18); CALCIUM LEVEL 9.7 MG/DL (8.5-10.1); CARBON DIOXIDE LEVEL 30 MEQ/L (21-32); CHLORIDE LEVEL 106 MEQ/L (98-107); CREATININE FOR GFR 0.85 MG/DL (0.70-1.30); GLOMERULAR FILTRATION RATE > 60.0 (>60); GLUCOSE, FASTING 87 MG/DL (70-100); LIPASE 61 U/L (73-393); POTASSIUM SERUM 3.5 MEQ/L (3.5-5.1); SODIUM LEVEL 141 MEQ/L (136-145); TOTAL PROTEIN 7.2 GM/DL (6.4-8.2)
[2019-08-13 18:23] LABS: BASO # 0.1 10^3/uL (0.0-0.2); BASO % 0.6 % (0.0-1.0); EOS # 0.4 10^3/uL (0.0-0.5); EOS % 3.5 % (0.0-3.0); HEMATOCRIT 45.4 % (42.0-52.0); HEMOGLOBIN 14.5 g/dl (13.5-17.5); LYMPH # 2.6 10^3/uL (1.5-5.0); LYMPH % 26.3 % (24.0-44.0); MEAN CORPUSCULAR HEMOGLOBIN 31.3 pg (27.0-33.0); MEAN CORPUSCULAR HGB CONC 31.9 g/dl (32.0-36.5); MEAN CORPUSCULAR VOLUME 98.1 fl (80.0-96.0); MONO # 0.8 10^3/uL (0.0-0.8); MONO % 8.3 % (0.0-5.0); NEUTROPHILS # 6.1 10^3/uL (1.5-8.5); NEUTROPHILS % 61.1 % (36.0-66.0); PLATELET COUNT, AUTOMATED 240 10^3/uL (150-450); RED BLOOD COUNT 4.63 10^6/uL (4.30-6.10)
== END ==
LOC: M SFHCPLAZ 14:32
PROVIDERS: ATTEND Physician Assistant Medical
DX: Z87.19 Personal history of other diseases of the digestive system (principal)

== ENCOUNTER → 2019-08-24 | Outpatient (REF) | payer OTHER | LOC: M SFHCPLAZ 14:16 | PROVIDERS: ATTEND Physician Assistant Medical | DX: E11.65 Type 2 diabetes mellitus with hyperglycemia (principal) ==

== ENCOUNTER 2019-09-20 18:23 | Emergency (ER) | payer OTHER ==
[~2019-09-20] VITALS: Ht 182.9 cm; Wt 81.8 kg
[2019-09-20] MEDS ORDERED: CREO6000 (18:37)
[2019-09-20 19:53] LABS: BASO # 0.1 10^3/uL (0.0-0.2); BASO % 0.6 % (0.0-1.0); EOS # 0.5 10^3/uL (0.0-0.5); HEMATOCRIT 45.2 % (42.0-52.0); HEMOGLOBIN 14.6 g/dl (13.5-17.5); LYMPH # 3.5 10^3/uL (1.5-5.0); LYMPH % 38.6 % (24.0-44.0); MEAN CORPUSCULAR HEMOGLOBIN 30.7 pg (27.0-33.0); MEAN CORPUSCULAR HGB CONC 32.3 g/dl (32.0-36.5); MEAN CORPUSCULAR VOLUME 95.2 fl (80.0-96.0); MONO # 0.5 10^3/uL (0.0-0.8); MONO % 5.6 % (0.0-5.0); NEUTROPHILS # 4.5 10^3/uL (1.5-8.5); PLATELET COUNT, AUTOMATED 203 10^3/uL (150-450); RED BLOOD COUNT 4.75 10^6/uL (4.30-6.10); WHITE BLOOD COUNT 8.9 10^3/uL (4.0-10.0)
[2019-09-20 20:21] LABS: ALBUMIN 4.4 GM/DL (3.2-5.2); ALT/SGPT 26 U/L (12-78); BILIRUBIN,DIRECT < 0.1 MG/DL (0.0-0.2); BILIRUBIN,TOTAL 0.3 MG/DL (0.2-1.0); LIPASE 91 U/L (73-393); TOTAL PROTEIN 7.7 GM/DL (6.4-8.2)
[2019-09-20] MEDS ORDERED: PERCOCET 5MG/325MG TAB PO ONE (21:00)
[2019-09-20] MEDS ORDERED: ONDANSETRON 4 MG ORAL DISINTEGRATING TAB (Q0162 PER 1MG) PO ONE (21:00)
[2019-09-20 21:13] LABS: AMYLASE 21 U/L (25-115)
--- NOTE | 2019-09-20 22:15 | REPVR ---
PROCEDURE INFORMATION: Exam: US Abdomen Limited, Right Upper Quadrant Exam date and time: 09/20/2019 9:43 PM Age: 29 years old Clinical history: Abdominal pain; Acute; Additional info: Pain ruq TECHNIQUE: Imaging protocol: Real-time ultrasound of the abdomen with image documentation. Examination was focused on the right upper quadrant. COMPARISON: GALLBLADDER US 09/20/2014 10:02 PM FINDINGS: Liver: The visualized liver demonstrates no focal defects. Gallbladder: The gallbladder demonstrates no wall thickening measuring 1.5 mm. There is gallbladder sludge and small stones. Common bile duct: The CBD measures 5-6 mm. Pancreas: Limited visualization of the pancreas demonstrates no abnormality. Right kidney: The right kidney is normal measuring 12.0 cm. IMPRESSION: 1. Gallbladder sludge and small stones. 2. Otherwise negative right upper quadrant sonogram. Electronically signed by: Renny Cole On 09/20/2019 22:15:00 PM
[2019-09-20 22:20] VITALS: BP 138/90
--- NOTE | 2019-09-20 22:22 | REPVR ---
PROCEDURE INFORMATION: Exam: CT Abdomen And Pelvis Without Contrast Exam date and time: 09/20/2019 10:11 PM Age: 29 years old Clinical history: Abdominal pain; Flank; Right; Additional info: R flank pain TECHNIQUE: Imaging protocol: Computed tomography of the abdomen and pelvis without contrast. Radiation optimization: All CT scans at this facility use at least one of these dose optimization techniques: automated exposure control; mA and/or kV adjustment per patient size (includes targeted exams where dose is matched to clinical indication); or iterative reconstruction. COMPARISON: CT ABD/PEL W/IV CONTRAST ONLY 07/28/2019 5:51 PM FINDINGS: Liver: The liver at mid clavicular line measures 14.2 cm. The liver attenuation is 57 Hounsfield units and the spleen is 47 Hounsfield units. Gallbladder and bile ducts: Normal. No calcified stones. No ductal dilation. Pancreas: Slight peripancreatic induration about the head. The pancreas appears truncated at the body/tail. Spleen: Normal. No splenomegaly. Adrenals: Normal. No mass. Kidneys and ureters: Normal. No hydronephrosis. Stomach and bowel: Unremarkable. No obstruction. No mucosal thickening. Appendix: A normal appendix is seen. Intraperitoneal space: Unremarkable. No free air. No significant fluid collection. Vasculature: Unremarkable. No abdominal aortic aneurysm. Lymph nodes: Unremarkable. No enlarged lymph nodes. Bladder: Unremarkable as visualized. Reproductive: Unremarkable as visualized. Bones/joints: Unremarkable. No acute fracture. Soft tissues: Unremarkable. IMPRESSION: 1. There has been little change from 07/28/2019. 2. Minimal pancreatitis centered about the head. 3. Otherwise negative CT abdomen/pelvis. No renal or ureteral calculi are evident and there is no evidence of obstructive uropathy. Electronically signed by: Renny Cole On 09/20/2019 22:22:07 PM
[2019-09-20] MEDS ORDERED: DOXY100C37 PO (22:34)
[2019-09-20] MEDS ORDERED: cefTRIAXone SOD 250 MG VIAL (J0696) IM ONE (22:45)
[2019-09-20] MEDS ORDERED: LIDOCAINE 1% SDV 5 ML VIAL DILUENT ONE (22:45)
[2019-09-20] MEDS ORDERED: AZITHROMYCIN 250 MG TAB PO ONE (22:45)
== END 2019-09-20 22:47 | disposition home or self-care (01) ==
LOC: M ED 18:23
DX: N39.0 Urinary tract infection, site not specified (principal); K80.20 Calculus of gallbladder without cholecystitis without obstruction; K86.1 Other chronic pancreatitis; E11.9 Type 2 diabetes mellitus without complications; F17.200 Nicotine dependence, unspecified, uncomplicated; I10 Essential (primary) hypertension; Z79.4 Long term (current) use of insulin; Z79.82 Long term (current) use of aspirin; Z79.899 Other long term (current) drug therapy
CPT/HCPCS: 74176; 76705; 80047; 80076; 81001; 82150; 83690; 85025; 87086; 96372; 99283; J0696; Q0162

== ENCOUNTER → 2020-04-05 | Outpatient (REF) | payer OTHER ==
[~2020-04-05] MED LIST changes: +CREO6000; +DOXY100C37 PO; -GLIM2TAB2 PO; +GLIM2TAB4 PO; -METF-791 PO; +METF-838 PO; +OMEP1CAP73 PO; -OMEP20CA4 PO; -SIMV40TA2 PO; +SIMV40TA20 PO
[2020-04-05 13:58] LABS: BASO # 0.1 10^3/uL (0.0-0.2); BASO % 0.6 % (0.0-1.0); EOS # 0.6 10^3/uL (0.0-0.5); EOS % 6.5 % (0.0-3.0); HEMATOCRIT 41.2 % (42.0-52.0); HEMOGLOBIN 14.1 g/dl (13.5-17.5); LYMPH # 3.4 10^3/uL (1.5-5.0); LYMPH % 38.3 % (24.0-44.0); MEAN CORPUSCULAR HEMOGLOBIN 31.7 pg (27.0-33.0); MEAN CORPUSCULAR HGB CONC 34.2 g/dl (32.0-36.5); MEAN CORPUSCULAR VOLUME 92.6 fl (80.0-96.0); MONO # 0.5 10^3/uL (0.0-0.8); NEUTROPHILS # 4.3 10^3/uL (1.5-8.5); NEUTROPHILS % 48.5 % (36.0-66.0); PLATELET COUNT, AUTOMATED 207 10^3/uL (150-450); RED BLOOD COUNT 4.45 10^6/uL (4.30-6.10); WHITE BLOOD COUNT 8.8 10^3/uL (4.0-10.0)
[2020-04-05 14:21] LABS: HEMOGLOBIN A1c 6.5 %
[2020-04-05 14:32] LABS: ALBUMIN 3.9 GM/DL (3.2-5.2); ALT/SGPT 27 U/L (12-78); BILIRUBIN,TOTAL 0.3 MG/DL (0.2-1.0); BLOOD UREA NITROGEN 14 MG/DL (7-18); CARBON DIOXIDE LEVEL 30 MEQ/L (21-32); CHLORIDE LEVEL 105 MEQ/L (98-107); CHOLESTEROL LEVEL 135 MG/DL (<200); CHOLESTEROL RISK RATIO 3.552 (<5); CPK CREATINE PHOSPHOKINASE 76 U/L (39-308); CREATININE FOR GFR 0.76 MG/DL (0.70-1.30); GLOMERULAR FILTRATION RATE > 60.0 (>60); GLUCOSE, FASTING 114 MG/DL (70-100); HDL CHOLESTEROL 38 MG/DL (>40); LDL CHOLESTEROL 65 MG/DL (<100); LIPASE 46 U/L (73-393); NON-HDL-C 97 MG/DL; POTASSIUM SERUM 3.8 MEQ/L (3.5-5.1); SODIUM LEVEL 140 MEQ/L (136-145); TRIGLYCERIDES LEVEL 160 MG/DL (<150)
== END ==
LOC: M SFHCPLAZ 11:44
PROVIDERS: ATTEND Physician Assistant Medical
DX: E78.5 Hyperlipidemia, unspecified (principal); D64.9 Anemia, unspecified; Z87.19 Personal history of other diseases of the digestive system; E11.65 Type 2 diabetes mellitus with hyperglycemia

== ENCOUNTER 2020-10-16 03:40 | Inpatient (IN) | payer OTHER ==
[~2020-10-16] VITALS: Ht 182.9 cm; Wt 81.0 kg
[~2020-10-16 03:40] MED LIST changes: -AMLO10TA5 PO; +AMLO1TAB25 PO; -CREO6000; +CREO6000 PO; -PANT20TA2 PO; +PANT20TA6 PO; +PANT40TA29 PO; -PANT40TA3 PO; -VITA100T88 PO; +VITAMIN B-1100 M4 PO
[2020-10-16] MEDS ORDERED: NS 1,000 ML IV ONE ×2 (04:00→09:15)
[2020-10-16] MEDS ORDERED: ONDANSETRON 4MG/2ML VIAL IV ONE (05:00)
[2020-10-16 05:16] LABS: BASO # 0.1 10^3/uL (0.0-0.2); BASO % 0.3 % (0.0-1.0); EOS # 0.1 10^3/uL (0.0-0.5); EOS % 0.3 % (0.0-3.0); HEMATOCRIT 40.7 % (42.0-52.0); HEMOGLOBIN 13.7 g/dl (13.5-17.5); LYMPH # 1.8 10^3/uL (1.5-5.0); MEAN CORPUSCULAR HEMOGLOBIN 30.4 pg (27.0-33.0); MEAN CORPUSCULAR HGB CONC 33.7 g/dl (32.0-36.5); MEAN CORPUSCULAR VOLUME 90.2 fl (80.0-96.0); MONO # 0.9 10^3/uL (0.0-0.8); MONO % 5.5 % (0.0-5.0); NEUTROPHILS # 12.5 10^3/uL (1.5-8.5); NEUTROPHILS % 81.6 % (36.0-66.0); PLATELET COUNT, AUTOMATED 223 10^3/uL (150-450); RED BLOOD COUNT 4.51 10^6/uL (4.30-6.10); WHITE BLOOD COUNT 15.3 10^3/uL (4.0-10.0)
[2020-10-16] MEDS: MORPHINE 4 MG/ML 1ML VIAL/SYRINGE (J2270) IV PRN ×2 (05:17→07:36)
[2020-10-16] MEDS ORDERED: LORazepam 2 MG/ML VIAL IV STA (05:43)
[2020-10-16 05:46] LABS: ALBUMIN 4.1 GM/DL (3.2-5.2); ALT/SGPT 27 U/L (12-78); BILIRUBIN,DIRECT 0.2 MG/DL (0.0-0.2); BILIRUBIN,TOTAL 0.9 MG/DL (0.2-1.0); BLOOD UREA NITROGEN 20 MG/DL (7-18); CALCIUM LEVEL 10.4 MG/DL (8.5-10.1); CARBON DIOXIDE LEVEL 28 MEQ/L (21-32); CHLORIDE LEVEL 99 MEQ/L (98-107); CREATININE FOR GFR 0.86 MG/DL (0.70-1.30); ETHYL ALCOHOL (ETHANOL) < 0.003 % (0.000-0.010); GLOMERULAR FILTRATION RATE > 60.0 (>60); GLUCOSE, FASTING 154 MG/DL (70-100); LIPASE 207 U/L (73-393); POTASSIUM SERUM 3.8 MEQ/L (3.5-5.1); SODIUM LEVEL 136 MEQ/L (136-145); TOTAL PROTEIN 7.3 GM/DL (6.4-8.2)
[2020-10-16] MEDS ORDERED: ISOVUE-370 76% 100ML VIAL As Ordered ONE (06:43)
--- NOTE | 2020-10-16 07:52 | REPVR ---
PROCEDURE INFORMATION: Exam: CT Abdomen and Pelvis with Contrast Exam date and time: 10/16/20 (6:47am) Age: 30 years old Clinical indication: Epigastric pain TECHNIQUE: Imaging protocol: Computed tomography of the abdomen and pelvis with intravenous contrast. Radiation optimization: All CT scans at this facility use at least one of these dose optimization techniques: automated exposure control; mA and/or kV adjustment per patient size (includes targeted exams where dose is matched to clinical indication); or iterative reconstruction. Contrast material: Iso Contrast volume: 100 ml Contrast route: IV COMPARISON: CT ABDOMEN PELVIS of 09/20/19 FINDINGS: Liver: Normal. No mass. Mild diffuse fatty infiltration. Gallbladder and bile ducts: Normal. No calcified stones. No ductal dilation. Pancreas: No mass. Perhaps mild inflammation / edema involving the head and neck regions of the pancreas (similar appearance 4 weeks ago). No pseudocyst formation. No drainable collections. Spleen: No splenomegaly. Probable small accessory spleen (1 cm size) at the splenic hilum region. Adrenal glands: Normal. No mass. Kidneys and ureters: Normal. No hydronephrosis. Stomach and bowel: Unremarkable. No obstruction. No mucosal thickening. Appendix: A normal appendix is visualized. Intraperitoneal space: Unremarkable. No free air. No significant fluid collection. Vasculature: Unremarkable. No abdominal aortic aneurysm. Lymph nodes: Unremarkable. No enlarged lymph nodes. Urinary bladder: Unremarkable as visualized. Reproductive: Unremarkable as visualized. Bones/joints: Unremarkable. No acute fracture. Soft tissues: Unremarkable. IMPRESSION: Possible mild acute pancreatitis, involving the head and neck regions of the pancreas. No pseudocyst formation. No drainable collections. A similar appearance was noted 4 weeks ago. Clinical and laboratory correlation are suggested. No acute bowel pathology. No hydronephrosis. Electronically signed by: Lou Menezes On 10/16/2020 07:52:15 AM
[2020-10-16] MEDS: MORPHINE 2 MG/ML 1ML VIAL (J2270) IV PRN ×2 (09:01→09:49)
[2020-10-16] MEDS ORDERED: LISI-542 PO (09:08)
[2020-10-16] MEDS ORDERED: AMLO1TAB25 PO (09:08)
[2020-10-16 09:31] LABS: AMPHETAMINES LEVEL URINE NEGATIVE (NEGATIVE); BARBITURATES URINE NEGATIVE (NEGATIVE); BENZODIAZEPINES URINE NEGATIVE (NEGATIVE); CANNABINOIDS URINE NEGATIVE (NEGATIVE); COCAINE METABOLITE URINE NEGATIVE (NEGATIVE); METHADONE URINE NEGATIVE (NEGATIVE); OPIATES URINE POSITIVE (NEGATIVE); PHENCYCLIDINE URINE NEGATIVE (NEGATIVE)
[2020-10-16 10:05] LABS: RSV AMPLIFICATION NEGATIVE (NEGATIVE)
[2020-10-16] MEDS: ONDANSETRON 4MG/2ML VIAL IV PRN ×2 (10:22→21:38)
[2020-10-16] MEDS ORDERED: KETOROLAC 30 MG/ML 1ML VIAL IV ONE (11:00)
[2020-10-16 12:24] VITALS: BP 137/82
[2020-10-16] MEDS: CREON-12 CAPSULE PO SCH ×2 (12:30→17:15)
[2020-10-16] MEDS: GLIMEPIRIDE 2 MG TAB PO SCH (12:39)
[2020-10-16] MEDS: amLODIPine 10 MG TAB PO SCH (12:39)
[2020-10-16] MEDS: PANTOPRAZOLE 40MG VIAL (C9113 PER 1) IV SCH ×2 (12:39→23:57)
[2020-10-16] MEDS: LR 1,000 ML IV SCH ×2 (12:40→17:18)
[2020-10-16] MEDS: PERCOCET 5MG/325MG TAB PO PRN ×2 (12:43→21:31)
--- NOTE | 2020-10-16 13:14 | HPEPDOC ---
General Date of Admission 10/16/20 Date of Service: Oct 16, 2020 Chief Complaint The patient is a 30-year-old male admitted with a reason for visit of Abd Pain. Source: Patient History of Present Illness 30 year old male with PMH of chronic pancreatitis, gastritis, GERD, Diabetes, hypertesnion presented to the ED with 2 days h/o abdominal pain , nausea and vomiting. The josselin is located int eh epigastrium and the periumbilical area, sharp constant in nature about 8/10 , radiating straight tot he back. he needed 10 mg of morphine in the ED. He admits that he drank heavily 2 days ago about 8 to 10 drinks and the pain started after that. He says he has cut down on his dri nking but still drinks heavily about 1-2 times a month. He has chronic abdominal pain which he manages with ibuprofen 400 to 800 mg about 4 to 5 times a week. He denies buying any pain meds from the streets. He denies using any street drugs. CT abdomen showed chronic swelling and inflammation of the head and neck of pancreas unchanged from the last 3 CT scans. His lipase was not elevated. He was admitted for flare of chronic pancreatitis and possibly acute gastritis. Home Medications Scheduled Amlodipine Besylate (Amlodipine Besylate) 10 Mg Tablet, 10 MG PO DAILY, (Reported) Glimepiride (Glimepiride) 2 Mg Tablet, 2 MG PO DAILY, (Reported) Insulin Glargine,Hum.rec.anlog (Basaglar Kwikpen U-100) 100 Unit/1 Ml Insuln.pen, 10 UNIT SC BID, (Reported) Lipase/Protease/Amylase (Creon 6,000 Units Capsule) 1 Each Capsule.dr, 6,000 UNIT PO WM, (Reported) Lisinopril (Lisinopril) 5 Mg Tablet, 5 MG PO QPM, (Reported) Metformin HCl (Metformin HCl ER) 500 Mg Tab.er.24h, 500 MG PO DAILY, (Reported) Pantoprazole Sodium (Pantoprazole Sodium) 40 Mg Tablet.dr, 40 MG PO DAILY, (Reported) Simvastatin (Simvastatin) 40 Mg Tablet, 40 MG PO QPM, (Reported) Scheduled PRN Aspirin/Acetaminophen/Caffeine (Excedrin Migraine Caplet) 1 Each Tablet, 2 TAB PO BID PRN for MIGRAINE, (Reported) Tizanidine HCl (Tizanidine HCl) 4 Mg Tablet, 4 MG PO TID PRN for MUSCLE SPASMS, (Reported) Allergies Coded Allergies: No Known Allergies (Unverified , 11/07/17) Past Medical History Medical History Chronic pancreatitis with chronically swollen and inflamed head of pancreas since 2010. Diabetes Reflux esophagitis Hypertension Migraine HLD Alcohol abuse does intermittent binges. Poor dentition Vit D def. Family History Significant Family History: Cancer (Mother colon cancer) Social History * Smoker: current smoker Alcohol: occationally (in binges) Drugs: cocaine, marijuana A-FIB/CHADSVASC A-FIB History Current/History of A-Fib/PAF?: No Review of Systems Constitutional: Denies: Chills, Fever, Night Sweats Eyes: Denies: Pain, Vision change ENT: Denies: Head Aches, Ear Pain, Dysphagia Skin: Denies: Rash, Lesions, Breakdown Pulmonary: Denies: Dyspnea, Cough Cardiovascular: Denies: Chest Pain, Palpitations, Orthopnea, Paroxysmal Noc. Dyspnea, Lt Headedness Gastrointestinal: Reports: Nausea, Vomiting, Abdominal Pain Genitourinary: Denies: Dysuria, Frequency, Incontinence, Retention Hematologic: Denies: Bruising, Bleeding Excessively Physical Examination General Exam: Positive: Alert, Cooperative, No Acute Distress Eye Exam: Positive: PERRLA, Conjunctiva & lids normal, EOMI; Negative: Sclera icteric ENT Exam: Positive: Atraumatic, Mucous membr. moist/pink, Pharynx Normal Neck Exam: Positive: Supple; Negative: JVD, thyromegaly Chest Exam: Positive: Clear to auscultation, Normal air movement Heart Exam: Positive: Rate Normal, Regular Rhythm, Normal S1, Normal S2; Negative: Murmurs, Rubs Abdomen Exam: Positive: BS Hypoactive, Soft, Tenderness (in kinjal epigastrium and periumbilical area); Negative: Hepatospenomegaly Extremity Exam: Positive: Normal pulses; Negative: Clubbing, Cyanosis, Edema Skin Exam: Positive: Nl turgor and temperature; Negative: Breakdown, Lesion Vital Signs Vital Signs Date Time Temp Pulse Resp B/P (MAP) Pulse Ox O2 Delivery O2 Flow Rate FiO2 10/16/20 09:49 18 10/16/20 08:30 73 150/85 (106) 99 Room Air 10/16/20 03:41 97.8 Laboratory Data Labs 24H Laboratory Tests 2 10/16/20 04:26: Immature Granulocyte % (Auto) 0.3, Neutrophils (%) (Auto) 81.6H, Lymphocytes (%) (Auto) 12.0L, Monocytes (%) (Auto) 5.5H, Eosinophils (%) (Auto) 0.3, Basophils (%) (Auto) 0.3, Neutrophils # (Auto) 12.5H, Lymphocytes # (Auto) 1.8, Monocytes # (Auto) 0.9H, Eosinophils # (Auto) 0.1, Basophils # (Auto) 0.1, Nucleated Red Blood Cells % (auto) 0.0, Anion Gap 9, Glomerular Filtration Rate > 60.0, Calcium Level 10.4H, Total Bilirubin 0.9, Direct Bilirubin 0.2, Aspartate Amino Transf (AST/SGOT) 19, Alanine Aminotransferase (ALT/SGPT) 27, Alkaline Phosphatase 78, Total Protein 7.3, Albumin 4.1, Albumin/Globulin Ratio 1.3, Lipase 207, Ethyl Alcohol Level < 0.003 10/16/20 08:31: Urine Color YELLOW, Urine Appearance CLEAR, Urine pH 6.0, Urine Specific Garita >1.060H, Urine Protein NEGATIVE, Urine Glucose (UA) 2+H, Urine Ketones 1+H, Urine Blood NEGATIVE, Urine Nitrite NEGATIVE, Urine Bilirubin NEGATIVE, Urine Urobilinogen 0.2, Urine Leukocyte Esterase NEGATIVE, Urine WBC (Auto) 0, Urine RBC (Auto) 2, Urine Hyaline Casts (Auto) 0, Urine Bacteria (Auto) NEGATIVE, Urine Squamous Epithelial Cells 1, Urine Mucus (Auto) SMALL, Urine Sperm (Auto) , Urine Opiates Screen POSITIVEH, Urine Methadone Screen NEGATIVE, Urine Bar biturates Screen NEGATIVE, Urine Phencyclidine Screen NEGATIVE, Urine Amphetamines Screen NEGATIVE, Urine Benzodiazepines Screen NEGATIVE, Urine Cocaine Metabolite Screen NEGATIVE, Urine Cannabinoids Screen NEGATIVE 10/16/20 09:22: Coronavirus (COVID-19)(PCR) NEGATIVE, Influenza Type A (RT-PCR) NEGATIVE, Influenza Type B (RT-PCR) NEGATIVE, Respiratory Syncytial Virus (PCR) NEGATIVE CBC/BMP Laboratory Tests 10/16/20 04:26 Assessment/Plan 30 year old male with PMH of chronic pancreatitis, gastritis, GERD, Diabetes, hypertesnion presented to the ED with 2 days h/o abdominal pain , nausea and vomiting. The josselin is located int eh epigastrium and the periumbilical area, sharp constant in nature about 8/10 , radiating straight tot he back. he needed 10 mg of morphine in the ED. He admits that he drank heavily 2 days ago about 8 to 10 drinks and the pain started after that. He says he has cut down on his drinking but still drinks heavily about 1-2 times a month. He has chronic abdominal pain which he manages with ibuprofen 400 to 800 mg about 4 to 5 times a week. He denies buying any pain meds from the streets. He denies using any street drugs. CT abdomen showed chronic swelling and inflammation of the head and neck of pancreas unchanged from the last 3 CT scans. His lipase was not elevated. He was admitted for flare of chronic pancreatitis and possibly acute gastritis. Flare of Chronic pancreatitis with chronically swollen and inflamed head of pancreas has had multiple attacks of acute pancreatitis due to alcohol. Now he has chronic pancreatitis which has a flare due the the alcohol binge 2 days ago. pain control with toradol and percocet. IVF, diet clear liquid then advance as tolerated. continue Creon when eating orally Diabetes continue glimiperide Lispro as per sliding scale will hold metformin. Reflux esophagitis Pantoprazole bid Hypertension amlodipine, lisinopril. Migraine no issues at this time HLD statin Alcohol abuse does intermittent binges. counselling about stopping. Dehydration will continue ivf Hypercalcemia previous work up neg this is due to dehydration contiue IVF Plan / VTE VTE Prophylaxis Ordered?: Yes LEROY CHAN MD Oct 16, 2020 10:32
[2020-10-16] MEDS ORDERED: DEXTROSE 50% 50 ML SYRINGE IV PRN (13:15)
[2020-10-16] MEDS ORDERED: GLUCAGON INJ 1MG VIAL SC PRN (13:15)
[2020-10-16] MEDS ORDERED: GLUCOSE 4GM CHEW TABLET PO PRN (13:15)
[2020-10-16] MEDS: HumaLOG INSULIN (NovoLOG) PER UNIT SC SCH ×2 (17:08→21:00)
[2020-10-16 17:10] VITALS: BP 161/84
[2020-10-16] MEDS: LORazepam 2 MG TAB PO PRN (17:17)
[2020-10-16] MEDS: traMADol 50 MG TAB PO SCH (17:17)
[2020-10-16] MEDS: THIAMINE 100 MG TAB PO SCH (17:19)
[2020-10-16] MEDS: KETOROLAC 30 MG/ML 1ML VIAL IV PRN (18:36)
[2020-10-16] MEDS: lisinopriL 5 MG TAB PO SCH (21:29)
[2020-10-16] MEDS: SIMVASTATIN 40 MG TAB PO SCH (21:29)
[2020-10-16 22:00] VITALS: BP 125/68
[2020-10-17] MEDS: KETOROLAC 30 MG/ML 1ML VIAL IV PRN ×2 (00:04→06:28)
[2020-10-17] MEDS: LORazepam 2 MG TAB PO PRN ×3 (03:29→20:09)
[2020-10-17] MEDS: LR 1,000 ML IV SCH ×2 (03:31→08:14)
[2020-10-17] MEDS: PERCOCET 5MG/325MG TAB PO PRN ×3 (03:31→16:06)
[2020-10-17 05:35] LABS: BASO % 0.2 % (0.0-1.0); EOS # 0.1 10^3/uL (0.0-0.5); EOS % 1.1 % (0.0-3.0); HEMATOCRIT 35.7 % (42.0-52.0); HEMOGLOBIN 12.3 g/dl (13.5-17.5); LYMPH # 3.3 10^3/uL (1.5-5.0); LYMPH % 27.4 % (24.0-44.0); MEAN CORPUSCULAR HEMOGLOBIN 31.3 pg (27.0-33.0); MEAN CORPUSCULAR HGB CONC 34.5 g/dl (32.0-36.5); MEAN CORPUSCULAR VOLUME 90.8 fl (80.0-96.0); MONO # 0.8 10^3/uL (0.0-0.8); MONO % 6.7 % (0.0-5.0); NEUTROPHILS # 7.8 10^3/uL (1.5-8.5); NEUTROPHILS % 64.4 % (36.0-66.0); PLATELET COUNT, AUTOMATED 164 10^3/uL (150-450); RED BLOOD COUNT 3.93 10^6/uL (4.30-6.10); WHITE BLOOD COUNT 12.2 10^3/uL (4.0-10.0)
[2020-10-17 05:56] LABS: BLOOD UREA NITROGEN 7 MG/DL (7-18); CALCIUM LEVEL 8.5 MG/DL (8.5-10.1); CARBON DIOXIDE LEVEL 28 MEQ/L (21-32); CHLORIDE LEVEL 100 MEQ/L (98-107); CREATININE FOR GFR 0.63 MG/DL (0.70-1.30); GLOMERULAR FILTRATION RATE > 60.0 (>60); GLUCOSE, FASTING 121 MG/DL (70-100); LIPASE 337 U/L (73-393); POTASSIUM SERUM 3.2 MEQ/L (3.5-5.1); SODIUM LEVEL 135 MEQ/L (136-145)
[2020-10-17 06:00] VITALS: BP 121/68
[2020-10-17] MEDS: traMADol 50 MG TAB PO SCH ×2 (06:00)
[2020-10-17] MEDS: HumaLOG INSULIN (NovoLOG) PER UNIT SC SCH ×4 (07:30→21:00)
[2020-10-17] MEDS: FOLIC ACID 1 MG TAB PO SCH (08:12)
[2020-10-17] MEDS: amLODIPine 10 MG TAB PO SCH (08:12)
[2020-10-17] MEDS: CREON-12 CAPSULE PO SCH ×3 (08:12→17:45)
[2020-10-17] MEDS: MULTIVITAMINS/MINERALS THERAP 1 TAB PO SCH (08:12)
[2020-10-17] MEDS: ENOXAPARIN 40MG/0.4ML SYRINGE (J1650 PER 10MG) SC SCH (08:13)
[2020-10-17] MEDS: THIAMINE 100 MG TAB PO SCH ×2 (08:13→20:06)
[2020-10-17] MEDS: GLIMEPIRIDE 2 MG TAB PO SCH (08:13)
[2020-10-17] MEDS: POTASSIUM CHLORIDE INJ 40 MEQ in LR 1,000 ML IV SCH ×2 (10:00→21:24)
[2020-10-17] MEDS: ONDANSETRON 4MG/2ML VIAL IV PRN ×3 (10:02→21:26)
[2020-10-17 11:17] VITALS: BP 140/80
[2020-10-17] MEDS: PANTOPRAZOLE 40MG VIAL (C9113 PER 1) IV SCH (11:22)
[2020-10-17] MEDS: MORPHINE 4 MG/ML 1ML VIAL/SYRINGE (J2270) IV PRN ×3 (12:33→21:26)
--- NOTE | 2020-10-17 12:34 | IPNPDOC ---
Subjective Date Seen The patient was seen on 10/17/20. Subjective Chief Complaint/HPI Continues to have severe epigastric pain and acid reflux. Has not been able to drink much liquids yet, No fever or chills. Sugars normal. does not like the toradol says it worsens the reflux and wanted the morphine instead. Objective Physical Examination General Exam: Positive: Alert, Cooperative, No Acute Distress Eye Exam: Positive: PERRLA, Conjunctiva & lids normal, EOMI; Negative: Sclera icteric ENT Exam: Positive: Atraumatic, Mucous membr. moist/pink, Pharynx Normal Neck Exam: Positive: Supple; Negative: JVD, thyromegaly Chest Exam: Positive: Clear to auscultation, Normal air movement Heart Exam: Positive: Rate Normal, Regular Rhythm, Normal S1, Normal S2; Negative: Murmurs, Rubs Abdomen Exam: Positive: BS Hypoactive, Soft, Tenderness (in kinjal epigastrium and periumbilical area); Negative: Hepatospenomegaly Extremity Exam: Positive: Normal pulses; Negative: Clubbing, Cyanosis, Edema Skin Exam: Positive: Nl turgor and temperature; Negative: Breakdown, Lesion Assessment /Plan Assessment 30 year old male with PMH of chronic pancreatitis, gastritis, GERD, Diabetes, hypertesnion presented to the ED with 2 days h/o abdominal pain , nausea and vomiting. The josselin is located int eh epigastrium and the periumbilical area, sharp constant in nature about 8/10 , radiating straight tot he back. he needed 10 mg of morphine in the ED. He admits that he drank heavily 2 days ago about 8 to 10 drinks and the pain started after that. He says he has cut down on his dr inking but still drinks heavily about 1-2 times a month. He has chronic abdominal pain which he manages with ibuprofen 400 to 800 mg about 4 to 5 times a week. He denies buying any pain meds from the streets. He denies using any street drugs. CT abdomen showed chronic swelling and inflammation of the head and neck of pancreas unchanged from the last 3 CT scans. His lipase was not elevated. He was admitted for flare of chronic pancreatitis and possibly acute gastritis. Flare of Chronic pancreatitis with chronically swollen and inflamed head of pancreas has had multiple attacks of acute pancreatitis due to alcohol. Now he has chronic pancreatitis which has a flare due the the alcohol binge 2 days ago. pain control with Morphine and percocet. Does not like the toradol. continue Creon when eating orally diet advanced to full liquids. Diabetes continue glimiperide Lispro as per sliding scale will hold metformin. Reflux esophagitis Pantoprazole bid Hypertension amlodipine, lisinopril. Migraine no issues at this time HLD statin Alcohol abuse does intermittent binges. counselling about stopping. Ciwa protocol. Dehydration will continue ivf Hypercalcemia previous work up neg this is due to dehydration continue IVF Hypokalemia replaced. Plan/VTE VTE Prophylaxis Ordered?: Yes VS, I&O, 24H, Fishbone Vital Signs/I&O Vital Signs Date Time Temp Pulse Resp B/P (MAP) Pulse Ox O2 Delivery O2 Flow Rate FiO2 10/17/20 11:17 140/80 10/17/20 10:00 18 10/17/20 08:12 56 10/17/20 06:00 97.5 98 Room Air I&O- Last 24 Hours up to 6 AM 10/17/20 06:00 Intake Total 4300 ml Output Total 1500 ml Balance 2800 ml Laboratory Data 24H LABS Laboratory Tests 2 10/16/20 17:05: Bedside Glucose (Misc Panel) 125H 10/16/20 21:18: Bedside Glucose (Misc Panel) 123H 10/17/20 05:16: Immature Granulocyte % (Auto) 0.2, Neutrophils (%) (Auto) 64.4, Lymphocytes (%) (Auto) 27.4, Monocytes (%) (Auto) 6.7H, Eosinophils (%) (Auto) 1.1, Basophils (%) (Auto) 0.2, Neutrophils # (Auto) 7.8, Lymphocytes # (Auto) 3.3, Monocytes # (Auto) 0.8, Eosinophils # (Auto) 0.1, Basophils # (Auto) 0.0, Nucleated Red Blood Cells % (auto) 0.0, Anion Gap 7L, Glomerular Filtration Rate > 60.0, Calcium Level 8.5#, Lipase 337 10/17/20 11:47: Bedside Glucose (Misc Panel) 85 CBC/BMP Laboratory Tests 10/17/20 05:16 LEROY CHAN MD Oct 17, 2020 12:34
[2020-10-17 13:41] VITALS: BP 148/96
[2020-10-17] MEDS: SIMVASTATIN 40 MG TAB PO SCH (20:06)
[2020-10-17 20:07] VITALS: BP 154/83
[2020-10-17] MEDS: lisinopriL 5 MG TAB PO SCH (20:07)
[2020-10-17 22:00] VITALS: BP 154/83
[2020-10-18] MEDS: POTASSIUM CHLORIDE INJ 40 MEQ in LR 1,000 ML IV SCH ×5 (00:05→23:23)
[2020-10-18] MEDS: PANTOPRAZOLE 40MG VIAL (C9113 PER 1) IV SCH ×2 (00:05→12:40)
[2020-10-18] MEDS: PERCOCET 5MG/325MG TAB PO PRN ×3 (00:05→19:24)
[2020-10-18] MEDS: MORPHINE 4 MG/ML 1ML VIAL/SYRINGE (J2270) IV PRN (03:37)
[2020-10-18 04:00] VITALS: BP 121/70
[2020-10-18 06:00] VITALS: BP 121/70
[2020-10-18 06:19] LABS: BASO % 0.3 % (0.0-1.0); EOS # 0.1 10^3/uL (0.0-0.5); EOS % 0.8 % (0.0-3.0); HEMATOCRIT 36.8 % (42.0-52.0); HEMOGLOBIN 12.3 g/dl (13.5-17.5); LYMPH # 2.6 10^3/uL (1.5-5.0); LYMPH % 22.1 % (24.0-44.0); MEAN CORPUSCULAR HEMOGLOBIN 30.4 pg (27.0-33.0); MEAN CORPUSCULAR HGB CONC 33.4 g/dl (32.0-36.5); MEAN CORPUSCULAR VOLUME 90.9 fl (80.0-96.0); MONO # 0.8 10^3/uL (0.0-0.8); NEUTROPHILS # 8.2 10^3/uL (1.5-8.5); NEUTROPHILS % 69.5 % (36.0-66.0); PLATELET COUNT, AUTOMATED 150 10^3/uL (150-450); RED BLOOD COUNT 4.05 10^6/uL (4.30-6.10); WHITE BLOOD COUNT 11.8 10^3/uL (4.0-10.0)
[2020-10-18 06:48] LABS: BLOOD UREA NITROGEN 9 MG/DL (7-18); CALCIUM LEVEL 8.7 MG/DL (8.5-10.1); CARBON DIOXIDE LEVEL 31 MEQ/L (21-32); CHLORIDE LEVEL 100 MEQ/L (98-107); CREATININE FOR GFR 0.76 MG/DL (0.70-1.30); GLOMERULAR FILTRATION RATE > 60.0 (>60); GLUCOSE, FASTING 105 MG/DL (70-100); LIPASE 282 U/L (73-393); POTASSIUM SERUM 3.7 MEQ/L (3.5-5.1); SODIUM LEVEL 136 MEQ/L (136-145)
[2020-10-18 07:00] VITALS: BP 124/72
[2020-10-18] MEDS: HumaLOG INSULIN (NovoLOG) PER UNIT SC SCH ×4 (07:30→21:00)
[2020-10-18] MEDS: ENOXAPARIN 40MG/0.4ML SYRINGE (J1650 PER 10MG) SC SCH (08:21)
[2020-10-18] MEDS: GLIMEPIRIDE 2 MG TAB PO SCH (08:22)
[2020-10-18] MEDS: amLODIPine 10 MG TAB PO SCH (08:22)
[2020-10-18] MEDS: CREON-12 CAPSULE PO SCH ×3 (08:23→19:22)
[2020-10-18] MEDS: THIAMINE 100 MG TAB PO SCH ×2 (08:23→21:13)
[2020-10-18] MEDS: FOLIC ACID 1 MG TAB PO SCH (08:23)
[2020-10-18] MEDS: MULTIVITAMINS/MINERALS THERAP 1 TAB PO SCH (08:23)
--- NOTE | 2020-10-18 13:10 | IPNPDOC ---
Subjective Date Seen The patient was seen on 10/18/20. Subjective Chief Complaint/HPI continues to have severe abdominal pain and requiring IV morphine several times a day. Still unable to tolerate liquid diet. Reports he throws up as soon as he is drinking anything. Objective Physical Examination General Exam: Positive: Alert, Cooperative, No Acute Distress Eye Exam: Positive: PERRLA, Conjunctiva & lids normal, EOMI; Negative: Sclera icteric ENT Exam: Positive: Atraumatic, Mucous membr. moist/pink, Pharynx Normal Neck Exam: Positive: Supple; Negative: JVD, thyromegaly Chest Exam: Positive: Clear to auscultation, Normal air movement Heart Exam: Positive: Rate Normal, Regular Rhythm, Normal S1, Normal S2; Negative: Murmurs, Rubs Abdomen Exam: Positive: BS Hypoactive, Soft, Tenderness (in kinjal epigastrium and periumbilical area); Negative: Hepatospenomegaly Extremity Exam: Positive: Normal pulses; Negative: Clubbing, Cyanosis, Edema Skin Exam: Positive: Nl turgor and temperature; Negative: Breakdown, Lesion Assessment /Plan Assessment 30 year old male with PMH of chronic pancreatitis, gastritis, GERD, Diabetes, hypertesnion presented to the ED with 2 days h/o abdominal pain , nausea and vomiting. The josselin is located int eh epigastrium and the periumbilical area, sharp constant in nature about 8/10 , radiating straight tot he back. he needed 10 mg of morphine in the ED. He admits that he drank heavily 2 days ago about 8 to 10 drinks and the pain started after that. He says he has cut down on his drinking but still drinks heavily about 1-2 times a month. He has chronic abdominal pain which he manages with ibuprofen 400 to 800 mg about 4 to 5 times a week. He denies buying any pain meds from the streets. He denies using any street drugs. CT abdomen showed chronic swelling and inflammation of the head and neck of pancreas unchanged from the last 3 CT scans. His lipase was not elevated. He was admitted for flare of chronic pancreatitis and possibly acute gastritis. Flare of Chronic pancreatitis with chronically swollen and inflamed head of pancreas has had multiple attacks of acute pancreatitis due to alcohol. Now he has chronic pancreatitis which has a flare due the the alcohol binge 2 days prior to admission pain control with Morphine and percocet. Does not like the toradol. continue Creon when eating orally diet full liquids. Diabetes continue glimiperide Lispro as per sliding scale will hold metformin. Reflux esophagitis Pantoprazole bid Hypertension amlodipine, lisinopril. Migraine no issues at this time HLD statin Alcohol abuse does intermittent binges. counselling about stopping. Ciwa protocol. Dehydration will continue ivf Hypercalcemia previous work up neg this is due to dehydration continue IVF Hypokalemia replaced. Plan/VTE VTE Prophylaxis Ordered?: Yes VS, I&O, 24H, Fishbone Vital Signs/I&O Vital Signs Date Time Temp Pulse Resp B/P (MAP) Pulse Ox O2 Delivery O2 Flow Rate FiO2 10/18/20 09:00 16 10/18/20 08:22 60 121/70 10/18/20 06:00 97.9 98 Room Air I&O- Last 24 Hours up to 6 AM 10/18/20 06:00 Intake Total 2900 ml Output Total 2800 ml Balance 100 ml Laboratory Data 24H LABS Laboratory Tests 2 10/17/20 16:36: Bedside Glucose (Misc Panel) 116H 10/17/20 20:09: Bedside Glucose (Misc Panel) 102 10/18/20 05:45: Immature Granulocyte % (Auto) 0.3, Neutrophils (%) (Auto) 69.5H, Lymphocytes (%) (Auto) 22.1L, Monocytes (%) (Auto) 7.0H, Eosinophils (%) (Auto) 0.8, Basophils (%) (Auto) 0.3, Neutrophils # (Auto) 8.2, Lymphocytes # (Auto) 2.6, Monocytes # (Auto) 0.8, Eosinophils # (Auto) 0.1, Basophils # (Auto) 0.0, Nucleated Red Blood Cells % (auto) 0.0, Anion Gap 5L, Glomerular Filtration Rate > 60.0, Calcium Level 8.7, Lipase 282 10/18/20 06:01: Bedside Glucose (Misc Panel) 105 10/18/20 11:41: Bedside Glucose (Misc Panel) 121H CBC/BMP Laboratory Tests 10/18/20 05:45 LEROY CHAN MD Oct 18, 2020 13:10
[2020-10-18 14:00] VITALS: BP_SYST 155; BP_DIAS 78; BP_DIAS 83
[2020-10-18] MEDS: ONDANSETRON 4MG/2ML VIAL IV PRN (19:24)
[2020-10-18] MEDS: lisinopriL 5 MG TAB PO SCH (21:13)
[2020-10-18] MEDS: SIMVASTATIN 40 MG TAB PO SCH (21:14)
[2020-10-18 22:00] VITALS: BP_SYST 103; BP_SYST 151; BP_DIAS 59; BP_DIAS 80
[2020-10-19] MEDS: PANTOPRAZOLE 40MG VIAL (C9113 PER 1) IV SCH ×3 (00:16→22:11)
[2020-10-19] MEDS: PERCOCET 5MG/325MG TAB PO PRN ×4 (04:19→20:49)
[2020-10-19] MEDS: POTASSIUM CHLORIDE INJ 40 MEQ in LR 1,000 ML IV SCH (05:54)
[2020-10-19 06:00] VITALS: BP 132/89
[2020-10-19 06:19] LABS: BASO % 0.4 % (0.0-1.0); EOS # 0.2 10^3/uL (0.0-0.5); EOS % 1.9 % (0.0-3.0); HEMOGLOBIN 12.9 g/dl (13.5-17.5); LYMPH # 1.8 10^3/uL (1.5-5.0); MEAN CORPUSCULAR HGB CONC 34.9 g/dl (32.0-36.5); MEAN CORPUSCULAR VOLUME 91.8 fl (80.0-96.0); MONO # 0.7 10^3/uL (0.0-0.8); MONO % 7.2 % (0.0-5.0); NEUTROPHILS # 6.7 10^3/uL (1.5-8.5); NEUTROPHILS % 71.2 % (36.0-66.0); PLATELET COUNT, AUTOMATED 159 10^3/uL (150-450); RED BLOOD COUNT 4.03 10^6/uL (4.30-6.10); WHITE BLOOD COUNT 9.4 10^3/uL (4.0-10.0)
[2020-10-19 06:41] LABS: BLOOD UREA NITROGEN 7 MG/DL (7-18); CALCIUM LEVEL 8.7 MG/DL (8.5-10.1); CARBON DIOXIDE LEVEL 28 MEQ/L (21-32); CHLORIDE LEVEL 102 MEQ/L (98-107); CREATININE FOR GFR 0.71 MG/DL (0.70-1.30); GLOMERULAR FILTRATION RATE > 60.0 (>60); GLUCOSE, FASTING 156 MG/DL (70-100); LIPASE 149 U/L (73-393); POTASSIUM SERUM 3.9 MEQ/L (3.5-5.1); SODIUM LEVEL 135 MEQ/L (136-145)
[2020-10-19] MEDS: HumaLOG INSULIN (NovoLOG) PER UNIT SC SCH ×4 (08:07→20:46)
[2020-10-19] MEDS: ENOXAPARIN 40MG/0.4ML SYRINGE (J1650 PER 10MG) SC SCH (08:09)
[2020-10-19] MEDS: GLIMEPIRIDE 2 MG TAB PO SCH (08:10)
[2020-10-19] MEDS: MULTIVITAMINS/MINERALS THERAP 1 TAB PO SCH (08:10)
[2020-10-19] MEDS: THIAMINE 100 MG TAB PO SCH (08:11)
[2020-10-19] MEDS: CREON-12 CAPSULE PO SCH ×3 (08:11→17:17)
[2020-10-19] MEDS: FOLIC ACID 1 MG TAB PO SCH (08:11)
[2020-10-19] MEDS ORDERED: MORPHINE 4 MG/ML 1ML VIAL/SYRINGE (J2270) IV PRN (08:15)
[2020-10-19] MEDS ORDERED: FOLIC ACID 1 MG TAB PO SCH (09:00)
[2020-10-19] MEDS: amLODIPine 10 MG TAB PO SCH (09:00)
[2020-10-19] MEDS ORDERED: MULTIVITAMINS/MINERALS THERAP 1 TAB PO SCH (09:00)
[2020-10-19] MEDS ORDERED: MIRALAX *UNIT DOSE* 17GM PACKET PO ONE (12:00)
--- NOTE | 2020-10-19 12:00 | IPNPDOC ---
Subjective Date Seen The patient was seen on 10/19/20. Subjective Chief Complaint/HPI Patient did well yesterday with full liquids and did not need IV morphine. Pain was controlled with percocet. Last night diet was advanced to regular and pain had increased . This morning after a regular breakfast pain was so bad that he needed IV morphine again. He was put back to full liquids again. Having flatus but no bowel movement yet. Objective Physical Examination General Exam: Positive: Alert, Cooperative, No Acute Distress Eye Exam: Positive: PERRLA, Conjunctiva & lids normal, EOMI; Negative: Sclera icteric ENT Exam: Positive: Atraumatic, Mucous membr. moist/pink, Pharynx Normal Neck Exam: Positive: Supple; Negative: JVD, thyromegaly Chest Exam: Positive: Clear to auscultation, Normal air movement Heart Exam: Positive: Rate Normal, Regular Rhythm, Normal S1, Normal S2; Negative: Murmurs, Rubs Abdomen Exam: Positive: Normal bowel sounds, Soft, Tenderness (in kinjal epigastrium and periumbilical area); Negative: Hepatospenomegaly Extremity Exam: Positive: Normal pulses; Negative: Clubbing, Cyanosis, Edema Skin Exam: Positive: Nl turgor and temperature; Negative: Breakdown, Lesion Assessment /Plan Assessment 30 year old male with PMH of chronic pancreatitis, gastritis, GERD, Diabetes, hypertesnion presented to the ED with 2 days h/o abdominal pain , nausea and vomiting. The josselin is located int eh epigastrium and the periumbilical area, sharp constant in nature about 8/10 , radiating straight tot he back. he needed 10 mg of morphine in the ED. He admits that he drank heavily 2 days ago about 8 to 10 drinks and the pain started after that. He says he has cut down on his drinking but still drinks heavily about 1-2 times a month. He has chronic ab dominal pain which he manages with ibuprofen 400 to 800 mg about 4 to 5 times a week. He denies buying any pain meds from the streets. He denies using any street drugs. CT abdomen showed chronic swelling and inflammation of the head and neck of pancreas unchanged from the last 3 CT scans. His lipase was not elevated. He was admitted for flare of chronic pancreatitis and possibly acute gastritis. Flare of Chronic pancreatitis with chronically swollen and inflamed head of pancreas has had multiple attacks of acute pancreatitis due to alcohol. Now he has chronic pancreatitis which has a flare due the the alcohol binge 2 days prior to admission pain control with Morphine and percocet. continue Creon when eating orally Full liquids. Diabetes continue glimiperide Lispro as per sliding scale will hold metformin. Reflux esophagitis Pantoprazole bid Hypertension amlodipine, lisinopril. Migraine no issues at this time HLD statin Alcohol abuse does intermittent binges. counselling about stopping. Ciwa protocol. Dehydration will continue ivf Hypercalcemia previous work up neg this is due to dehydration continue IVF Hypokalemia replaced. Plan/VTE VTE Prophylaxis Ordered?: Yes VS, I&O, 24H, Fishbone Vital Signs/I&O Vital Signs Date Time Temp Pulse Resp B/P (MAP) Pulse Ox O2 Delivery O2 Flow Rate FiO2 10/19/20 11:45 18 10/19/20 09:00 84 102/60 10/19/20 06:00 97.3 99 10/19/20 04:49 Room Air I&O- Last 24 Hours up to 6 AM 10/19/20 06:00 Intake Total 4370 ml Output Total 3575 ml Balance 795 ml Laboratory Data 24H LABS Laboratory Tests 2 10/18/20 16:20: Bedside Glucose (Misc Panel) 88 10/18/20 20:34: Bedside Glucose (Misc Panel) 127H 10/19/20 05:34: Immature Granulocyte % (Auto) 0.3, Neutrophils (%) (Auto) 71.2H, Lymphocytes (%) (Auto) 19.0L, Monocytes (%) (Auto) 7.2H, Eosinophils (%) (Auto) 1.9, Basophils (%) (Auto) 0.4, Neutrophils # (Auto) 6.7, Lymphocytes # (Auto) 1.8, Monocytes # (Auto) 0.7, Eosinophils # (Auto) 0.2, Basophils # (Auto) 0.0, Nucleated Red Blood Cells % (auto) 0.0, Anion Gap 5L, Glomerular Filtration Rate > 60.0, Calcium Level 8.7, Lipase 149 CBC/BMP Laboratory Tests 10/19/20 05:34 LEROY CHAN MD Oct 19, 2020 12:00
[2020-10-19 14:00] VITALS: BP 139/86
[2020-10-19] MEDS: MORPHINE 4 MG/ML 1ML VIAL/SYRINGE (J2270) IV PRN (16:39)
[2020-10-19] MEDS: SIMVASTATIN 40 MG TAB PO SCH (20:46)
[2020-10-19] MEDS: DOCUSATE SODIUM 100MG CAPSULE PO SCH (20:46)
[2020-10-19] MEDS: lisinopriL 5 MG TAB PO SCH (20:47)
[2020-10-19 22:00] VITALS: BP 151/88
[2020-10-20 06:00] VITALS: BP 140/84
[2020-10-20 06:02] LABS: BASO % 0.4 % (0.0-1.0); EOS # 0.2 10^3/uL (0.0-0.5); EOS % 2.3 % (0.0-3.0); HEMATOCRIT 42.1 % (42.0-52.0); HEMOGLOBIN 13.9 g/dl (13.5-17.5); LYMPH # 1.9 10^3/uL (1.5-5.0); LYMPH % 24.3 % (24.0-44.0); MEAN CORPUSCULAR VOLUME 90.7 fl (80.0-96.0); MONO # 0.7 10^3/uL (0.0-0.8); NEUTROPHILS % 63.6 % (36.0-66.0); PLATELET COUNT, AUTOMATED 193 10^3/uL (150-450); RED BLOOD COUNT 4.64 10^6/uL (4.30-6.10); WHITE BLOOD COUNT 7.8 10^3/uL (4.0-10.0)
[2020-10-20 06:24] LABS: BLOOD UREA NITROGEN 7 MG/DL (7-18); CALCIUM LEVEL 9.3 MG/DL (8.5-10.1); CARBON DIOXIDE LEVEL 28 MEQ/L (21-32); CHLORIDE LEVEL 101 MEQ/L (98-107); CREATININE FOR GFR 0.66 MG/DL (0.70-1.30); GLOMERULAR FILTRATION RATE > 60.0 (>60); GLUCOSE, FASTING 92 MG/DL (70-100); LIPASE 141 U/L (73-393); POTASSIUM SERUM 3.6 MEQ/L (3.5-5.1); SODIUM LEVEL 137 MEQ/L (136-145)
[2020-10-20] MEDS: HumaLOG INSULIN (NovoLOG) PER UNIT SC SCH ×4 (07:30→20:54)
[2020-10-20] MEDS: MULTIVITAMINS/MINERALS THERAP 1 TAB PO SCH (09:03)
[2020-10-20] MEDS: amLODIPine 5 MG TAB PO SCH (09:03)
[2020-10-20] MEDS: CREON-12 CAPSULE PO SCH ×3 (09:04→17:29)
[2020-10-20] MEDS: FOLIC ACID 1 MG TAB PO SCH (09:04)
[2020-10-20] MEDS: DOCUSATE SODIUM 100MG CAPSULE PO SCH ×2 (09:04→20:53)
[2020-10-20] MEDS: PANTOPRAZOLE 40MG TAB (PROTONIX) PO SCH (09:04)
[2020-10-20] MEDS: ENOXAPARIN 40MG/0.4ML SYRINGE (J1650 PER 10MG) SC SCH (09:05)
[2020-10-20] MEDS: PERCOCET 5MG/325MG TAB PO PRN ×3 (09:05→22:11)
[2020-10-20] MEDS: MORPHINE 4 MG/ML 1ML VIAL/SYRINGE (J2270) IV PRN ×2 (11:24→17:30)
[2020-10-20 14:00] VITALS: BP 123/73
[2020-10-20] MEDS: SIMVASTATIN 40 MG TAB PO SCH (20:52)
[2020-10-20] MEDS: lisinopriL 5 MG TAB PO SCH (20:53)
[2020-10-20 22:00] VITALS: BP 126/75
[2020-10-21] MEDS: MORPHINE 4 MG/ML 1ML VIAL/SYRINGE (J2270) IV PRN (00:04)
[2020-10-21 06:00] VITALS: BP 117/70
[2020-10-21 06:58] LABS: BASO % 0.6 % (0.0-1.0); EOS # 0.3 10^3/uL (0.0-0.5); EOS % 4.5 % (0.0-3.0); HEMATOCRIT 41.6 % (42.0-52.0); HEMOGLOBIN 13.6 g/dl (13.5-17.5); LYMPH # 2.4 10^3/uL (1.5-5.0); LYMPH % 36.6 % (24.0-44.0); MEAN CORPUSCULAR HEMOGLOBIN 30.1 pg (27.0-33.0); MEAN CORPUSCULAR HGB CONC 32.7 g/dl (32.0-36.5); MONO # 0.6 10^3/uL (0.0-0.8); MONO % 9.5 % (0.0-5.0); NEUTROPHILS # 3.2 10^3/uL (1.5-8.5); NEUTROPHILS % 48.5 % (36.0-66.0); PLATELET COUNT, AUTOMATED 208 10^3/uL (150-450); RED BLOOD COUNT 4.52 10^6/uL (4.30-6.10); WHITE BLOOD COUNT 6.6 10^3/uL (4.0-10.0)
[2020-10-21 07:25] LABS: BLOOD UREA NITROGEN 9 MG/DL (7-18); CALCIUM LEVEL 8.6 MG/DL (8.5-10.1); CARBON DIOXIDE LEVEL 29 MEQ/L (21-32); CHLORIDE LEVEL 102 MEQ/L (98-107); CREATININE FOR GFR 0.78 MG/DL (0.70-1.30); GLOMERULAR FILTRATION RATE > 60.0 (>60); GLUCOSE, FASTING 117 MG/DL (70-100); LIPASE 155 U/L (73-393); POTASSIUM SERUM 3.6 MEQ/L (3.5-5.1); SODIUM LEVEL 138 MEQ/L (136-145)
--- NOTE | 2020-10-21 07:51 | IPN ---
PROGRESS NOTE DATE: 10/17/2020 SUBJECTIVE: This patient was admitted with another episode of alcoholic pancreatitis. He tried clear liquids yesterday and he had a lot of abdominal pain overnight. OBJECTIVE: VITAL SIGNS: Afebrile. Vital signs stable with blood pressure 142/85. LUNGS: Clear. HEART: Regular rhythm. ABDOMEN: Soft. Slightly tender in the epigastric area, nondistended, and bowel sounds present. EXTREMITIES: No clubbing, cyanosis, or edema. LABORATORY DATA: CBC is unremarkable. Electrolytes unremarkable. Renal functions normal. ASSESSMENT/PLAN: 1. Alcoholic pancreatitis. Continue his pain relief. Slowly advance. Progress is slow, which tends to be his pattern recently. 2. Hypertension. Blood pressure is well-controlled. Continue on amlodipine 5 mg daily and lisinopril 5 mg daily. 3. Alcoholism. He is on folic acid supplementation. He is not having any acute withdrawal at this point. 4. Hyperlipidemia. Continue his simvastatin 40 mg daily.
[2020-10-21 08:41] VITALS: BP 117/70
[2020-10-21] MEDS: PANTOPRAZOLE 40MG TAB (PROTONIX) PO SCH (08:41)
[2020-10-21] MEDS: amLODIPine 5 MG TAB PO SCH (08:41)
[2020-10-21] MEDS: HumaLOG INSULIN (NovoLOG) PER UNIT SC SCH ×3 (08:42→17:30)
[2020-10-21] MEDS: FOLIC ACID 1 MG TAB PO SCH (08:42)
[2020-10-21] MEDS: MULTIVITAMINS/MINERALS THERAP 1 TAB PO SCH (08:42)
[2020-10-21] MEDS: DOCUSATE SODIUM 100MG CAPSULE PO SCH (08:42)
[2020-10-21] MEDS: CREON-12 CAPSULE PO SCH ×3 (08:42→17:35)
[2020-10-21] MEDS: ENOXAPARIN 40MG/0.4ML SYRINGE (J1650 PER 10MG) SC SCH (08:43)
[2020-10-21] MEDS: PERCOCET 5MG/325MG TAB PO PRN (08:47)
--- NOTE | 2020-10-21 09:01 | IPNPDOC ---
Text Note Date of Service The patient was seen on 10/21/20. NOTE Subjective: Patient seen and examined at bedside. Doing well overnight. Tolerated dinner without issues. Wants to go home and be off pain meds if possible. Endorses that he drank 3L vodka prior to admission. If he tolerates his lunch today without issues, and pain continues to be controlled, he may return home. Objective: Constitutional: Appears well. Non-distressed HEENT: PEERLA, EOMI Cardiovascular: Heart sounds 1+ 2 present. No added sounds, murmurs, regurgitations Lungs: Clear to auscultation bilaterally. No wheezing/crackles Abdomen: mild epigastric and RUQ tenderness to palpation. Naylor's negative. Non-distended. BS present Extremities: No pitting edema Neurological: No FND. AO x 3 Assessment/Plan: 30 year old male with PMH of chronic pancreatitis, gastritis, GERD, Diabetes, hypertesnion presented to the ED with 2 days h/o abdominal pain, nausea and vomiting. CT abdomen showed chronic swelling and inflammation of the head and neck of pancreas unchanged from the last 3 CT scans. His lipase was not elevated. He was admitted for flare of chronic pancreatitis and possibly acute gastritis. #Acute on Chronic Pancreatitis -As per patient, has about 1 attack per year. -CT scan on 10/16 showing some mild inflammation around pancreas -Lipase WNL likely 2/2 chronic pancreatitis -Diet advanced throughout hospital stay. Currently tolerating regular diet -Pain well controlled with percocets + morphine for breakthrough. Patient wants pain meds reduced and/or DC/ed on 10/21 and to return home. He is okay with a few pain meds to take outpatient -On Creon therapy -Takes ibuprofen at home about 4 x per week to help with pain. Consider Celecoxib in future if worsens #T2DM -Home medications: Metformin 500 daily + Glimiperide 2 mg daily -Hospital regiment: ISS -Sugars well controlled in the low 100s #GERD -C/W protonix 40 daily #HTN -Currently normotensive -C/W Lisinopril 5 qpm, and norvasc 5 daily #HLD -C/W Simvastatin 40 #Hx of Alcohol abuse -As per patient drank -CIWA protocol. Not currently withdrawing while in hospital Diet: regular Dispo: Home DVT PPX: Lovenox 40 daily Case discussed with Dr. Brianna Galindo MD Hospitalist Resident Giovanni Alcantara, have independently examined this patient and performed my own physical exam, as well as reviewed the documentation and edited where necessary. I have discussed in detail with the resident / student the findings and plan of treatment as documented by the resident / student and edited their note. I agree with their findings and treatment plan and have edited their documentation. I will continue to follow the patient during this hospital stay. VS,Fishbone, I+O VS, Fishbone, I+O Laboratory Tests 10/21/20 06:44 Vital Signs Date Time Temp Pulse Resp B/P (MAP) Pulse Ox O2 Delivery O2 Flow Rate FiO2 10/21/20 08:47 16 10/21/20 08:41 72 117/70 10/21/20 06:00 96.5 96 Room Air I&O- Last 24 Hours up to 6 AM 10/21/20 06:00 Intake Total 1680 ml Output Total 500 ml Balance 1180 ml NBA GALINDO M.D.,PGY-2 Oct 21, 2020 09:01 YUMIKO SINGLETARY MD Oct 22, 2020 15:26
[2020-10-21] MEDS ORDERED: ACETAMINOPHEN TAB 650MG DOSE (2X325MG) PO PRN (12:00)
[2020-10-21 14:00] VITALS: BP 151/91
[2020-10-21] MEDS ORDERED: PERCOCET 5MG/325MG TAB PO PRN (14:45)
[2020-10-21] MEDS ORDERED: ACET1TAB55 PO ×2 (18:24→18:29)
[2020-10-21] MEDS ORDERED: DOK1CAP7 PO (18:24)
[2020-10-21] MEDS ORDERED: FOLI1TAB11 PO (18:24)
[2020-10-21] MEDS ORDERED: PERCOCET PO (18:24)
[2020-10-21] MEDS ORDERED: VITMTA PO (18:24)
[2020-10-21] MEDS ORDERED: IBUP-1022 PO (18:27)
--- NOTE | 2020-10-21 22:22 | DS.PDOC ---
Discharge Summary General Date of Admission Oct 17, 2020 at 12:24 Date of Discharge 10/21/2020 Discharge Summary PROCEDURES PERFORMED DURING STAY: None ADMITTING DIAGNOSES: 1. Acute on Chronic Pancreatitis DISCHARGE DIAGNOSES: 1. Acute on Chronic Pancreatitis COMPLICATIONS/CHIEF COMPLAINT: Chronic Alcoholic Pancreatitis,Gastritis. HISTORY OF PRESENT ILLNESS: 30 year old male with PMH of chronic pancreatitis, gastritis, GERD, Diabetes, hypertesnion presented to the ED with 2 days h/o abdominal pain , nausea and vomiting. The josselin is located int eh epigastrium and the periumbilical area, sharp constant in nature about 8/10 , radiating straight tot he back. he needed 10 mg of morphine in the ED. He admits that he drank heavily 2 days ago about 8 to 10 drinks and the pain started after that. He says he has cut down on his drinking but still drinks heavily about 1-2 times a month. He has chronic abdominal pain which he manages with ibuprofen 400 to 800 mg about 4 to 5 times a week. He denies buying any pain meds from the streets. He denies using any street drugs. CT abdomen showed chronic swelling and inflammation of the head and neck of pancreas unchanged from the last 3 CT scans. His lipase was not elevated. He was admitted for flare of chronic pancreatitis and possibly acute gastritis. HOSPITAL COURSE: 30 year old male with PMH of chronic pancreatitis, gastritis, GERD, Diabetes, hypertension presented to the ED with 2 days h/o abdominal pain, nausea and vomiting. CT abdomen showed chronic swelling and inflammation of the head and neck of pancreas unchanged from the last 3 CT scans. His lipase was not elevated suggesting chronic pancreatitis. He was admitted for flare of chronic pancreatitis and possibly acute gastritis. During hospital admission, patients pain was managed with opioid and non-opioid medication which was titrated down. Diet was advanced and fluids given in the meantime. Patient was eventually able to tolerate regular diet on the day before discharge. He was discharged with tylenol and ibuprofen with instructions to take both together if need be to ac hieve synergistic pain control. DISCHARGE MEDICATIONS: Please see below. ALLERGIES: Please see below. PHYSICAL EXAMINATION ON DISCHARGE: Constitutional: Appears well. Non-distressed HEENT: PEERLA, EOMI Cardiovascular: Heart sounds 1+ 2 present. No added sounds, murmurs, regurgitati ons Lungs: Clear to auscultation bilaterally. No wheezing/crackles Abdomen: mild epigastric and RUQ tenderness to palpation. Naylor's negative. Non-distended. BS present Extremities: No pitting edema Neurological: No FND. AO x 3 LABORATORY DATA: Please see below. IMAGING: CT scan showing signs of inflammation around pancreas PROGNOSIS: good ACTIVITY: As tolerated DIET: as tolerated DISCHARGE PLAN: To follow up with PCP within 5 days of discharge DISPOSITION: 01 Home, Self-Care. DISCHARGE INSTRUCTIONS: 1. Please follow up with PCP within 5 days of discharge 2. Please take medications exactly as prescribed 3. Avoid drinking alcohol entirely 4. You may eat as tolerated ITEMS TO FOLLOWUP ON ON OUTPATIENT: 1. resolution of abdominal pain DISCHARGE CONDITION: stable TIME SPENT ON DISCHARGE: Greater than 20 minutes. Vital Signs/I&Os Vital Signs Date Time Temp Pulse Resp B/P (MAP) Pulse Ox O2 Delivery O2 Flow Rate FiO2 10/21/20 16:15 16 10/21/20 14:00 97.9 88 151/91 (111) 99 Room Air I&O- Last 24 Hours up to 6 AM 10/21/20 07:00 Intake Total 1680 ml Output Total 500 ml Balance 1180 ml Laboratory Data Labs 24H Laboratory Tests 2 10/21/20 06:44: Immature Granulocyte % (Auto) 0.3, Neutrophils (%) (Auto) 48.5, Lymphocytes (%) (Auto) 36.6, Monocytes (%) (Auto) 9.5H, Eosinophils (%) (Auto) 4.5H, Basophils (%) (Auto) 0.6, Neutrophils # (Auto) 3.2, Lymphocytes # (Auto) 2.4, Monocytes # (Auto) 0.6, Eosinophils # (Auto) 0.3, Basophils # (Auto) 0.0, Nucleated Red Blood Cells % (auto) 0.0, Anion Gap 7L, Glomerular Filtration Rate > 60.0, Calcium Level 8.6, Lipase 155 10/21/20 11:29: Bedside Glucose (Misc Panel) 181H 10/21/20 16:53: Bedside Glucose (Misc Panel) 118H CBC/BMP Laboratory Tests 10/21/20 06:44 FSBS Laboratory Tests Test 10/21/20 11:29 10/21/20 16:53 Range/Units Bedside Glucose (Misc Panel) 181 118 70-105 MG/DL Discharge Medications Scheduled Amlodipine Besylate (Amlodipine Besylate) 10 Mg Tablet, 10 MG PO DAILY, (Reported) Docusate Sodium (Dok) 100 Mg Capsule, 100 MG PO BID Folic Acid (Folic Acid) 1 Mg Tablet, 1 MG PO DAILY Glimepiride (Glimepiride) 2 Mg Tablet, 2 MG PO DAILY, (Reported) Ibuprofen (Ibuprofen) 600 Mg Tablet, 600 MG PO TID for pain with food Insulin Glargine,Hum.rec.anlog (Basaglar Kwikpen U-100) 100 Unit/1 Ml Insuln.pen, 10 UNIT SC BID, (Reported) Lipase/Protease/Amylase (Creon Dr 6,000 Units Capsule) 1 Each Capsule.dr, 6,000 UNIT PO WM, (Reported) Lisinopril (Lisinopril) 5 Mg Tablet, 5 MG PO QPM, (Reported) Metformin HCl (Metformin HCl ER) 500 Mg Tab.er.24h, 500 MG PO DAILY, (Reported) Multivitamins (Thera M Plus Tablet) 1 Each Tablet, 1 TAB PO DAILY Pantoprazole Sodium (Pantoprazole Sodium) 40 Mg Tablet.dr, 40 MG PO DAILY, (Reported) Simvastatin (Simvastatin) 40 Mg Tablet, 40 MG PO QPM, (Reported) Scheduled PRN Acetaminophen (Acetaminophen) 325 Mg Tablet, 650 MG PO Q6H PRN for PAIN LEVEL 5- 7 Aspirin/Acetaminophen/Caffeine (Excedrin Migraine Caplet) 1 Each Tablet, 2 TAB PO BID PRN for MIGRAINE, (Reported) Tizanidine HCl (Tizanidine HCl) 4 Mg Tablet, 4 MG PO TID PRN for MUSCLE SPASMS, (Reported) Allergies Coded Allergies: No Known Allergies (Unverified , 11/07/17) GME ATTESTATION GME ATTESTATION My faculty preceptor for this patient encounter was physically present during the encounter and was fully available. All aspects of the patient interview, examination, medical decision making process, and medical care plan development were reviewed and approved by the faculty preceptor. The faculty preceptor is aware and concurs with the plan as stated in the body of this note and will attest to such by his/her cosignature. ATTENDING NOTE I, A Yousef, have independently examined this patient and performed my own physical exam, as well as reviewed the documentation and edited where necessary. I have discussed in detail with the resident / student the findings and plan of treatment as documented by the resident / student and edited their note. I agree with their findings and treatment plan and have edited their documentation. I will continue to follow the patient during this hospital stay. NBA CANO M.D.,PGY-2 Oct 21, 2020 22:22 YUMIKO SINGLETARY MD Oct 22, 2020 17:34
== END 2020-10-21 18:47 | disposition home or self-care (01) | DRG 282 ==
LOC: M ED 03:40 → M ED INP 03:41 → ENRESERV 11:30 → M MSPAV 12:24 → OBSVTOIN 10-17 12:24
PROVIDERS: ADMIT Internal Medicine Nephrology; ATTEND Family Medicine
DX: K85.20 Alcohol induced acute pancreatitis without necrosis or infection (principal); I10 Essential (primary) hypertension; K29.70 Gastritis, unspecified, without bleeding; K21.00 Gastro-esophageal reflux disease with esophagitis, without bleeding; E11.9 Type 2 diabetes mellitus without complications; G43.909 Migraine, unspecified, not intractable, without status migrainosus; E87.6 Hypokalemia; E78.5 Hyperlipidemia, unspecified; F10.20 Alcohol dependence, uncomplicated; E55.9 Vitamin D deficiency, unspecified; E86.0 Dehydration; Z79.4 Long term (current) use of insulin; Z79.899 Other long term (current) drug therapy; Z20.828 Contact with and (suspected) exposure to other viral communicable diseases

== ENCOUNTER → 2021-02-26 | Outpatient (REF) | payer OTHER ==
[~2021-02-26] MED LIST changes: +DOK1CAP7 PO; +IBUP-1022 PO; +LISI-898 PO; +LISI10TA22 PO; -LISI10TA4 PO
[2021-02-26 13:31] LABS: BASO # 0.1 10^3/uL (0.0-0.2); BASO % 0.6 % (0.0-1.0); EOS # 0.4 10^3/uL (0.0-0.5); EOS % 3.8 % (0.0-3.0); HEMATOCRIT 44.5 % (42.0-52.0); HEMOGLOBIN 14.7 g/dl (13.5-17.5); LYMPH # 3.6 10^3/uL (1.5-5.0); LYMPH % 35.3 % (24.0-44.0); MEAN CORPUSCULAR HEMOGLOBIN 30.6 pg (27.0-33.0); MEAN CORPUSCULAR VOLUME 92.5 fl (80.0-96.0); MONO # 0.7 10^3/uL (0.0-0.8); MONO % 6.4 % (2.0-8.0); NEUTROPHILS # 5.5 10^3/uL (1.5-8.5); NEUTROPHILS % 53.7 % (36.0-66.0); PLATELET COUNT, AUTOMATED 223 10^3/uL (150-450); RED BLOOD COUNT 4.81 10^6/uL (4.30-6.10); WHITE BLOOD COUNT 10.3 10^3/uL (4.0-10.0)
[2021-02-26 15:31] LABS: ALBUMIN 4.4 GM/DL (3.2-5.2); ALT/SGPT 19 U/L (12-78); BILIRUBIN,TOTAL 0.4 MG/DL (0.2-1.0); BLOOD UREA NITROGEN 13 MG/DL (7-18); CALCIUM LEVEL 9.5 MG/DL (8.5-10.1); CARBON DIOXIDE LEVEL 28 MEQ/L (21-32); CHLORIDE LEVEL 104 MEQ/L (98-107); CHOLESTEROL LEVEL 123 MG/DL (<200); CPK CREATINE PHOSPHOKINASE 55 U/L (39-308); CREATININE FOR GFR 0.89 MG/DL (0.70-1.30); FERRITIN 70 NG/ML (26-388); GLOMERULAR FILTRATION RATE > 60.0 (>60); GLUCOSE, FASTING 158 MG/DL (70-100); HDL CHOLESTEROL 41 MG/DL (>40); IRON (FE) 56 UG/DL (65-175); LDL CHOLESTEROL 35 MG/DL (<100); LIPASE 47 U/L (73-393); NON-HDL-C 82 MG/DL; POTASSIUM SERUM 3.5 MEQ/L (3.5-5.1); SODIUM LEVEL 140 MEQ/L (136-145); TOTAL PROTEIN 7.7 GM/DL (6.4-8.2); TRIGLYCERIDES LEVEL 234 MG/DL (<150); VITAMIN B12 LEVEL 799 PG/ML (247-911)
[2021-02-26 17:20] LABS: HEMOGLOBIN A1c 6.4 %
== END ==
LOC: M SFHCPLAZ 11:34
PROVIDERS: ATTEND Physician Assistant Medical
DX: I10 Essential (primary) hypertension (principal); E78.5 Hyperlipidemia, unspecified; E11.65 Type 2 diabetes mellitus with hyperglycemia; Z87.19 Personal history of other diseases of the digestive system; D64.9 Anemia, unspecified

== ENCOUNTER → 2021-06-04 | Outpatient (CLI) | payer OTHER ==
[~2021-06-04] MED LIST changes: +ACET-897 PO; +AMLO2.5T3; +AMLO2.5T3 PO; +DOK1CAP4 PO; -DOK1CAP7 PO; +DOXY-443 PO; -DOXY100C37 PO; +IBUP-1729 PO; -LISI-898 PO; +LISI5TAB11 PO; +TIZA10TA PO; -TIZA4TAB4 PO
[2021-06-04 14:19] LABS: BASO # 0.1 10^3/uL (0.0-0.2); BASO % 0.6 % (0.0-1.0); EOS # 0.4 10^3/uL (0.0-0.5); HEMATOCRIT 48.2 % (42.0-52.0); HEMOGLOBIN 15.7 g/dl (13.5-17.5); LYMPH # 3.4 10^3/uL (1.5-5.0); LYMPH % 33.4 % (24.0-44.0); MEAN CORPUSCULAR HEMOGLOBIN 30.8 pg (27.0-33.0); MEAN CORPUSCULAR HGB CONC 32.6 g/dl (32.0-36.5); MEAN CORPUSCULAR VOLUME 94.7 fl (80.0-96.0); MONO # 0.8 10^3/uL (0.0-0.8); MONO % 8.2 % (2.0-8.0); NEUTROPHILS # 5.5 10^3/uL (1.5-8.5); NEUTROPHILS % 53.6 % (36.0-66.0); PLATELET COUNT, AUTOMATED 240 10^3/uL (150-450); RED BLOOD COUNT 5.09 10^6/uL (4.30-6.10); WHITE BLOOD COUNT 10.2 10^3/uL (4.0-10.0)
== END ==
LOC: M PLALAB 10:39
PROVIDERS: ATTEND Physician Assistant Medical
DX: I10 Essential (primary) hypertension (principal); D64.9 Anemia, unspecified

== ENCOUNTER → 2021-10-01 | Outpatient (CLI) | payer OTHER ==
[~2021-10-01] MED LIST changes: -ACET-897 PO; -AMLO2.5T3; -AMLO2.5T3 PO; -IBUP-1729 PO; +LISI-898 PO; -LISI5TAB11 PO; -TIZA10TA PO; +TIZA4TAB4 PO
[2021-10-01 13:15] LABS: BASO # 0.1 10^3/uL (0.0-0.2); BASO % 0.6 % (0.0-1.0); EOS # 0.5 10^3/uL (0.0-0.5); EOS % 4.9 % (0.0-3.0); HEMATOCRIT 46.2 % (42.0-52.0); HEMOGLOBIN 15.4 g/dl (13.5-17.5); LYMPH # 3.7 10^3/uL (1.5-5.0); LYMPH % 39.2 % (24.0-44.0); MEAN CORPUSCULAR HEMOGLOBIN 30.6 pg (27.0-33.0); MEAN CORPUSCULAR HGB CONC 33.3 g/dl (32.0-36.5); MEAN CORPUSCULAR VOLUME 91.8 fl (80.0-96.0); MONO # 0.8 10^3/uL (0.0-0.8); MONO % 8.1 % (2.0-8.0); NEUTROPHILS # 4.4 10^3/uL (1.5-8.5); PLATELET COUNT, AUTOMATED 261 10^3/uL (150-450); RED BLOOD COUNT 5.03 10^6/uL (4.30-6.10); WHITE BLOOD COUNT 9.5 10^3/uL (4.0-10.0)
[2021-10-01 14:16] LABS: HEMOGLOBIN A1c 6.3 %
[2021-10-01 14:21] LABS: FERRITIN 28 NG/ML (26-388); IRON (FE) 114 UG/DL (65-175); LIPASE 34 U/L (73-393)
== END ==
LOC: M PLALAB 11:21
PROVIDERS: ATTEND Physician Assistant Medical
DX: E11.65 Type 2 diabetes mellitus with hyperglycemia (principal); Z87.19 Personal history of other diseases of the digestive system; I10 Essential (primary) hypertension

== ENCOUNTER 2021-10-31 20:33 | Inpatient (IN) | payer OTHER ==
[~2021-10-31] VITALS: Ht 182.9 cm; Wt 84.8 kg
[~2021-10-31 20:33] MED LIST changes: -LISI-898 PO; +LISI5TAB11 PO; +TIZA10TA PO; -TIZA4TAB4 PO
[2021-10-31 20:56] LABS: BASO % 0.3 % (0.0-1.0); EOS % 0.2 % (0.0-3.0); HEMATOCRIT 45.4 % (42.0-52.0); HEMOGLOBIN 15.5 g/dl (13.5-17.5); LYMPH # 1.9 10^3/uL (1.5-5.0); MEAN CORPUSCULAR HEMOGLOBIN 30.6 pg (27.0-33.0); MEAN CORPUSCULAR HGB CONC 34.1 g/dl (32.0-36.5); MEAN CORPUSCULAR VOLUME 89.5 fl (80.0-96.0); MONO # 1.4 10^3/uL (0.0-0.8); NEUTROPHILS # 12.2 10^3/uL (1.5-8.5); NEUTROPHILS % 78.2 % (36.0-66.0); PLATELET COUNT, AUTOMATED 261 10^3/uL (150-450); RED BLOOD COUNT 5.07 10^6/uL (4.30-6.10); WHITE BLOOD COUNT 15.6 10^3/uL (4.0-10.0)
[2021-10-31 21:25] LABS: ALBUMIN 4.6 GM/DL (3.2-5.2); ALT/SGPT 37 U/L (12-78); BILIRUBIN,DIRECT 0.4 MG/DL (0.0-0.2); BILIRUBIN,TOTAL 1.2 MG/DL (0.2-1.0); BLOOD UREA NITROGEN 20 MG/DL (7-18); CALCIUM LEVEL 12.2 MG/DL (8.5-10.1); CARBON DIOXIDE LEVEL 34 MEQ/L (21-32); CHLORIDE LEVEL 89 MEQ/L (98-107); CREATININE FOR GFR 1.31 MG/DL (0.70-1.30); GLOMERULAR FILTRATION RATE > 60.0 (>60); GLUCOSE, FASTING 215 MG/DL (70-100); LIPASE 327 U/L (73-393); POTASSIUM SERUM 3.7 MEQ/L (3.5-5.1); SODIUM LEVEL 132 MEQ/L (136-145); TOTAL PROTEIN 7.9 GM/DL (6.4-8.2)
[2021-10-31] MEDS ORDERED: AMLO2.5T3 (23:59)
[2021-11-01] MEDS ORDERED: ISOVUE-370 76% 100ML VIAL As Ordered ONE (00:25)
[2021-11-01] MEDS ORDERED: NS 1,000 ML IV ONE (00:25)
[2021-11-01] MEDS ORDERED: ONDANSETRON 4MG/2ML VIAL IV ONE (00:25)
[2021-11-01] MEDS: MORPHINE 4 MG/ML 1ML VIAL/SYRINGE (J2270) IV PRN ×6 (00:47→18:55)
[2021-11-01 01:00] LABS: ETHYL ALCOHOL (ETHANOL) < 0.003 % (0.000-0.010)
[2021-11-01 01:42] LABS: RSV AMPLIFICATION NEGATIVE (NEGATIVE)
[2021-11-01] MEDS ORDERED: METOCLOPRAMIDE INJ 10MG/2ML VIAL (J2765 PER 1) IV ONE (02:15)
[2021-11-01] MEDS ORDERED: HOME MED LIST COMPLETE! XX SCH (04:20)
[2021-11-01] MEDS ORDERED: ACET-897 PO (04:20)
[2021-11-01] MEDS ORDERED: IBUP-1729 PO (04:20)
[2021-11-01] MEDS ORDERED: AMLO2.5T3 PO (04:20)
[2021-11-01] MEDS ORDERED: MAALOX 30 ML SUSP *UDC PO PRN (05:10)
[2021-11-01] MEDS ORDERED: MORPHINE 4 MG/ML 1ML VIAL/SYRINGE (J2270) IV PRN (05:10)
[2021-11-01] MEDS ORDERED: LORazepam 2 MG TAB PO PRN (05:10)
[2021-11-01] MEDS ORDERED: ACETAMINOPHEN TAB 650MG DOSE (2X325MG) PO PRN (05:10)
[2021-11-01] MEDS ORDERED: MOM 30ML SUSPENSION UDC PO PRN (05:10)
[2021-11-01] MEDS ORDERED: DEXTROSE 50% 50 ML SYRINGE IV PRN (05:15)
[2021-11-01] MEDS ORDERED: GLUCOSE 4GM CHEW TABLET PO PRN (05:15)
[2021-11-01] MEDS ORDERED: GLUCAGON INJ 1MG VIAL SC PRN (05:15)
[2021-11-01] MEDS: NS 1,000 ML IV SCH ×3 (05:40→21:40)
[2021-11-01 07:19] LABS: BASO % 0.1 % (0.0-1.0); EOS # 0.1 10^3/uL (0.0-0.5); EOS % 0.4 % (0.0-3.0); HEMATOCRIT 42.9 % (42.0-52.0); HEMOGLOBIN 14.5 g/dl (13.5-17.5); LYMPH # 2.3 10^3/uL (1.5-5.0); LYMPH % 15.9 % (24.0-44.0); MEAN CORPUSCULAR HEMOGLOBIN 30.5 pg (27.0-33.0); MEAN CORPUSCULAR HGB CONC 33.8 g/dl (32.0-36.5); MEAN CORPUSCULAR VOLUME 90.1 fl (80.0-96.0); MONO # 1.4 10^3/uL (0.0-0.8); MONO % 9.6 % (2.0-8.0); NEUTROPHILS # 10.5 10^3/uL (1.5-8.5); NEUTROPHILS % 73.6 % (36.0-66.0); PLATELET COUNT, AUTOMATED 233 10^3/uL (150-450); RED BLOOD COUNT 4.76 10^6/uL (4.30-6.10); WHITE BLOOD COUNT 14.3 10^3/uL (4.0-10.0)
[2021-11-01 07:40] LABS: BLOOD UREA NITROGEN 12 MG/DL (7-18); CALCIUM LEVEL 10.3 MG/DL (8.5-10.1); CARBON DIOXIDE LEVEL 35 MEQ/L (21-32); CHLORIDE LEVEL 95 MEQ/L (98-107); GLOMERULAR FILTRATION RATE > 60.0 (>60); GLUCOSE, FASTING 149 MG/DL (70-100); POTASSIUM SERUM 3.2 MEQ/L (3.5-5.1); SODIUM LEVEL 134 MEQ/L (136-145)
[2021-11-01 07:41] LABS: ALBUMIN 3.9 GM/DL (3.2-5.2); ALT/SGPT 32 U/L (12-78); BILIRUBIN,TOTAL 0.7 MG/DL (0.2-1.0); MAGNESIUM LEVEL 1.7 MG/DL (1.8-2.4); TOTAL PROTEIN 7.4 GM/DL (6.4-8.2)
[2021-11-01] MEDS: MULTIVITAMINS/MINERALS THERAP 1 TAB PO SCH (08:11)
[2021-11-01] MEDS: FOLIC ACID 1 MG TAB PO SCH (08:11)
[2021-11-01] MEDS: THIAMINE 100 MG TAB PO SCH ×2 (08:11→21:30)
[2021-11-01] MEDS: PERCOCET 5MG/325MG TAB PO PRN ×2 (08:12→13:54)
[2021-11-01] MEDS: HumaLOG INSULIN (NovoLOG) PER UNIT SC SCH ×4 (08:12→21:00)
[2021-11-01] MEDS: LEVEMIR (INSULIN DETEMIR) 1 UNITS/0.01ML SC SCH ×2 (08:13→21:37)
[2021-11-01] MEDS ORDERED: MORPHINE 2 MG/ML 1ML VIAL (J2270) IV ONE (11:20)
[2021-11-01] MEDS ORDERED: hydrALAZINE 20MG/ML 1ML VIAL (J0360 PER 20MG) IV ONE (11:20)
[2021-11-01] MEDS: KCL 10MEQ/100ML SWI (KRUN) 10 MEQ in IV 1 EA IV SCH ×4 (12:31→16:27)
[2021-11-01] MEDS: ONDANSETRON 4MG/2ML VIAL IV SCH ×2 (13:30→19:00)
[2021-11-01] MEDS ORDERED: MAG SULF 1GM/100ML (MAG RUN) 1 GM in IV 1 EA IV ONE (17:50)
[2021-11-01] MEDS: PANTOPRAZOLE 40MG TAB (PROTONIX) PO SCH (21:27)
[2021-11-01] MEDS: lisinopriL 5 MG TAB PO SCH (21:27)
[2021-11-01] MEDS: SIMVASTATIN 40 MG TAB PO SCH (21:31)
[2021-11-02] VITALS (8 sets, daily range): BP systolic 122–162; BP diastolic 80–96
[2021-11-02] MEDS: ONDANSETRON 4MG/2ML VIAL IV SCH ×4 (01:12→18:00)
[2021-11-02] MEDS: MORPHINE 4 MG/ML 1ML VIAL/SYRINGE (J2270) IV PRN ×6 (01:13→21:17)
[2021-11-02] MEDS: NS 1,000 ML IV SCH (03:49)
[2021-11-02 06:25] LABS: HEMATOCRIT 41.7 % (42.0-52.0); MEAN CORPUSCULAR HEMOGLOBIN 30.6 pg (27.0-33.0); MEAN CORPUSCULAR HGB CONC 33.6 g/dl (32.0-36.5); MEAN CORPUSCULAR VOLUME 91.2 fl (80.0-96.0); PLATELET COUNT, AUTOMATED 195 10^3/uL (150-450); RED BLOOD COUNT 4.57 10^6/uL (4.30-6.10); WHITE BLOOD COUNT 14.3 10^3/uL (4.0-10.0)
[2021-11-02 06:53] LABS: ALBUMIN 3.5 GM/DL (3.2-5.2); ALT/SGPT 23 U/L (12-78); BILIRUBIN,TOTAL 0.5 MG/DL (0.2-1.0); BLOOD UREA NITROGEN 9 MG/DL (7-18); CALCIUM LEVEL 9.3 MG/DL (8.5-10.1); CARBON DIOXIDE LEVEL 30 MEQ/L (21-32); CHLORIDE LEVEL 100 MEQ/L (98-107); CREATININE FOR GFR 0.63 MG/DL (0.70-1.30); GLOMERULAR FILTRATION RATE > 60.0 (>60); GLUCOSE, FASTING 99 MG/DL (70-100); POTASSIUM SERUM 3.4 MEQ/L (3.5-5.1); SODIUM LEVEL 137 MEQ/L (136-145); TOTAL PROTEIN 6.5 GM/DL (6.4-8.2)
[2021-11-02] MEDS: HumaLOG INSULIN (NovoLOG) PER UNIT SC SCH ×4 (07:20→21:00)
[2021-11-02] MEDS: FOLIC ACID 1 MG TAB PO SCH (08:12)
[2021-11-02] MEDS: PERCOCET 5MG/325MG TAB PO PRN ×4 (08:12→20:19)
[2021-11-02] MEDS: LEVEMIR (INSULIN DETEMIR) 1 UNITS/0.01ML SC SCH ×2 (08:12→21:00)
[2021-11-02] MEDS: MULTIVITAMINS/MINERALS THERAP 1 TAB PO SCH (08:12)
[2021-11-02] MEDS: THIAMINE 100 MG TAB PO SCH ×2 (08:12→20:17)
[2021-11-02] MEDS: KCL 20MEQ IN 0.45NS 1000ML 1,000 ML IV SCH ×2 (10:14→18:01)
[2021-11-02] MEDS: PANTOPRAZOLE 40MG TAB (PROTONIX) PO SCH (20:16)
[2021-11-02] MEDS: SIMVASTATIN 40 MG TAB PO SCH (20:16)
[2021-11-02] MEDS: lisinopriL 5 MG TAB PO SCH (20:17)
[2021-11-03] MEDS: KCL 20MEQ IN 0.45NS 1000ML 1,000 ML IV SCH ×4 (00:17→20:47)
[2021-11-03] MEDS: ONDANSETRON 4MG/2ML VIAL IV SCH ×4 (00:17→18:06)
[2021-11-03] MEDS: PERCOCET 5MG/325MG TAB PO PRN ×5 (00:26→20:46)
[2021-11-03 00:43] VITALS: BP 104/66
[2021-11-03] MEDS: MORPHINE 4 MG/ML 1ML VIAL/SYRINGE (J2270) IV PRN ×5 (01:59→21:44)
[2021-11-03 05:00] VITALS: BP 180/80
[2021-11-03 07:30] VITALS: BP 114/64
[2021-11-03] MEDS: HumaLOG INSULIN (NovoLOG) PER UNIT SC SCH ×4 (07:30→20:44)
[2021-11-03 08:04] LABS: HEMATOCRIT 39.4 % (42.0-52.0); HEMOGLOBIN 13.5 g/dl (13.5-17.5); MEAN CORPUSCULAR HGB CONC 34.3 g/dl (32.0-36.5); MEAN CORPUSCULAR VOLUME 90.4 fl (80.0-96.0); PLATELET COUNT, AUTOMATED 176 10^3/uL (150-450); RED BLOOD COUNT 4.36 10^6/uL (4.30-6.10)
[2021-11-03] MEDS: MULTIVITAMINS/MINERALS THERAP 1 TAB PO SCH (08:17)
[2021-11-03] MEDS: FOLIC ACID 1 MG TAB PO SCH (08:17)
[2021-11-03] MEDS: THIAMINE 100 MG TAB PO SCH ×2 (08:17→20:45)
[2021-11-03] MEDS: LEVEMIR (INSULIN DETEMIR) 1 UNITS/0.01ML SC SCH ×2 (08:17→20:44)
[2021-11-03 08:43] LABS: ALBUMIN 3.2 GM/DL (3.2-5.2); ALT/SGPT 20 U/L (12-78); BILIRUBIN,TOTAL 0.6 MG/DL (0.2-1.0); BLOOD UREA NITROGEN 7 MG/DL (7-18); CALCIUM LEVEL 9.1 MG/DL (8.5-10.1); CARBON DIOXIDE LEVEL 28 MEQ/L (21-32); CHLORIDE LEVEL 100 MEQ/L (98-107); CREATININE FOR GFR 0.72 MG/DL (0.70-1.30); GLOMERULAR FILTRATION RATE > 60.0 (>60); GLUCOSE, FASTING 98 MG/DL (70-100); MAGNESIUM LEVEL 1.9 MG/DL (1.8-2.4); POTASSIUM SERUM 3.5 MEQ/L (3.5-5.1); SODIUM LEVEL 137 MEQ/L (136-145); TOTAL PROTEIN 6.9 GM/DL (6.4-8.2)
[2021-11-03 14:00] VITALS: BP 159/96
[2021-11-03 20:45] VITALS: BP 138/88
[2021-11-03] MEDS: lisinopriL 5 MG TAB PO SCH (20:45)
[2021-11-03] MEDS: SIMVASTATIN 40 MG TAB PO SCH (20:45)
[2021-11-03] MEDS: PANTOPRAZOLE 40MG TAB (PROTONIX) PO SCH (20:45)
[2021-11-03 22:00] VITALS: BP 138/88
[2021-11-04] MEDS: ONDANSETRON 4MG/2ML VIAL IV SCH (00:11)
[2021-11-04] MEDS: PERCOCET 5MG/325MG TAB PO PRN ×4 (02:30→16:28)
[2021-11-04] MEDS: KCL 20MEQ IN 0.45NS 1000ML 1,000 ML IV SCH (02:30)
[2021-11-04] MEDS: MORPHINE 4 MG/ML 1ML VIAL/SYRINGE (J2270) IV PRN (04:13)
[2021-11-04] MEDS ORDERED: ONDANSETRON 4MG/2ML VIAL IV PRN (04:25)
[2021-11-04] MEDS ORDERED: MORPHINE 4 MG/ML 1ML VIAL/SYRINGE (J2270) IV PRN (04:25)
[2021-11-04 06:00] VITALS: BP 138/92
[2021-11-04 07:00] LABS: HEMATOCRIT 37.9 % (42.0-52.0); HEMOGLOBIN 12.6 g/dl (13.5-17.5); MEAN CORPUSCULAR HEMOGLOBIN 30.3 pg (27.0-33.0); MEAN CORPUSCULAR HGB CONC 33.2 g/dl (32.0-36.5); MEAN CORPUSCULAR VOLUME 91.1 fl (80.0-96.0); PLATELET COUNT, AUTOMATED 193 10^3/uL (150-450); RED BLOOD COUNT 4.16 10^6/uL (4.30-6.10); WHITE BLOOD COUNT 8.6 10^3/uL (4.0-10.0)
[2021-11-04 07:24] LABS: ALBUMIN 3.2 GM/DL (3.2-5.2); ALT/SGPT 18 U/L (12-78); BILIRUBIN,TOTAL 0.4 MG/DL (0.2-1.0); BLOOD UREA NITROGEN 6 MG/DL (7-18); CALCIUM LEVEL 9.4 MG/DL (8.5-10.1); CARBON DIOXIDE LEVEL 28 MEQ/L (21-32); CHLORIDE LEVEL 102 MEQ/L (98-107); CREATININE FOR GFR 0.74 MG/DL (0.70-1.30); GLOMERULAR FILTRATION RATE > 60.0 (>60); GLUCOSE, FASTING 121 MG/DL (70-100); POTASSIUM SERUM 3.9 MEQ/L (3.5-5.1); SODIUM LEVEL 136 MEQ/L (136-145); TOTAL PROTEIN 6.1 GM/DL (6.4-8.2)
[2021-11-04] MEDS: HumaLOG INSULIN (NovoLOG) PER UNIT SC SCH ×2 (08:28→12:27)
[2021-11-04] MEDS: MULTIVITAMINS/MINERALS THERAP 1 TAB PO SCH (08:29)
[2021-11-04] MEDS: FOLIC ACID 1 MG TAB PO SCH (08:29)
[2021-11-04] MEDS: LEVEMIR (INSULIN DETEMIR) 1 UNITS/0.01ML SC SCH (08:30)
[2021-11-04 14:00] VITALS: BP 146/95
[2021-11-04] MEDS ORDERED: PERCOCET PO (14:19)
[2021-11-04] MEDS ORDERED: ACET1TAB55 PO (14:19)
== END 2021-11-04 16:55 | disposition home or self-care (01) | DRG 282 ==
LOC: M ED 20:33 → M ED INP 20:34 → ENRESERV 11-01 23:49 → M MS5PR 11-02 00:33 → OBSVTOIN 11-02 10:47 → INTOOBSV 11-02 10:47
PROVIDERS: ADMIT Family Medicine; ATTEND Family Medicine
DX: K86.0 Alcohol-induced chronic pancreatitis (principal); E83.52 Hypercalcemia; E11.9 Type 2 diabetes mellitus without complications; K21.00 Gastro-esophageal reflux disease with esophagitis, without bleeding; I10 Essential (primary) hypertension; F10.188 Alcohol abuse with other alcohol-induced disorder; Z20.822 Contact with and (suspected) exposure to COVID-19; Z79.84 Long term (current) use of oral hypoglycemic drugs; Z79.899 Other long term (current) drug therapy; E78.5 Hyperlipidemia, unspecified

== ENCOUNTER → 2022-05-27 | Outpatient (CLI) | payer OTHER ==
[~2022-05-27] MED LIST changes: +ACET-897 PO; +AMLO2.5T3; +AMLO2.5T3 PO; +EXCETAB32 PO; -EXCETAB33 PO; +IBUP-1729 PO; +LEVO1TAB40 PO; -LEVO750T13 PO
[2022-05-27 13:09] LABS: BASO # 0.1 10^3/uL (0.0-0.2); BASO % 0.4 % (0.0-1.0); EOS # 0.5 10^3/uL (0.0-0.5); EOS % 3.1 % (0.0-3.0); HEMOGLOBIN 15.9 g/dl (13.5-17.5); LYMPH # 3.3 10^3/uL (1.5-5.0); LYMPH % 19.6 % (24.0-44.0); MEAN CORPUSCULAR HEMOGLOBIN 31.5 pg (27.0-33.0); MEAN CORPUSCULAR HGB CONC 33.1 g/dl (32.0-36.5); MEAN CORPUSCULAR VOLUME 95.2 fl (80.0-96.0); MONO # 0.7 10^3/uL (0.0-0.8); MONO % 4.2 % (2.0-8.0); NEUTROPHILS # 12.2 10^3/uL (1.5-8.5); NEUTROPHILS % 72.3 % (36.0-66.0); PLATELET COUNT, AUTOMATED 201 10^3/uL (150-450); RED BLOOD COUNT 5.04 10^6/uL (4.30-6.10); WHITE BLOOD COUNT 16.8 10^3/uL (4.0-10.0)
[2022-05-27 14:10] LABS: HEMOGLOBIN A1c 6.9 %
[2022-05-27 14:11] LABS: ALBUMIN 4.4 GM/DL (3.2-5.2); ALT/SGPT 37 U/L (12-78); BILIRUBIN,TOTAL 0.4 MG/DL (0.2-1.0); BLOOD UREA NITROGEN 13 MG/DL (7-18); CARBON DIOXIDE LEVEL 32 MEQ/L (21-32); CHLORIDE LEVEL 104 MEQ/L (98-107); CHOLESTEROL LEVEL 135 MG/DL (<200); CHOLESTEROL RISK RATIO 3.375 (<5); CREATININE FOR GFR 0.94 MG/DL (0.70-1.30); FERRITIN 119 NG/ML (26-388); GLOMERULAR FILTRATION RATE > 60.0 (>60); GLUCOSE, FASTING 102 MG/DL (70-100); HDL CHOLESTEROL 40 MG/DL (>40); IRON (FE) 135 UG/DL (65-175); LDL CHOLESTEROL 25 MG/DL (<100); LIPASE 42 U/L (73-393); NON-HDL-C 95 MG/DL; POTASSIUM SERUM 4.1 MEQ/L (3.5-5.1); SODIUM LEVEL 141 MEQ/L (136-145); TOTAL PROTEIN 7.9 GM/DL (6.4-8.2); TRIGLYCERIDES LEVEL 350 MG/DL (<150)
== END ==
LOC: M PLALAB 09:34
PROVIDERS: ATTEND Physician Assistant Medical
DX: D64.9 Anemia, unspecified (principal); E11.65 Type 2 diabetes mellitus with hyperglycemia; E78.5 Hyperlipidemia, unspecified; Z87.19 Personal history of other diseases of the digestive system; I10 Essential (primary) hypertension

== ENCOUNTER → 2022-11-27 | Outpatient (CLI) | payer OTHER ==
[2022-11-27 14:59] LABS: BASO # 0.1 10^3/uL (0.0-0.2); BASO % 0.5 % (0.0-1.0); EOS # 0.6 10^3/uL (0.0-0.5); EOS % 4.5 % (0.0-3.0); HEMATOCRIT 48.1 % (42.0-52.0); HEMOGLOBIN 15.4 g/dl (13.5-17.5); LYMPH % 31.4 % (24.0-44.0); MEAN CORPUSCULAR HEMOGLOBIN 30.5 pg (27.0-33.0); MEAN CORPUSCULAR VOLUME 95.2 fl (80.0-96.0); MONO # 0.9 10^3/uL (0.0-0.8); MONO % 7.2 % (2.0-8.0); NEUTROPHILS # 7.1 10^3/uL (1.5-8.5); NEUTROPHILS % 56.1 % (36.0-66.0); PLATELET COUNT, AUTOMATED 325 10^3/uL (150-450); RED BLOOD COUNT 5.05 10^6/uL (4.30-6.10); WHITE BLOOD COUNT 12.7 10^3/uL (4.0-10.0)
[2022-11-27 15:01] LABS: LIPASE 22 U/L (12-53)
[2022-11-27 15:02] LABS: IRON (FE) 114 UG/DL (65-175)
[2022-11-27 16:13] LABS: HEMOGLOBIN A1c 8.4 % (4.0-6.0)
== END ==
LOC: M PLALAB 09:10
PROVIDERS: ATTEND Physician Assistant Medical
DX: E11.65 Type 2 diabetes mellitus with hyperglycemia (principal); D64.9 Anemia, unspecified; Z87.19 Personal history of other diseases of the digestive system

== ENCOUNTER → 2023-03-27 | Outpatient (CLI) | payer OTHER ==
[~2023-03-27] MED LIST changes: +INSU100I6 SC; -LEVE1INJ5 SC
[2023-03-27 14:03] LABS: BASO # 0.1 10^3/uL (0.0-0.2); BASO % 0.7 % (0.0-1.0); EOS # 0.7 10^3/uL (0.0-0.5); EOS % 5.4 % (0.0-3.0); HEMATOCRIT 48.4 % (42.0-52.0); HEMOGLOBIN 15.9 g/dl (13.5-17.5); LYMPH # 3.6 10^3/uL (1.5-5.0); LYMPH % 28.8 % (24.0-44.0); MEAN CORPUSCULAR HEMOGLOBIN 30.9 pg (27.0-33.0); MEAN CORPUSCULAR HGB CONC 32.9 g/dl (32.0-36.5); MEAN CORPUSCULAR VOLUME 94.2 fl (80.0-96.0); MONO # 0.8 10^3/uL (0.0-0.8); MONO % 6.3 % (2.0-8.0); NEUTROPHILS # 7.4 10^3/uL (1.5-8.5); NEUTROPHILS % 58.4 % (36.0-66.0); PLATELET COUNT, AUTOMATED 296 10^3/uL (150-450); RED BLOOD COUNT 5.14 10^6/uL (4.30-6.10); WHITE BLOOD COUNT 12.7 10^3/uL (4.0-10.0)
[2023-03-27 14:20] LABS: HEMOGLOBIN A1c 6.6 % (4.0-6.0)
[2023-03-27 14:29] LABS: LIPASE 21 U/L (12-53)
[2023-03-27 14:33] LABS: ALBUMIN 4.4 G/DL (3.2-5.2); ALKALINE PHOSPHATASE 72 U/L (46-116); ALT/SGPT 26 U/L (7.0-40); AST/SGOT 16 U/L (<34); BILIRUBIN,TOTAL 0.3 MG/DL (0.3-1.2); BLOOD UREA NITROGEN 12 MG/DL (9-23); CALCIUM LEVEL 10.3 MG/DL (8.5-10.1); CARBON DIOXIDE LEVEL 31 MMOL/L (20-31); CHLORIDE LEVEL 105 MMOL/L (98-107); CHOLESTEROL LEVEL 141 MG/DL (<200); CHOLESTEROL RISK RATIO 3.66 (<5); CREATININE FOR GFR 0.86 MG/DL (0.70-1.30); GLOMERULAR FILTRATION RATE > 60.0 (>60); GLUCOSE, FASTING 119 MG/DL (60-100); HDL CHOLESTEROL 38.5 MG/DL (>40); LDL CHOLESTEROL 74.5 MG/DL (<100); NON-HDL-C 102.5 MG/DL; POTASSIUM SERUM 4.1 MMOL/L (3.5-5.1); SODIUM LEVEL 142 MMOL/L (136-145); TOTAL PROTEIN 7.3 G/DL (5.7-8.2); TRIGLYCERIDES LEVEL 140 MG/DL (<150)
[2023-03-27 14:34] LABS: FERRITIN 21.2 NG/ML (10.5-307.3)
== END ==
LOC: M PLALAB 11:03
PROVIDERS: ATTEND Physician Assistant Medical
DX: D64.9 Anemia, unspecified (principal); Z87.19 Personal history of other diseases of the digestive system; E78.5 Hyperlipidemia, unspecified

== ENCOUNTER → 2023-07-30 | Outpatient (CLI) | payer OTHER ==
[2023-07-30 15:29] LABS: BASO # 0.1 10^3/uL (0.0-0.2); EOS # 0.3 10^3/uL (0.0-0.5); EOS % 3.3 % (0.0-3.0); HEMATOCRIT 47.7 % (42.0-52.0); HEMOGLOBIN 15.5 g/dl (13.5-17.5); LYMPH # 2.7 10^3/uL (1.5-5.0); MEAN CORPUSCULAR HEMOGLOBIN 30.2 pg (27.0-33.0); MEAN CORPUSCULAR HGB CONC 32.5 g/dl (32.0-36.5); MONO # 0.7 10^3/uL (0.0-0.8); MONO % 7.6 % (2.0-8.0); NEUTROPHILS # 5.2 10^3/uL (1.5-8.5); PLATELET COUNT, AUTOMATED 294 10^3/uL (150-450); RED BLOOD COUNT 5.13 10^6/uL (4.30-6.10); WHITE BLOOD COUNT 8.9 10^3/uL (4.0-10.0)
[2023-07-30 16:10] LABS: FERRITIN 28.6 NG/ML (10.5-307.3)
== END ==
LOC: M PLALAB 11:19
PROVIDERS: ATTEND Physician Assistant Medical
DX: E61.1 Iron deficiency (principal); I10 Essential (primary) hypertension; D64.9 Anemia, unspecified; K21.9 Gastro-esophageal reflux disease without esophagitis

== ENCOUNTER 2023-10-23 06:28 | Observation (INO) | payer OTHER ==
[2023-10-23] VITALS (9 sets, daily range): BP systolic 160–188; BP diastolic 82–101; TEMP 97.9–98.8; O2SAT 89–97
[~2023-10-23] VITALS: Ht 182.9 cm; Wt 85.3 kg
[2023-10-23] MEDS ORDERED: NS 1,000 ML IV ONE ×2 (08:05→09:05)
[2023-10-23] MEDS ORDERED: ONDANSETRON 4MG 2ML VIAL IV ONE (08:05)
[2023-10-23] MEDS ORDERED: PANTOPRAZOLE 40MG VIAL IV ONE (08:10)
[2023-10-23] MEDS: HYDROMORPHONE HCL 0.5 MG/ 0.5 ML SYRINGE IV PRN ×5 (08:14→23:27)
[2023-10-23 08:16] LABS: BASO % 0.1 % (0.0-1.0); EOS % 0.1 % (0.0-3.0); HEMOGLOBIN 14.9 g/dl (13.5-17.5); LYMPH # 1.4 10^3/uL (1.5-5.0); LYMPH % 9.1 % (24.0-44.0); MEAN CORPUSCULAR HEMOGLOBIN 29.4 pg (27.0-33.0); MEAN CORPUSCULAR HGB CONC 33.9 g/dl (32.0-36.5); MONO % 10.7 % (2.0-8.0); NEUTROPHILS # 12.3 10^3/uL (1.5-8.5); NEUTROPHILS % 79.6 % (36.0-66.0); PLATELET COUNT, AUTOMATED 320 10^3/uL (150-450); RED BLOOD COUNT 5.06 10^6/uL (4.30-6.10); WHITE BLOOD COUNT 15.5 10^3/uL (4.0-10.0)
[2023-10-23 08:42] LABS: RSV AMPLIFICATION NEGATIVE (NEGATIVE)
[2023-10-23 08:44] LABS: ALBUMIN 5.1 G/DL (3.2-5.2); BILIRUBIN,DIRECT 0.3 MG/DL (<0.4); BILIRUBIN,TOTAL 1.1 MG/DL (0.3-1.2); TOTAL PROTEIN 8.4 G/DL (5.7-8.2)
[2023-10-23] MEDS ORDERED: ISOVUE-370 76% 100ML VIAL As Ordered ONE (09:11)
[2023-10-23 09:18] LABS: MONO # 1.7 10^3/uL (0.0-0.8)
[2023-10-23] MEDS ORDERED: PROMETHAZINE 25MG/ML 1ML VIAL IV ONE (10:20)
[2023-10-23] MEDS ORDERED: HYDROMORPHONE HCL 0.5 MG/ 0.5 ML SYRINGE IV ONE (10:20)
[2023-10-23] MEDS ORDERED: METOCLOPRAMIDE INJ 10MG/2ML VIAL IV ONE (10:20)
[2023-10-23] MEDS ORDERED: GLUCAGON INJ 1MG VIAL SC PRN (11:55)
[2023-10-23] MEDS ORDERED: MOM 30ML SUSPENSION UDC PO PRN (11:55)
[2023-10-23] MEDS ORDERED: GLUCOSE 4GM CHEW TABLET PO PRN (11:55)
[2023-10-23] MEDS ORDERED: DEXTROSE 50% 50ML SYRINGE IV PRN (11:55)
[2023-10-23] MEDS ORDERED: MED REC IN PROGRESS XX SCH (12:20)
[2023-10-23] MEDS: THIAMINE 100 MG TAB PO SCH ×2 (12:25→20:16)
[2023-10-23] MEDS: INSULIN LISPRO (NovoLOG) PER UNIT SC SCH ×2 (12:26→16:54)
[2023-10-23] MEDS: KETOROLAC 30 MG/ML 1ML VIAL IV PRN ×2 (12:26→14:06)
[2023-10-23] MEDS: LR 1,000 ML IV SCH ×3 (12:26→20:17)
[2023-10-23] MEDS ORDERED: NALT50TA4 PO (13:21)
[2023-10-23] MEDS ORDERED: HYDR1CAP25 PO (13:21)
[2023-10-23] MEDS ORDERED: HOME MED LIST COMPLETE! XX SCH (13:25)
[2023-10-23] MEDS: ONDANSETRON 4MG 2ML VIAL IV PRN (14:06)
[2023-10-23] MEDS: FOLIC ACID 1MG TAB PO SCH (14:06)
[2023-10-23] MEDS: MULTIVITAMINS/MINERALS THERAP 1 TAB PO SCH (14:07)
[2023-10-23] MEDS: PROCHLORPERAZINE 10MG 2ML VIAL IV PRN (19:23)
[2023-10-23] MEDS ORDERED: MAG SULF 1GM/100ML (MAG RUN) 1 GM in IV 1 EA IV ONE (22:45)
[2023-10-23] MEDS: LORazepam 2 MG TAB PO PRN (23:27)
[2023-10-24] VITALS (16 sets, daily range): BP systolic 111–180; BP diastolic 70–109; TEMP 97.9–98.8; O2SAT 88–98
[2023-10-24 00:25] LABS: CK-MB VALUE MASS < 1.0 NG/ML (<3.6)
[2023-10-24 00:26] LABS: CPK CREATINE PHOSPHOKINASE 102 U/L (46-171); MB/CK RELATIVE INDEX 0.98 (< OR =4)
[2023-10-24 00:28] LABS: ALBUMIN 3.7 G/DL (3.2-5.2); ALKALINE PHOSPHATASE 107 U/L (46-116); ALT/SGPT 36 U/L (7.0-40); AST/SGOT 17 U/L (<34); BILIRUBIN,TOTAL 0.6 MG/DL (0.3-1.2); BLOOD UREA NITROGEN 18 MG/DL (9-23); CALCIUM LEVEL 11.1 MG/DL (8.5-10.1); CARBON DIOXIDE LEVEL 35 MMOL/L (20-31); CHLORIDE LEVEL 100 MMOL/L (98-107); CREATININE FOR GFR 1.08 MG/DL (0.70-1.30); GLOMERULAR FILTRATION RATE > 60.0 (>60); GLUCOSE, FASTING 214 MG/DL (60-100); POTASSIUM SERUM 3.3 MMOL/L (3.5-5.1); SODIUM LEVEL 141 MMOL/L (136-145); TOTAL PROTEIN 6.5 G/DL (5.7-8.2)
[2023-10-24] MEDS: INSULIN LISPRO (NovoLOG) PER UNIT SC SCH ×4 (00:57→18:00)
[2023-10-24] MEDS: LR 1,000 ML IV SCH ×6 (01:34→21:14)
[2023-10-24] MEDS: KCL 10MEQ/100ML SWI (KRUN) 10 MEQ in IV 1 EA IV SCH ×2 (01:35→03:01)
[2023-10-24] MEDS: HYDROMORPHONE HCL 0.5 MG/ 0.5 ML SYRINGE IV PRN ×7 (03:02→21:15)
[2023-10-24] MEDS: ONDANSETRON 4MG 2ML VIAL IV PRN ×3 (03:08→20:47)
[2023-10-24 06:19] LABS: HEMATOCRIT 39.4 % (42.0-52.0); MEAN CORPUSCULAR HEMOGLOBIN 29.8 pg (27.0-33.0); MEAN CORPUSCULAR VOLUME 90.4 fl (80.0-96.0); PLATELET COUNT, AUTOMATED 236 10^3/uL (150-450); RED BLOOD COUNT 4.36 10^6/uL (4.30-6.10); WHITE BLOOD COUNT 12.8 10^3/uL (4.0-10.0)
[2023-10-24 06:47] LABS: ALBUMIN 3.8 G/DL (3.2-5.2); ALKALINE PHOSPHATASE 110 U/L (46-116); ALT/SGPT 33 U/L (7.0-40); AST/SGOT 16 U/L (<34); BILIRUBIN,TOTAL 0.6 MG/DL (0.3-1.2); BLOOD UREA NITROGEN 17 MG/DL (9-23); CARBON DIOXIDE LEVEL 34 MMOL/L (20-31); CHLORIDE LEVEL 102 MMOL/L (98-107); CREATININE FOR GFR 1.08 MG/DL (0.70-1.30); GLOMERULAR FILTRATION RATE > 60.0 (>60); GLUCOSE, FASTING 129 MG/DL (60-100); MAGNESIUM LEVEL 2.2 MG/DL (1.8-2.4); POTASSIUM SERUM 3.4 MMOL/L (3.5-5.1); SODIUM LEVEL 144 MMOL/L (136-145); TOTAL PROTEIN 6.6 G/DL (5.7-8.2)
[2023-10-24] MEDS: FOLIC ACID 1MG TAB PO SCH (08:32)
[2023-10-24] MEDS: ACETAMINOPHEN TAB 650MG DOSE (2X325MG) PO PRN ×2 (08:32→17:08)
[2023-10-24] MEDS: THIAMINE 100 MG TAB PO SCH ×2 (08:32→20:47)
[2023-10-24] MEDS: MULTIVITAMINS/MINERALS THERAP 1 TAB PO SCH (08:32)
[2023-10-24] MEDS: ENOXAPARIN 40MG/0.4ML SYRINGE (J1650 PER 10MG) SC SCH (08:32)
[2023-10-24] MEDS: LORazepam 2 MG TAB PO PRN ×2 (15:12→20:47)
[2023-10-24] MEDS: PROCHLORPERAZINE 10MG 2ML VIAL IV PRN (23:14)
[2023-10-25] VITALS (8 sets, daily range): BP systolic 137–170; BP diastolic 84–99; TEMP 98.1–98.6; O2SAT 90–97
[2023-10-25] MEDS: LR 1,000 ML IV SCH ×5 (00:54→21:49)
[2023-10-25] MEDS: LORazepam 2 MG TAB PO PRN (00:54)
[2023-10-25] MEDS: INSULIN LISPRO (NovoLOG) PER UNIT SC SCH ×4 (00:54→17:30)
[2023-10-25] MEDS: HYDROMORPHONE HCL 0.5 MG/ 0.5 ML SYRINGE IV PRN ×4 (00:55→11:37)
[2023-10-25] MEDS: PANTOPRAZOLE 40MG TAB (PROTONIX) PO SCH ×2 (03:35→21:50)
[2023-10-25] MEDS: ACETAMINOPHEN TAB 650MG DOSE (2X325MG) PO PRN ×4 (03:36→21:51)
[2023-10-25] MEDS: ONDANSETRON 4MG 2ML VIAL IV PRN ×2 (04:39→18:48)
[2023-10-25 06:42] LABS: HEMOGLOBIN 12.7 g/dl (13.5-17.5); MEAN CORPUSCULAR HEMOGLOBIN 29.5 pg (27.0-33.0); MEAN CORPUSCULAR HGB CONC 32.6 g/dl (32.0-36.5); MEAN CORPUSCULAR VOLUME 90.5 fl (80.0-96.0); PLATELET COUNT, AUTOMATED 194 10^3/uL (150-450); RED BLOOD COUNT 4.31 10^6/uL (4.30-6.10)
[2023-10-25 07:58] LABS: ALBUMIN 3.5 G/DL (3.2-5.2); ALKALINE PHOSPHATASE 98 U/L (46-116); ALT/SGPT 25 U/L (7.0-40); AST/SGOT 14 U/L (<34); BILIRUBIN,TOTAL 0.4 MG/DL (0.3-1.2); BLOOD UREA NITROGEN 13 MG/DL (9-23); CALCIUM LEVEL 9.6 MG/DL (8.5-10.1); CARBON DIOXIDE LEVEL 29 MMOL/L (20-31); CHLORIDE LEVEL 103 MMOL/L (98-107); CREATININE FOR GFR 0.78 MG/DL (0.70-1.30); GLOMERULAR FILTRATION RATE > 60.0 (>60); GLUCOSE, FASTING 143 MG/DL (60-100); POTASSIUM SERUM 3.3 MMOL/L (3.5-5.1); SODIUM LEVEL 141 MMOL/L (136-145); TOTAL PROTEIN 6.2 G/DL (5.7-8.2)
[2023-10-25] MEDS: MULTIVITAMINS/MINERALS THERAP 1 TAB PO SCH (08:48)
[2023-10-25] MEDS: THIAMINE 100 MG TAB PO SCH ×2 (08:48→21:50)
[2023-10-25] MEDS: FOLIC ACID 1MG TAB PO SCH (08:48)
[2023-10-25] MEDS: ENOXAPARIN 40MG/0.4ML SYRINGE (J1650 PER 10MG) SC SCH (08:48)
[2023-10-25] MEDS: CREON-12 CAPSULE PO SCH ×2 (12:30→18:00)
[2023-10-25] MEDS: KETOROLAC 30 MG/ML 1ML VIAL IV PRN ×2 (13:37→18:48)
[2023-10-25] MEDS ORDERED: POTASSIUM CHLORIDE 10MEQ SR TABLET PO ONE (14:00)
[2023-10-25] MEDS: tiZANidine 4 MG TAB PO PRN (16:04)
[2023-10-25] MEDS: PROCHLORPERAZINE 10MG 2ML VIAL IV PRN (18:48)
[2023-10-25] MEDS ORDERED: lisinopriL 5 MG TAB PO SCH (21:00)
[2023-10-25] MEDS ORDERED: SIMVASTATIN 40 MG TAB PO SCH (21:00)
[2023-10-25] MEDS ORDERED: INSULIN LISPRO (NovoLOG) PER UNIT SC SCH (21:00)
[2023-10-25] MEDS ORDERED: NALTREXONE 50 MG TAB PO SCH (21:00)
[2023-10-26] MEDS: KETOROLAC 30 MG/ML 1ML VIAL IV PRN ×3 (00:58→13:41)
[2023-10-26] MEDS: PROCHLORPERAZINE 10MG 2ML VIAL IV PRN (00:59)
[2023-10-26] MEDS: tiZANidine 4 MG TAB PO PRN (01:08)
[2023-10-26 02:58] VITALS: TEMP 98.7; O2SAT 98
[2023-10-26] MEDS: ACETAMINOPHEN TAB 650MG DOSE (2X325MG) PO PRN ×2 (03:05→09:46)
[2023-10-26 05:00] VITALS: BP 147/87; TEMP 98.8; O2SAT 99
[2023-10-26 06:07] LABS: HEMATOCRIT 39.4 % (42.0-52.0); HEMOGLOBIN 13.3 g/dl (13.5-17.5); MEAN CORPUSCULAR HEMOGLOBIN 29.9 pg (27.0-33.0); MEAN CORPUSCULAR HGB CONC 33.8 g/dl (32.0-36.5); MEAN CORPUSCULAR VOLUME 88.5 fl (80.0-96.0); PLATELET COUNT, AUTOMATED 257 10^3/uL (150-450); RED BLOOD COUNT 4.45 10^6/uL (4.30-6.10); WHITE BLOOD COUNT 12.9 10^3/uL (4.0-10.0)
[2023-10-26 06:40] LABS: ALKALINE PHOSPHATASE 106 U/L (46-116); ALT/SGPT 26 U/L (7.0-40); AST/SGOT 16 U/L (<34); BILIRUBIN,TOTAL 0.5 MG/DL (0.3-1.2); BLOOD UREA NITROGEN 12 MG/DL (9-23); CALCIUM LEVEL 11.3 MG/DL (8.5-10.1); CARBON DIOXIDE LEVEL 26 MMOL/L (20-31); CHLORIDE LEVEL 100 MMOL/L (98-107); CREATININE FOR GFR 0.72 MG/DL (0.70-1.30); GLOMERULAR FILTRATION RATE > 60.0 (>60); GLUCOSE, FASTING 164 MG/DL (60-100); POTASSIUM SERUM 3.3 MMOL/L (3.5-5.1); SODIUM LEVEL 138 MMOL/L (136-145); TOTAL PROTEIN 7.4 G/DL (5.7-8.2)
[2023-10-26 07:29] VITALS: O2SAT 98
[2023-10-26] MEDS: INSULIN LISPRO (NovoLOG) PER UNIT SC SCH ×2 (07:30→12:56)
[2023-10-26] MEDS: FOLIC ACID 1MG TAB PO SCH (07:37)
[2023-10-26] MEDS: MULTIVITAMINS/MINERALS THERAP 1 TAB PO SCH (07:37)
[2023-10-26] MEDS: CREON-12 CAPSULE PO SCH ×2 (07:38→13:46)
[2023-10-26] MEDS: LR 1,000 ML IV SCH (07:39)
[2023-10-26] MEDS ORDERED: ENOXAPARIN 40MG/0.4ML SYRINGE (J1650 PER 10MG) SC SCH (09:00)
[2023-10-26 09:30] VITALS: O2SAT 98
[2023-10-26] MEDS ORDERED: POTASSIUM CHLORIDE 10MEQ SR TABLET PO ONE (10:00)
[2023-10-26 14:00] VITALS: BP 170/80; TEMP 98.6; O2SAT 99
== END 2023-10-26 15:01 | disposition home or self-care (01) ==
LOC: M ED 06:28 → M ED INP 11:54 → M MSPAV 13:50
PROVIDERS: ADMIT Internal Medicine; ATTEND Internal Medicine
DX: K85.90 Acute pancreatitis without necrosis or infection, unspecified (principal); K86.1 Other chronic pancreatitis; F10.90 Alcohol use, unspecified, uncomplicated; D72.829 Elevated white blood cell count, unspecified; N17.9 Acute kidney failure, unspecified; E11.65 Type 2 diabetes mellitus with hyperglycemia; K21.00 Gastro-esophageal reflux disease with esophagitis, without bleeding; I10 Essential (primary) hypertension; G43.909 Migraine, unspecified, not intractable, without status migrainosus; E78.5 Hyperlipidemia, unspecified; K02.9 Dental caries, unspecified; I49.3 Ventricular premature depolarization; R00.8 Other abnormalities of heart beat; E83.42 Hypomagnesemia; E87.6 Hypokalemia; F17.200 Nicotine dependence, unspecified, uncomplicated; Z20.822 Contact with and (suspected) exposure to COVID-19; Z88.5 Allergy status to narcotic agent; Z79.899 Other long term (current) drug therapy; Z79.84 Long term (current) use of oral hypoglycemic drugs; Z80.0 Family history of malignant neoplasm of digestive organs
CPT/HCPCS: 36415; 74177; 80047; 80053; 80076; 82550; 82553; 83690; 83735; 85025; 85027; 87631; 93005; 96361; 96365; 96366; 96367; 96372; 96375; 96376; 99284; C9113; J0780; J1170; J1650; J1815; J1885; J2405; J2765; J3475; Q9967

== ENCOUNTER → 2023-12-03 | Outpatient (CLI) | payer OTHER ==
[~2023-12-03] MED LIST changes: +HYDR1CAP25 PO; +NALT50TA4 PO
[2023-12-03 13:59] LABS: BASO # 0.1 10^3/uL (0.0-0.2); BASO % 0.6 % (0.0-1.0); EOS # 0.4 10^3/uL (0.0-0.5); EOS % 3.8 % (0.0-3.0); HEMATOCRIT 47.3 % (42.0-52.0); HEMOGLOBIN 15.2 g/dl (13.5-17.5); LYMPH # 3.5 10^3/uL (1.5-5.0); LYMPH % 34.1 % (24.0-44.0); MEAN CORPUSCULAR HEMOGLOBIN 29.3 pg (27.0-33.0); MEAN CORPUSCULAR HGB CONC 32.1 g/dl (32.0-36.5); MEAN CORPUSCULAR VOLUME 91.3 fl (80.0-96.0); MONO # 0.7 10^3/uL (0.0-0.8); MONO % 6.8 % (2.0-8.0); NEUTROPHILS # 5.5 10^3/uL (1.5-8.5); NEUTROPHILS % 54.5 % (36.0-66.0); PLATELET COUNT, AUTOMATED 382 10^3/uL (150-450); RED BLOOD COUNT 5.18 10^6/uL (4.30-6.10); WHITE BLOOD COUNT 10.2 10^3/uL (4.0-10.0)
[2023-12-03 14:22] LABS: LIPASE 20 U/L (12-53)
[2023-12-03 14:25] LABS: ALBUMIN 4.1 G/DL (3.2-5.2); ALKALINE PHOSPHATASE 116 U/L (46-116); ALT/SGPT 41 U/L (7.0-40); AST/SGOT 27 U/L (<34); BILIRUBIN,TOTAL 0.2 MG/DL (0.3-1.2); BLOOD UREA NITROGEN 7 MG/DL (9-23); CALCIUM LEVEL 9.8 MG/DL (8.5-10.1); CARBON DIOXIDE LEVEL 31 MMOL/L (20-31); CHLORIDE LEVEL 106 MMOL/L (98-107); CREATININE FOR GFR 0.85 MG/DL (0.70-1.30); GLOMERULAR FILTRATION RATE > 60.0 (>60); GLUCOSE, FASTING 153 MG/DL (60-100); IRON (FE) 69 UG/DL (65-175); POTASSIUM SERUM 4.5 MMOL/L (3.5-5.1); SODIUM LEVEL 141 MMOL/L (136-145); TOTAL PROTEIN 7.6 G/DL (5.7-8.2)
[2023-12-03 14:27] LABS: FERRITIN 28.7 NG/ML (10.5-307.3)
== END ==
LOC: M PLAIMG 11:18
PROVIDERS: ATTEND Physician Assistant Medical
DX: M54.50 Low back pain, unspecified (principal); G62.9 Polyneuropathy, unspecified

== ENCOUNTER → 2024-01-14 | Outpatient (CLI) | payer OTHER ==
[2024-01-14 14:11] LABS: HEMOGLOBIN A1c 8.5 % (4.0-6.0)
== END ==
LOC: M PLAIMG 10:14
PROVIDERS: ATTEND Physician Assistant Medical
DX: M54.6 Pain in thoracic spine (principal); E11.65 Type 2 diabetes mellitus with hyperglycemia

== ENCOUNTER → 2024-02-04 | Outpatient (CLI) | payer OTHER | LOC: M PLAIMG 06:37 | PROVIDERS: ATTEND Physician Assistant Medical | DX: M54.50 Low back pain, unspecified (principal) ==

== ENCOUNTER 2024-03-24 09:35 | Inpatient (IN) | payer OTHER ==
[~2024-03-24] VITALS: Ht 182.9 cm; Wt 87.9 kg
[~2024-03-24 09:35] MED LIST changes: +DOXY-323 PO; -DOXY-443 PO
[2024-03-24] MEDS ORDERED: ATOR40TA75 PO (09:44)
[2024-03-24 11:06] LABS: BASO # 0.1 10^3/uL (0.0-0.2); BASO % 0.3 % (0.0-1.0); EOS # 0.1 10^3/uL (0.0-0.5); EOS % 0.7 % (0.0-3.0); HEMATOCRIT 41.4 % (42.0-52.0); HEMOGLOBIN 14.2 g/dl (13.5-17.5); LYMPH # 1.8 10^3/uL (1.5-5.0); MEAN CORPUSCULAR HEMOGLOBIN 30.1 pg (27.0-33.0); MEAN CORPUSCULAR HGB CONC 34.3 g/dl (32.0-36.5); MEAN CORPUSCULAR VOLUME 87.7 fl (80.0-96.0); MONO % 6.5 % (2.0-8.0); NEUTROPHILS # 11.9 10^3/uL (1.5-8.5); NEUTROPHILS % 80.2 % (36.0-66.0); PLATELET COUNT, AUTOMATED 279 10^3/uL (150-450); RED BLOOD COUNT 4.72 10^6/uL (4.30-6.10); WHITE BLOOD COUNT 14.8 10^3/uL (4.0-10.0)
[2024-03-24] MEDS: NS 1,000 ML IV ONE (11:09)
[2024-03-24] MEDS: PANTOPRAZOLE 40MG VIAL IV ONE (11:09)
[2024-03-24] MEDS: ONDANSETRON 4MG 2ML VIAL IV ONE ×2 (11:09→23:04)
[2024-03-24] MEDS: MORPHINE 4 MG/ML 1ML VIAL IV ONE (11:09)
[2024-03-24 11:17] LABS: INR 1.13; PARTIAL THROMBOPLASTIN TIME 23.5 SECONDS (24.8-34.2); PROTHROMBIN TIME 14.1 SECONDS (12.5-14.5)
[2024-03-24 12:45] LABS: LIPASE 108 U/L (12-53)
[2024-03-24 12:46] LABS: CPK CREATINE PHOSPHOKINASE 78 U/L (46-171)
[2024-03-24 12:51] LABS: ALBUMIN 3.7 G/DL (3.2-5.2); ALKALINE PHOSPHATASE 98 U/L (46-116); ALT/SGPT 20 U/L (7.0-40); AST/SGOT 14 U/L (<34); BILIRUBIN,DIRECT 0.3 MG/DL (<0.4); BILIRUBIN,TOTAL 0.7 MG/DL (0.3-1.2); BLOOD UREA NITROGEN 13 MG/DL (9-23); CARBON DIOXIDE LEVEL > 40.0 MMOL/L (20-31); CHLORIDE LEVEL 90 MMOL/L (98-107); CK-MB VALUE MASS < 1.0 NG/ML (<3.6); CREATININE FOR GFR 1.83 MG/DL (0.70-1.30); GLOMERULAR FILTRATION RATE 45.1 (>60); GLUCOSE, FASTING 213 MG/DL (60-100); MB/CK RELATIVE INDEX 1.28 (< OR =4); POTASSIUM SERUM 2.9 MMOL/L (3.5-5.1); SODIUM LEVEL 135 MMOL/L (136-145); TOTAL PROTEIN 6.6 G/DL (5.7-8.2)
[2024-03-24] MEDS ORDERED: ISOVUE-370 76% 100ML VIAL As Ordered ONE (12:58)
[2024-03-24 13:11] LABS: MAGNESIUM LEVEL 1.4 MG/DL (1.8-2.4)
[2024-03-24 13:13] LABS: PTH INTACT 12.9 PG/ML (18.5-88.0)
[2024-03-24 13:15] LABS: TOTAL 25(OH) VITAMIN D 6.7 NG/ML (20.0-100.0)
[2024-03-24] MEDS: KCL 10MEQ/100ML SWI (KRUN) 10 MEQ in IV 1 EA IV SCH (13:52)
[2024-03-24] MEDS: HYDROMORPHONE HCL 0.5 MG/ 0.5 ML SYRINGE IV ONE (13:52)
[2024-03-24 14:11] LABS: CK-MB VALUE MASS < 1.0 NG/ML (<3.6)
[2024-03-24 14:13] LABS: CPK CREATINE PHOSPHOKINASE 74 U/L (46-171); MB/CK RELATIVE INDEX 1.35 (< OR =4)
[2024-03-24 14:32] LABS: CALCIUM LEVEL > 15.0 MG/DL (8.5-10.1)
[2024-03-24] MEDS ORDERED: ATOR1TAB19 PO (15:04)
[2024-03-24] MEDS ORDERED: AMLO1TAB24 PO (15:04)
[2024-03-24] MEDS ORDERED: RIZA10TA2 PO (15:04)
[2024-03-24] MEDS ORDERED: HYDR-3363 PO (15:04)
[2024-03-24] MEDS ORDERED: GABA-282 PO (15:04)
[2024-03-24] MEDS ORDERED: CREO12CA PO (15:04)
[2024-03-24] MEDS ORDERED: AMIT10TA7 PO (15:04)
[2024-03-24] MEDS ORDERED: LEXA1TAB PO (15:04)
[2024-03-24] MEDS ORDERED: BASA100I SC (15:04)
[2024-03-24] MEDS ORDERED: NALT50TA4 PO (15:04)
[2024-03-24] MEDS ORDERED: HOME MED LIST COMPLETE! XX SCH (15:05)
[2024-03-24] MEDS: NS 1,000 ML IV SCH (15:23)
[2024-03-24] MEDS: MAG SULF 1GM/100ML (MAG RUN) 1 GM in IV 1 EA IV ONE (15:31)
[2024-03-24 16:05] LABS: PHOSPHORUS LEVEL 3.2 MG/DL (2.5-4.9)
[2024-03-24] MEDS ORDERED: MOM 30ML SUSPENSION UDC PO PRN (16:15)
[2024-03-24] MEDS ORDERED: tiZANidine 4 MG TAB PO PRN (16:25)
[2024-03-24] MEDS ORDERED: RIZATRIPTAN BENZOATE 10 MG TAB PO PRN (16:25)
[2024-03-24] MEDS ORDERED: HYDROMORPHONE HCL 0.5 MG/ 0.5 ML SYRINGE IV PRN (16:25)
[2024-03-24 16:27] LABS: CHOLESTEROL LEVEL 118 MG/DL (<200); CHOLESTEROL RISK RATIO 4.24 (<5); FREE T4 0.89 NG/DL (0.89-1.76); HDL CHOLESTEROL 27.8 MG/DL (>40); LDL CHOLESTEROL 56.4 MG/DL (<100); NON-HDL-C 90.2 MG/DL; THYROID STIMULATING HORMONE 8.888 uIU/ML (0.55-4.78); TRIGLYCERIDES LEVEL 169 MG/DL (<150)
[2024-03-24 16:31] LABS: CORTISOL PM 44.8 UG/DL (3.1-16.7)
[2024-03-24] MEDS: KCL 20MEQ in NS 1000ML 1,000 ML IV SCH (16:48)
[2024-03-24] MEDS ORDERED: DEXTROSE 50% 50ML SYRINGE IV PRN (16:50)
[2024-03-24] MEDS ORDERED: GLUCOSE 4 GM CHEW PO PRN (16:50)
[2024-03-24] MEDS ORDERED: GLUCAGON INJ 1MG VIAL SC PRN (16:50)
[2024-03-24] MEDS: HYDROMORPHONE HCL 0.5 MG/ 0.5 ML SYRINGE IV PRN (17:24)
[2024-03-24] MEDS: INSULIN LISPRO (NovoLOG) PER UNIT SC SCH ×2 (17:30→22:19)
[2024-03-24] MEDS: CREON-12 CAPSULE PO SCH (18:00)
[2024-03-24] MEDS: ONDANSETRON 4MG ORAL DISINTEGRATING TAB PO PRN (18:57)
[2024-03-24] MEDS: cloNIDine 0.1MG TABLET PO ONE (18:57)
[2024-03-24] MEDS: CALCITONIN SALMON (MIACALCIN) 400INTERNATIONAL UNITS/2ML VIAL SQ SCH (19:06)
[2024-03-24 19:13] LABS: BLOOD UREA NITROGEN 13 MG/DL (9-23); CARBON DIOXIDE LEVEL 40 MMOL/L (20-31); CHLORIDE LEVEL 94 MMOL/L (98-107); GLOMERULAR FILTRATION RATE 43.2 (>60); GLUCOSE, FASTING 205 MG/DL (60-100); MAGNESIUM LEVEL 1.9 MG/DL (1.8-2.4); POTASSIUM SERUM 3.4 MMOL/L (3.5-5.1); SODIUM LEVEL 137 MMOL/L (136-145)
[2024-03-24 19:16] LABS: CALCIUM LEVEL > 15.0 MG/DL (8.5-10.1)
[2024-03-24] MEDS: hydrALAZINE 20MG/ML 1ML VIAL IV STA (19:29)
[2024-03-24] MEDS: AMITRIPTYLINE 10MG TABLET PO SCH (21:00)
[2024-03-24] MEDS: POTASSIUM CHLORIDE 10MEQ SR TABLET PO ONE (22:14)
[2024-03-24] MEDS: DOCUSATE SODIUM 100MG CAPSULE PO SCH (22:14)
[2024-03-24] MEDS: **hydrALAZINE** 50 MG TAB PO SCH (22:14)
[2024-03-24] MEDS: ATORVASTATIN 10 MG TAB PO SCH (22:14)
[2024-03-24] MEDS: LEVEMIR (INSULIN DETEMIR) 1 UNITS/0.01ML SC SCH (22:15)
[2024-03-24] MEDS: HEPARIN SOD (PORCINE) 5000UNITS/ML 1ML VIAL/SYRINGE SC SCH (22:21)
[2024-03-24 23:32] VITALS: BP 177/103; TEMP 97; O2SAT 94
[2024-03-24] MEDS: hydrALAZINE 20MG/ML 1ML VIAL IV PRN (23:38)
[2024-03-25 00:54] LABS: CALCIUM LEVEL 14.9 MG/DL (8.5-10.1); CREATININE FOR GFR 1.76 MG/DL (0.70-1.30); GLOMERULAR FILTRATION RATE 47.1 (>60); POTASSIUM SERUM 3.3 MMOL/L (3.5-5.1)
[2024-03-25 01:02] VITALS: BP 161/94
[2024-03-25] MEDS: METOCLOPRAMIDE INJ 10MG/2ML VIAL IV ONE (01:07)
[2024-03-25] MEDS: SCOPOLAMINE 1MG TRANSDERMAL PATCH TOP ONE (01:30)
[2024-03-25] MEDS: KCL 10MEQ/100ML SWI (KRUN) 10 MEQ in IV 1 EA IV SCH ×3 (03:05→14:36)
[2024-03-25] MEDS: ONDANSETRON 4MG 2ML VIAL IV SCH ×2 (03:05→09:30)
[2024-03-25 04:26] VITALS: BP 170/91; TEMP 97.9; O2SAT 95
[2024-03-25 06:00] LABS: IONIZED CALCIUM 6.6 MG/DL (4.5-5.3)
[2024-03-25 06:10] LABS: HEMATOCRIT 39.8 % (42.0-52.0); HEMOGLOBIN 13.5 g/dl (13.5-17.5); MEAN CORPUSCULAR HEMOGLOBIN 29.8 pg (27.0-33.0); MEAN CORPUSCULAR HGB CONC 33.9 g/dl (32.0-36.5); MEAN CORPUSCULAR VOLUME 87.9 fl (80.0-96.0); PLATELET COUNT, AUTOMATED 272 10^3/uL (150-450); RED BLOOD COUNT 4.53 10^6/uL (4.30-6.10); WHITE BLOOD COUNT 16.9 10^3/uL (4.0-10.0)
[2024-03-25 06:37] LABS: CALCIUM LEVEL 14.3 MG/DL (8.5-10.1); CREATININE FOR GFR 1.79 MG/DL (0.70-1.30); GLOMERULAR FILTRATION RATE 46.2 (>60); MAGNESIUM LEVEL 1.6 MG/DL (1.8-2.4); POTASSIUM SERUM 3.3 MMOL/L (3.5-5.1)
[2024-03-25] MEDS: NS 1,000 ML IV SCH (07:35)
[2024-03-25 07:48] VITALS: BP 172/92; TEMP 98.4; O2SAT 97
[2024-03-25] MEDS: INSULIN LISPRO (NovoLOG) PER UNIT SC SCH (07:51)
[2024-03-25] MEDS ORDERED: cloNIDine 0.2 MG TAB PO SCH (09:00)
[2024-03-25] MEDS ORDERED: PANTOPRAZOLE 40MG VIAL IV SCH (09:00)
[2024-03-25] MEDS: GABAPENTIN 300 MG CAP PO SCH (09:00)
[2024-03-25] MEDS: ESCITALOPRAM OXALATE 5MG TABLET (LEXAPRO) PO SCH (09:00)
[2024-03-25] MEDS: MAG SULF 1GM/100ML (MAG RUN) 1 GM in IV 1 EA IV SCH (09:30)
[2024-03-25] MEDS: PANTOPRAZOLE 40MG VIAL IV SCH (09:30)
[2024-03-25] MEDS: cloNIDine HCL 0.2 MG/24 HR PATCH TOP SCH (09:30)
[2024-03-25] MEDS: LEVEMIR (INSULIN DETEMIR) 1 UNITS/0.01ML SC SCH (09:31)
[2024-03-25] MEDS: SCOPOLAMINE 1MG TRANSDERMAL PATCH TOP SCH (09:43)
[2024-03-25] MEDS: HYDROMORPHONE HCL 0.5 MG/ 0.5 ML SYRINGE IV PRN (09:46)
[2024-03-25 10:32] LABS: AMPHETAMINES LEVEL URINE NEGATIVE (NEGATIVE); BENZODIAZEPINES URINE NEGATIVE (NEGATIVE)
[2024-03-25 10:33] LABS: BARBITURATES URINE NEGATIVE (NEGATIVE); CANNABINOIDS URINE NEGATIVE (NEGATIVE); COCAINE METABOLITE URINE NEGATIVE (NEGATIVE); METHADONE URINE NEGATIVE (NEGATIVE); PHENCYCLIDINE URINE NEGATIVE (NEGATIVE)
[2024-03-25 10:40] LABS: OPIATES URINE POSITIVE (NEGATIVE)
[2024-03-25 12:00] VITALS: BP 181/98; TEMP 97.5; O2SAT 95
[2024-03-25 14:55] VITALS: BP 162/80
[2024-03-25 19:22] VITALS: BP 163/97; TEMP 98.3; O2SAT 96
[2024-03-26] VITALS (7 sets, daily range): BP systolic 158–170; BP diastolic 84–101; TEMP 96.9–98.4; O2SAT 94–98
[2024-03-26] MEDS: ONDANSETRON 4MG 2ML VIAL IV ONE ×2 (05:09→23:04)
[2024-03-26 05:49] LABS: HEMATOCRIT 35.8 % (42.0-52.0); HEMOGLOBIN 11.6 g/dl (13.5-17.5); MEAN CORPUSCULAR HEMOGLOBIN 29.2 pg (27.0-33.0); MEAN CORPUSCULAR HGB CONC 32.4 g/dl (32.0-36.5); MEAN CORPUSCULAR VOLUME 90.2 fl (80.0-96.0); PLATELET COUNT, AUTOMATED 222 10^3/uL (150-450); RED BLOOD COUNT 3.97 10^6/uL (4.30-6.10); WHITE BLOOD COUNT 12.4 10^3/uL (4.0-10.0)
[2024-03-26 06:18] LABS: CALCIUM LEVEL 10.4 MG/DL (8.5-10.1); CREATININE FOR GFR 1.7 MG/DL (0.70-1.30); GLOMERULAR FILTRATION RATE 49.1 (>60); MAGNESIUM LEVEL 1.3 MG/DL (1.8-2.4); POTASSIUM SERUM 2.9 MMOL/L (3.5-5.1)
[2024-03-26] MEDS ORDERED: MAG SULF 1GM/100ML (MAG RUN) 1 GM in IV 1 EA IV SCH (08:00)
[2024-03-26] MEDS: MAG SULF 1GM/100ML (MAG RUN) 1 GM in IV 1 EA IV SCH (08:49)
[2024-03-26] MEDS: POTASSIUM CHLORIDE 10MEQ SR TABLET PO ONE (08:50)
[2024-03-26] MEDS ORDERED: KCL 10MEQ/100ML SWI (KRUN) 10 MEQ in IV 1 EA IV SCH (10:00)
[2024-03-26] MEDS: HYDROMORPHONE HCL 0.5 MG/ 0.5 ML SYRINGE IV PRN ×3 (11:10→20:24)
[2024-03-26] MEDS ORDERED: POTASSIUM CHLORIDE INJ 40 MEQ in NS 1,000 ML IV SCH (12:02)
[2024-03-26] MEDS: INSULIN LISPRO (NovoLOG) PER UNIT SC SCH ×2 (12:23→21:00)
[2024-03-26 12:27] LABS: CALCIUM, 24 HOUR URINE 589.6 MG/24HR (42-353); CALCIUM, URINE 13.4 MG/DL
[2024-03-26 13:20] LABS: CALCIUM LEVEL 9.7 MG/DL (8.5-10.1); CREATININE FOR GFR 1.53 MG/DL (0.70-1.30); GLOMERULAR FILTRATION RATE 55.4 (>60)
[2024-03-26] MEDS: ACETAMINOPHEN TAB 650MG DOSE (2X325MG) PO PRN (14:14)
[2024-03-26] MEDS: KCL 10MEQ/100ML SWI (KRUN) 10 MEQ in IV 1 EA IV SCH (14:15)
[2024-03-26] MEDS: KCL 40MEQ in NS 1000ML 1,000 ML IV SCH (14:18)
[2024-03-26] MEDS: NICOTINE 14 MG/24 HR TRANSDERMAL TD SCH (17:17)
[2024-03-27] VITALS (7 sets, daily range): BP systolic 99–168; BP diastolic 61–94; TEMP 96.8–98.3; O2SAT 94–97
[2024-03-27] MEDS: FAMOTIDINE IV BAG 20 MG in IV 1 EA IV ONE (01:17)
[2024-03-27] MEDS: ONDANSETRON 4MG 2ML VIAL IV ONE ×2 (03:00→06:55)
[2024-03-27 06:23] LABS: HEMATOCRIT 34.8 % (42.0-52.0); HEMOGLOBIN 11.4 g/dl (13.5-17.5); MEAN CORPUSCULAR HEMOGLOBIN 29.4 pg (27.0-33.0); MEAN CORPUSCULAR HGB CONC 32.8 g/dl (32.0-36.5); MEAN CORPUSCULAR VOLUME 89.7 fl (80.0-96.0); PLATELET COUNT, AUTOMATED 216 10^3/uL (150-450); RED BLOOD COUNT 3.88 10^6/uL (4.30-6.10); WHITE BLOOD COUNT 9.9 10^3/uL (4.0-10.0)
[2024-03-27 06:50] LABS: BLOOD UREA NITROGEN 13 MG/DL (9-23); CALCIUM LEVEL 9.2 MG/DL (8.5-10.1); CARBON DIOXIDE LEVEL 26 MMOL/L (20-31); CHLORIDE LEVEL 110 MMOL/L (98-107); CREATININE FOR GFR 1.31 MG/DL (0.70-1.30); GLOMERULAR FILTRATION RATE > 60.0 (>60); GLUCOSE, FASTING 144 MG/DL (60-100); MAGNESIUM LEVEL 1.2 MG/DL (1.8-2.4); POTASSIUM SERUM 3.4 MMOL/L (3.5-5.1); SODIUM LEVEL 147 MMOL/L (136-145)
[2024-03-27] MEDS ORDERED: PROCHLORPERAZINE 10MG 2ML VIAL IV PRN (07:20)
[2024-03-27] MEDS: KCL 10MEQ/100ML SWI (KRUN) 10 MEQ in IV 1 EA IV SCH (10:03)
[2024-03-27] MEDS: ONDANSETRON 4MG 2ML VIAL IV SCH (10:04)
[2024-03-27] MEDS: HYDROMORPHONE HCL 0.5 MG/ 0.5 ML SYRINGE IV PRN ×2 (10:06→17:31)
[2024-03-27] MEDS: PINK BISMUTH SUSP 524MG/30ML ORAL SYRINGE PO SCH (12:05)
[2024-03-27] MEDS: ACETAMINOPHEN TAB 650MG DOSE (2X325MG) PO SCH (12:06)
[2024-03-27] MEDS: MAG SULF 1GM/100ML (MAG RUN) 1 GM in IV 1 EA IV SCH (12:07)
[2024-03-27] MEDS: MAG SULF 1GM/100ML (MAG RUN) 1 GM in IV 1 EA IV ONE (18:06)
[2024-03-28 05:04] VITALS: BP 135/88; TEMP 97.2; O2SAT 95
[2024-03-28 06:01] LABS: HEMATOCRIT 36.8 % (42.0-52.0); HEMOGLOBIN 12.1 g/dl (13.5-17.5); MEAN CORPUSCULAR HEMOGLOBIN 29.7 pg (27.0-33.0); MEAN CORPUSCULAR HGB CONC 32.9 g/dl (32.0-36.5); MEAN CORPUSCULAR VOLUME 90.4 fl (80.0-96.0); PLATELET COUNT, AUTOMATED 210 10^3/uL (150-450); RED BLOOD COUNT 4.07 10^6/uL (4.30-6.10); WHITE BLOOD COUNT 10.1 10^3/uL (4.0-10.0)
[2024-03-28 06:12] LABS: BLOOD UREA NITROGEN 10 MG/DL (9-23); CALCIUM LEVEL 7.5 MG/DL (8.5-10.1); CARBON DIOXIDE LEVEL 23 MMOL/L (20-31); CHLORIDE LEVEL 112 MMOL/L (98-107); CREATININE FOR GFR 1.04 MG/DL (0.70-1.30); GLOMERULAR FILTRATION RATE > 60.0 (>60); GLUCOSE, FASTING 119 MG/DL (60-100); MAGNESIUM LEVEL 1.5 MG/DL (1.8-2.4); POTASSIUM SERUM 3.9 MMOL/L (3.5-5.1); SODIUM LEVEL 143 MMOL/L (136-145)
[2024-03-28 07:38] LABS: ALBUMIN 3.2 G/DL (3.2-5.2); ALKALINE PHOSPHATASE 72 U/L (46-116); ALT/SGPT 17 U/L (7.0-40); AST/SGOT 14 U/L (<34); BILIRUBIN,DIRECT 0.1 MG/DL (<0.4); BILIRUBIN,TOTAL 0.3 MG/DL (0.3-1.2)
[2024-03-28] MEDS ORDERED: HYDROMORPHONE HCL 0.5 MG/ 0.5 ML SYRINGE IV PRN (08:15)
[2024-03-28] MEDS: MAG SULF 1GM/100ML (MAG RUN) 1 GM in IV 1 EA IV SCH (09:30)
[2024-03-28] MEDS: HYDROMORPHONE HCL 0.5 MG/ 0.5 ML SYRINGE IV PRN (10:00)
[2024-03-28 13:58] VITALS: BP 139/89; TEMP 97.2; O2SAT 95
[2024-03-28] MEDS: oxyCODONE 5MG TAB PO PRN (15:51)
[2024-03-28 20:08] VITALS: BP 140/87; TEMP 97.5; O2SAT 96
[2024-03-29 04:18] VITALS: BP 152/96; TEMP 97.2; O2SAT 95
[2024-03-29 06:01] LABS: HEMATOCRIT 36.1 % (42.0-52.0); HEMOGLOBIN 11.9 g/dl (13.5-17.5); MEAN CORPUSCULAR HEMOGLOBIN 29.1 pg (27.0-33.0); MEAN CORPUSCULAR VOLUME 88.3 fl (80.0-96.0); PLATELET COUNT, AUTOMATED 195 10^3/uL (150-450); RED BLOOD COUNT 4.09 10^6/uL (4.30-6.10); WHITE BLOOD COUNT 8.1 10^3/uL (4.0-10.0)
[2024-03-29 06:26] LABS: BLOOD UREA NITROGEN 7 MG/DL (9-23); CALCIUM LEVEL 6.7 MG/DL (8.5-10.1); CARBON DIOXIDE LEVEL 24 MMOL/L (20-31); CHLORIDE LEVEL 107 MMOL/L (98-107); CREATININE FOR GFR 1.01 MG/DL (0.70-1.30); GLOMERULAR FILTRATION RATE > 60.0 (>60); GLUCOSE, FASTING 240 MG/DL (60-100); MAGNESIUM LEVEL 1.2 MG/DL (1.8-2.4); POTASSIUM SERUM 3.4 MMOL/L (3.5-5.1); SODIUM LEVEL 139 MMOL/L (136-145)
[2024-03-29] MEDS ORDERED: ACETAMINOPHEN 500 MG TAB PO PRN (07:25)
[2024-03-29] MEDS: LEVEMIR (INSULIN DETEMIR) 1 UNITS/0.01ML SC SCH (08:21)
[2024-03-29] MEDS: METAMUCIL (PSYLLIUM) PACKET PO SCH (08:22)
[2024-03-29] MEDS: MIRALAX *UNIT DOSE* 17GM PACKET PO SCH (08:22)
[2024-03-29] MEDS: POTASSIUM CHLORIDE 10MEQ SR TABLET PO SCH (08:23)
[2024-03-29] MEDS: MAG SULF 1GM/100ML (MAG RUN) 1 GM in IV 1 EA IV SCH (08:25)
[2024-03-29] MEDS: CALCIUM CARBONATE 500 MG CHEW U/D PO SCH (08:26)
[2024-03-29] MEDS ORDERED: ONDANSETRON 4MG 2ML VIAL IV PRN (09:01)
[2024-03-29] MEDS: oxyCODONE 5MG TAB PO PRN (09:38)
[2024-03-29] MEDS ORDERED: ONDA-282 PO (11:08)
[2024-03-29] MEDS ORDERED: PROT1TAB2 PO (11:08)
[2024-03-29] MEDS ORDERED: OYST1TAB PO (11:08)
[2024-03-29] MEDS ORDERED: MAGN400T2 PO (11:08)
[2024-03-29] MEDS ORDERED: POTA-151 PO (11:08)
[2024-03-29] MEDS ORDERED: META1POW PO (11:08)
[2024-03-29] MEDS ORDERED: MIRA33506 PO (11:08)
[2024-03-29] MEDS ORDERED: COLA100C5 PO (11:08)
[2024-03-29] MEDS ORDERED: SENO8.6T5 PO (11:08)
[2024-03-29] MEDS ORDERED: LISI10TA22 PO (11:41)
[2024-03-29 12:00] VITALS: BP 127/80; TEMP 97.5; O2SAT 96
[2024-03-29] MEDS ORDERED: SENNA 8.6 MG TAB (SENOKOT) PO PRN (12:00)
[2024-03-29] MEDS: oxyCODONE 5MG TAB PO ONE (12:44)
[2024-03-29] MEDS ORDERED: OXYC-517 PO (12:51)
[2024-03-29 13:43] VITALS: BP 127/80
[2024-03-29] MEDS ORDERED: MAGNESIUM OXIDE 400MG TAB (MAG-OX) PO SCH (16:00)
[2024-03-29] MEDS ORDERED: LEVEMIR (INSULIN DETEMIR) 1 UNITS/0.01ML SC SCH (21:00)
== END 2024-03-29 15:02 | disposition home or self-care (01) | DRG 812 ==
LOC: M ED 09:35 → M ED INP 16:14 → M PCU 22:48 → M MSPAV 03-27 18:32
PROVIDERS: ADMIT Student in an Organized Health Care Education/Training Program; ATTEND Student in an Organized Health Care Education/Training Program
DX: T47.1X1A Poisoning by other antacids and anti-gastric-secretion drugs, accidental (unintentional), initial encounter (principal); N17.9 Acute kidney failure, unspecified; K22.6 Gastro-esophageal laceration-hemorrhage syndrome; K85.90 Acute pancreatitis without necrosis or infection, unspecified; K92.0 Hematemesis; E87.0 Hyperosmolality and hypernatremia; E83.52 Hypercalcemia; E83.42 Hypomagnesemia; G43.909 Migraine, unspecified, not intractable, without status migrainosus; I10 Essential (primary) hypertension; E11.9 Type 2 diabetes mellitus without complications; K21.00 Gastro-esophageal reflux disease with esophagitis, without bleeding; F17.200 Nicotine dependence, unspecified, uncomplicated; E87.6 Hypokalemia; M54.9 Dorsalgia, unspecified; G89.29 Other chronic pain; F32.A Depression, unspecified; F41.9 Anxiety disorder, unspecified; G47.00 Insomnia, unspecified; Z79.84 Long term (current) use of oral hypoglycemic drugs; Z79.4 Long term (current) use of insulin; Z79.899 Other long term (current) drug therapy; Z88.5 Allergy status to narcotic agent

== ENCOUNTER → 2024-04-15 | Outpatient (CLI) | payer OTHER ==
[~2024-04-15] MED LIST changes: +AMIT10TA7 PO; +AMLO1TAB24 PO; +ATOR1TAB19 PO; +ATOR40TA75 PO; +COLA100C5 PO; +CREO12CA PO; +GABA-282 PO; +HYDR-3363 PO; +LEXA1TAB PO; +META1POW PO; +MIRA33506 PO; +ONDA-282 PO; +OXYC-517 PO; +OYST1TAB PO; +POTA-151 PO; +PROT1TAB2 PO; +RIZA10TA2 PO; +SENO8.6T5 PO
[2024-04-15 18:29] LABS: BASO # 0.1 10^3/uL (0.0-0.2); BASO % 0.7 % (0.0-1.0); EOS # 0.4 10^3/uL (0.0-0.5); EOS % 4.8 % (0.0-3.0); HEMATOCRIT 44.8 % (42.0-52.0); HEMOGLOBIN 14.6 g/dl (13.5-17.5); LYMPH # 2.7 10^3/uL (1.5-5.0); MEAN CORPUSCULAR HEMOGLOBIN 29.9 pg (27.0-33.0); MEAN CORPUSCULAR HGB CONC 32.6 g/dl (32.0-36.5); MEAN CORPUSCULAR VOLUME 91.6 fl (80.0-96.0); MONO # 0.7 10^3/uL (0.0-0.8); MONO % 7.8 % (2.0-8.0); NEUTROPHILS % 56.5 % (36.0-66.0); PLATELET COUNT, AUTOMATED 291 10^3/uL (150-450); RED BLOOD COUNT 4.89 10^6/uL (4.30-6.10); WHITE BLOOD COUNT 8.9 10^3/uL (4.0-10.0)
[2024-04-15 19:18] LABS: ALBUMIN 4.1 G/DL (3.2-5.2); ALKALINE PHOSPHATASE 98 U/L (46-116); ALT/SGPT 22 U/L (7.0-40); AST/SGOT 11 U/L (<34); BILIRUBIN,TOTAL 0.4 MG/DL (0.3-1.2); BLOOD UREA NITROGEN 20 MG/DL (9-23); CALCIUM LEVEL 10.8 MG/DL (8.5-10.1); CARBON DIOXIDE LEVEL 32 MMOL/L (20-31); CHLORIDE LEVEL 98 MMOL/L (98-107); CREATININE FOR GFR 1.26 MG/DL (0.70-1.30); FREE T4 0.84 NG/DL (0.89-1.76); GLOMERULAR FILTRATION RATE > 60.0 (>60); GLUCOSE, FASTING 208 MG/DL (60-100); MAGNESIUM LEVEL 1.8 MG/DL (1.8-2.4); POTASSIUM SERUM 5.4 MMOL/L (3.5-5.1); SODIUM LEVEL 132 MMOL/L (136-145); THYROID STIMULATING HORMONE 20.616 uIU/ML (0.55-4.78); TOTAL PROTEIN 7.1 G/DL (5.7-8.2)
[2024-04-15 19:28] LABS: HEMOGLOBIN A1c 7.1 % (4.0-6.0)
== END ==
LOC: M PLALAB 15:06
PROVIDERS: ATTEND Physician Assistant Medical
DX: E78.6 Lipoprotein deficiency (principal)

== ENCOUNTER → 2024-06-30 | Outpatient (CLI) | payer OTHER ==
[~2024-06-30] MED LIST changes: +LEXA1TAB2 PO
[2024-06-30 15:20] LABS: BASO # 0.1 10^3/uL (0.0-0.2); BASO % 0.6 % (0.0-1.0); EOS # 0.5 10^3/uL (0.0-0.5); EOS % 4.4 % (0.0-3.0); HEMATOCRIT 37.3 % (42.0-52.0); HEMOGLOBIN 12.3 g/dl (13.5-17.5); LYMPH # 2.9 10^3/uL (1.5-5.0); LYMPH % 28.4 % (24.0-44.0); MEAN CORPUSCULAR HEMOGLOBIN 29.5 pg (27.0-33.0); MEAN CORPUSCULAR VOLUME 89.4 fl (80.0-96.0); MONO # 0.7 10^3/uL (0.0-0.8); MONO % 6.6 % (2.0-8.0); NEUTROPHILS # 6.1 10^3/uL (1.5-8.5); NEUTROPHILS % 59.6 % (36.0-66.0); PLATELET COUNT, AUTOMATED 263 10^3/uL (150-450); RED BLOOD COUNT 4.17 10^6/uL (4.30-6.10); WHITE BLOOD COUNT 10.2 10^3/uL (4.0-10.0)
[2024-06-30 15:32] LABS: HEMOGLOBIN A1c 7.4 % (4.0-6.0)
[2024-06-30 15:43] LABS: LIPASE 16 U/L (12-53)
[2024-06-30 15:49] LABS: ALBUMIN 3.4 G/DL (3.2-5.2); ALKALINE PHOSPHATASE 104 U/L (46-116); ALT/SGPT 30 U/L (7.0-40); AST/SGOT 26 U/L (<34); BILIRUBIN,TOTAL 0.2 MG/DL (0.3-1.2); BLOOD UREA NITROGEN 11 MG/DL (9-23); CALCIUM LEVEL 9.1 MG/DL (8.5-10.1); CARBON DIOXIDE LEVEL 30 MMOL/L (20-31); CHLORIDE LEVEL 103 MMOL/L (98-107); CREATININE FOR GFR 0.93 MG/DL (0.70-1.30); GLOMERULAR FILTRATION RATE > 60.0 (>60); GLUCOSE, FASTING 149 MG/DL (60-100); POTASSIUM SERUM 4.2 MMOL/L (3.5-5.1); SODIUM LEVEL 137 MMOL/L (136-145); TOTAL PROTEIN 6.5 G/DL (5.7-8.2)
[2024-07-01 20:06] LABS: IRON (FE) 50 UG/DL (65-175)
[2024-07-01 20:14] LABS: FERRITIN 28.6 NG/ML (10.5-307.3)
== END ==
LOC: M PLALAB 13:56
PROVIDERS: ATTEND Physician Assistant Medical
DX: K86.1 Other chronic pancreatitis (principal); R71.0 Precipitous drop in hematocrit; E11.65 Type 2 diabetes mellitus with hyperglycemia

== ENCOUNTER 2024-07-27 11:43 | Day surgery (SDC) | payer OTHER ==
[~2024-07-27] VITALS: Ht 182.9 cm; Wt 88.5 kg
[2024-07-27] MEDS: NS 1,000 ML IV ONE (06:00)
[~2024-07-27 11:43] MED LIST changes: -DOXY-323 PO; +DOXY-441 PO; +GABA-1172 PO; -GABA-282 PO
[2024-07-27] MEDS: INSULIN LISPRO (NovoLOG) PER UNIT SC PRN (12:39)
[2024-07-27] MEDS ORDERED: GLYCOPYRROLATE INJ 0.2 MG/ML 2 ML VIAL As Ordered ONE (13:38)
[2024-07-27] MEDS ORDERED: propofoL 200 MG/20 ML VIAL As Ordered ONE (13:38)
[2024-07-27] MEDS ORDERED: LIDOCAINE 2% 100MG/5ML SDV (FOR ANES.) As Ordered ONE (13:38)
[2024-07-27] MEDS ORDERED: fentaNYL 100 MCG/2 ML INJECTION As Ordered ONE (13:39)
[2024-07-27 13:49] VITALS: TEMP 97.1
[2024-07-27 14:06] VITALS: BP 100/57; O2SAT 97
== END 2024-07-27 14:15 | disposition home or self-care (01) ==
LOC: M OPP 11:43
PROVIDERS: ATTEND Internal Medicine Gastroenterology
DX: R12 Heartburn (principal); I10 Essential (primary) hypertension; E78.00 Pure hypercholesterolemia, unspecified; E11.9 Type 2 diabetes mellitus without complications; Z79.899 Other long term (current) drug therapy; Z79.84 Long term (current) use of oral hypoglycemic drugs; Z79.4 Long term (current) use of insulin; Z86.73 Personal history of transient ischemic attack (TIA), and cerebral infarction without residual deficits; F17.210 Nicotine dependence, cigarettes, uncomplicated; Z88.5 Allergy status to narcotic agent
CPT/HCPCS: 43235; J1596; J1815; J3010

== ENCOUNTER 2024-08-03 13:02 | Day surgery (SDC) | payer OTHER ==
[~2024-08-03] VITALS: Ht 182.9 cm; Wt 88.1 kg
[2024-08-03] MEDS: NS 250 ML IV ONE (14:17)
[2024-08-03] MEDS ORDERED: LIDOCAINE 2% 100MG/5ML SDV (FOR ANES.) As Ordered ONE (14:30)
[2024-08-03] MEDS ORDERED: propofoL 200 MG/20 ML VIAL As Ordered ONE (14:30)
[2024-08-03] MEDS ORDERED: GLYCOPYRROLATE INJ 0.2 MG/ML 2 ML VIAL As Ordered ONE (14:30)
[2024-08-03] MEDS ORDERED: CETACAINE SPRAY 5GM As Ordered ONE (15:31)
[2024-08-03 15:57] VITALS: TEMP 98
[2024-08-03 16:32] VITALS: O2SAT 96
[2024-08-03 16:50] VITALS: BP 104/64
== END 2024-08-03 16:54 | disposition home or self-care (01) ==
LOC: M OPP 13:02
PROVIDERS: ATTEND Internal Medicine Gastroenterology
DX: R10.13 Epigastric pain (principal); K31.84 Gastroparesis; T18.2XXA Foreign body in stomach, initial encounter; I10 Essential (primary) hypertension; E78.5 Hyperlipidemia, unspecified; E11.9 Type 2 diabetes mellitus without complications; Z88.5 Allergy status to narcotic agent; Z79.4 Long term (current) use of insulin; Z79.84 Long term (current) use of oral hypoglycemic drugs; Z79.899 Other long term (current) drug therapy
CPT/HCPCS: 43247; J1596

== ENCOUNTER → 2025-01-25 | Outpatient (CLI) | payer OTHER ==
[2025-01-25 15:29] LABS: BASO # 0.1 10^3/uL (0.0-0.2); BASO % 0.8 % (0.0-1.0); EOS # 0.6 10^3/uL (0.0-0.5); EOS % 5.1 % (0.0-3.0); HEMOGLOBIN 13.9 g/dl (13.5-17.5); LYMPH # 3.3 10^3/uL (1.5-5.0); LYMPH % 27.5 % (24.0-44.0); MEAN CORPUSCULAR HGB CONC 32.3 g/dl (32.0-36.5); MEAN CORPUSCULAR VOLUME 89.8 fl (80.0-96.0); MONO # 0.9 10^3/uL (0.0-0.8); MONO % 7.3 % (2.0-8.0); NEUTROPHILS # 7.1 10^3/uL (1.5-8.5); PLATELET COUNT, AUTOMATED 356 10^3/uL (150-450); RED BLOOD COUNT 4.79 10^6/uL (4.30-6.10)
[2025-01-25 15:52] LABS: HEMOGLOBIN A1c 8.7 % (4.0-6.0)
[2025-01-25 15:53] LABS: LIPASE 19 U/L (12-53)
[2025-01-25 15:56] LABS: ALBUMIN 3.9 G/DL (3.2-5.2); ALKALINE PHOSPHATASE 91 U/L (40-129); ALT/SGPT 13 U/L (7.0-40); AST/SGOT < 8 U/L (<34); BILIRUBIN,TOTAL < 0.2 MG/DL (0.3-1.2); BLOOD UREA NITROGEN 15 MG/DL (9-23); CALCIUM LEVEL 10.1 MG/DL (8.5-10.1); CARBON DIOXIDE LEVEL 27 MMOL/L (20-31); CHLORIDE LEVEL 108 MMOL/L (98-107); CHOLESTEROL LEVEL 174 MG/DL (<200); CHOLESTEROL RISK RATIO 5.17 (<5); CREATININE FOR GFR 1.09 MG/DL (0.70-1.30); GLOMERULAR FILTRATION RATE > 60.0 (>60); GLUCOSE, FASTING 268 MG/DL (60-100); HDL CHOLESTEROL 33.6 MG/DL (>40); IRON (FE) 81 UG/DL (65-175); LDL CHOLESTEROL 82.6 MG/DL (<100); NON-HDL-C 140.4 MG/DL; POTASSIUM SERUM 4.3 MMOL/L (3.5-5.1); SODIUM LEVEL 143 MMOL/L (136-145); TOTAL PROTEIN 7.5 G/DL (5.7-8.2); TRIGLYCERIDES LEVEL 289 MG/DL (<150)
[2025-01-25 15:57] LABS: FREE T4 0.79 NG/DL (0.89-1.76); THYROID STIMULATING HORMONE 35.672 uIU/ML (0.55-4.78)
[2025-01-25 15:58] LABS: FERRITIN 17.1 NG/ML (10.5-307.3); VITAMIN B12 LEVEL 344 PG/ML (211-911)
== END ==
LOC: M PLALAB 12:41
PROVIDERS: ATTEND Physician Assistant Medical
DX: J35.1 Hypertrophy of tonsils (principal); R25.2 Cramp and spasm; E11.65 Type 2 diabetes mellitus with hyperglycemia; Z87.19 Personal history of other diseases of the digestive system; R13.19 Other dysphagia; F41.8 Other specified anxiety disorders; I10 Essential (primary) hypertension; D64.9 Anemia, unspecified; E78.5 Hyperlipidemia, unspecified

== ENCOUNTER 2025-02-15 13:36 | Outpatient (CLI) | payer OTHER ==
[~2025-02-15] VITALS: Ht 182.9 cm; Wt 81.8 kg
[~2025-02-15 13:36] MED LIST changes: +ALBUTEROL SULFATE 2.5MG/0.5ML INH CONCENTRATE NEB SOLN INH PRN; +AMLO-751 PO; -AMLO10TA PO; +EPINEPHrine INJ 1 MG/ML 1ML AMP IM PRN; +diphenhydrAMINE 50MG/ML VIAL IV PRN; +methylPREDNISolone 125MG 2ML VIAL IV PRN
[2025-02-15 14:00] VITALS: BP 134/84; O2SAT 99
[2025-02-15] MEDS ORDERED: diphenhydrAMINE 25MG CAP PO ONE (14:00)
[2025-02-15] MEDS ORDERED: IRON SUCROSE 300 MG in NS 250 ML OVER 90 MIN. IV ONE (14:30)
[2025-02-15] MEDS: IRON SUCROSE 100 MG, IRON SUCROSE COMPLEX 200 MG in NS 250 ML IV ONE (14:37)
[2025-02-15 16:30] VITALS: BP 130/80; O2SAT 99
== END 2025-02-15 16:30 ==
LOC: M INFU 13:36
PROVIDERS: ATTEND Physician Assistant Medical
DX: D50.9 Iron deficiency anemia, unspecified (principal); Z88.5 Allergy status to narcotic agent
CPT/HCPCS: 96365; J1756

== ENCOUNTER → 2025-05-19 | Outpatient (CLI) | payer OTHER ==
[~2025-05-19] MED LIST changes: -ALBUTEROL SULFATE 2.5MG/0.5ML INH CONCENTRATE NEB SOLN INH PRN; +AMIT10TA11 PO; -AMIT10TA7 PO; -EPINEPHrine INJ 1 MG/ML 1ML AMP IM PRN; +PRAV10TA PO; -PRAV10TA4 PO; -diphenhydrAMINE 50MG/ML VIAL IV PRN; -methylPREDNISolone 125MG 2ML VIAL IV PRN
[2025-05-19 15:25] LABS: BASO # 0.1 10^3/uL (0.0-0.2); BASO % 0.4 % (0.0-1.0); EOS # 0.3 10^3/uL (0.0-0.5); EOS % 3.0 % (0.0-3.0); LYMPH # 3.6 10^3/uL (1.5-5.0); LYMPH % 32.6 % (24.0-44.0); MONO # 0.8 10^3/uL (0.0-0.8); MONO % 6.8 % (2.0-8.0); NEUTROPHILS # 6.3 10^3/uL (1.5-8.5); NEUTROPHILS % 56.8 % (36.0-66.0); PLATELET COUNT, AUTOMATED 328 10^3/uL (150-450)
[2025-05-19 15:32] LABS: ALT/SGPT 18 U/L (7.0-40); AST/SGOT 15 U/L (<34); CALCIUM LEVEL 10.0 MG/DL (8.5-10.1); CARBON DIOXIDE LEVEL 26 MMOL/L (20-31); CHLORIDE LEVEL 107 MMOL/L (98-107); CK-MB VALUE MASS < 1.0 NG/ML (<3.6); CREATININE FOR GFR 0.99 MG/DL (0.70-1.30); GLOMERULAR FILTRATION RATE > 90.0 (>60); IRON (FE) 131 UG/DL (65-175); POTASSIUM SERUM 4.1 MMOL/L (3.5-5.1); SODIUM LEVEL 141 MMOL/L (136-145)
[2025-05-19 15:35] LABS: MYOGLOBIN 33.0 NG/ML (<110)
[2025-05-19 15:36] LABS: CPK CREATINE PHOSPHOKINASE 36 U/L (46-171)
== END ==
LOC: M PLALAB 13:15
PROVIDERS: ATTEND Physician Assistant Medical
DX: K92.2 Gastrointestinal hemorrhage, unspecified (principal); K21.9 Gastro-esophageal reflux disease without esophagitis; E11.65 Type 2 diabetes mellitus with hyperglycemia; Z87.19 Personal history of other diseases of the digestive system